=== PATIENT | female | born 1945 | race African-American/Black ===

== ENCOUNTER 2016-07-21 18:17 | Emergency (ER) | payer MEDICARE, OTHER ==
[~2016-07-21] VITALS: Ht 175.3 cm; Wt 100.0 kg
[~2016-07-21 18:17] MED LIST: CELE1CAP6 PO; CLON0.1T PO; CYCL1TAB29 PO; DICY10CA12 PO; FLUO20CA4 PO; GABA300C5 PO; GLIP10TA6 PO; HYDR-3133 PO; L-METAB10 PO; LIDO1PAD52 TOPICAL; MONT10TA2 PO; OMEP20TA PO; SITA1TAB2 PO; TRAM50TA PO; VALS320T4 PO; VERA120T3 PO
[2016-07-21 18:19] VITALS: BP 149/89; PULSE 91; RESP 16; TEMP 98.1; O2SAT 96
[2016-07-21] MEDS ORDERED: ROBA500T PO (19:50)
--- NOTE | 2016-07-21 19:56 | PD ---
HPI Chief Complaint: Back/ Neck Pain or Injury Time Seen by Provider: 19:50 Travel History International Travel<30 days: No Contact w/Intl Traveler<30days: No Traveled to known affect area: No History of Present Illness HPI 70-year-old black female presents emergency Department with complains of lower back cramping with radiation of pain into the right leg. The patient has a history of left sciatica which was operated on by Dr. Casey several years ago and had several pins in her back. She states that this seems somewhat similar but states that it appears to be more cramping this time. She denies any direct trauma. She does report a fall back in January but does not report having a back injury at that time. She is just recovering from right rotator cuff surgery from back in June. She denies any acute bowel or bladder changes. No numbness or tingling. She states the pain is worse when she stands, bends and moves. She also has more pain when she lays down. She finds sitting to be more comfortable. [facility] Past Medical History Narrative Medical Diabetes, heart disease, hypertension, degenerative disc disease with lumbar fusion, asthma, sarcoidosis Arthritis: Yes (BACK) Asthma: Yes Autoimmune Disease: Yes (SARCOIDOSIS) Blood Disorders: No Anxiety: Yes Depression: Yes Cancer: No Cardiovascular Problems: Yes (HTN) Diabetes: Yes Diminished Hearing: No Endocrine: Yes Genitourinary: No Headaches: Yes Hepatitis: No Hiatal Hernia: No Hypertension: Yes Immune Disorder: Yes (sarcodosis) Musculoskeletal: Yes (hx of sciatica, BILATERAL HIP PAIN, R SHOULDER PAIN) Neurologic: No Psychiatric: No Reproductive: No Respiratory: Yes (ASTHMA ) Immunizations Current: Yes Migraines: Yes Thyroid Disease: No Tetanus Vaccination: < 5 Years Menopausal: Yes Past Surgical History Abdominal Surgery: Yes (gastric by-pass) AICD: No Appendectomy: Yes Body Medical Devices: 3 SCREWS L HIP Cholecystectomy: Yes Gynecologic Surgery: Yes (hysterectomy) Hysterectomy: Yes Joint Replacement: Yes (loreto knees) Pacemaker: No Tympanostomy Tube: No Other Surgery: Yes (LEFT SHOULDER SUGERY -TORN ROTATOR CUFF) Social History Alcohol Use: No Tobacco Use: No Substance Use: No Allergies-Medications (Allergen,Severity, Reaction): Coded Allergies: Codeine (Verified Allergy, Severe, ITCHING, 07/21/16) Darvocet-N 100 (Verified Allergy, Severe, ITCHING, 07/21/16) Lortab (Verified Allergy, Severe, NAUSEA, ITCHING, 07/21/16) PT STATES SHE TAKES BENADRYL PRIOR TO TAKING LORTABS Morphine (Verified Allergy, Severe, ITCHING, 07/21/16) Percodan (Verified Allergy, Severe, GI UPSET, 07/21/16) Reported Meds & Prescriptions Reported Meds & Active Scripts Active Tramadol (Tramadol HCl) 50 Mg Tab 100 Mg PO Q6H PRN Reported Flexeril (Cyclobenzaprine HCl) 10 Mg Tab 20 Mg PO HS Lidocaine Patch 12 HR (Lidocaine) 5 % Patch 1 Patch TOPICAL BID Remove patch after 12 hours Januvia (Sitagliptin Phosphate) 100 Mg Tab 100 Mg PO HS Omeprazole 20 Mg Tab 20 Mg PO BID Foltanx (a-Mwmjywtohbfm-Irfkrrs B6-Cyanocobal) 3-35-2 Mg Tab 1 Tab PO DAILY Singulair (Montelukast Sodium) 10 Mg Tab 10 Mg PO HS Verapamil (Verapamil HCl) 120 Mg Tab 180 Mg PO HS Valsartan-Hydrochlorothiazide 320-12.5 Mg Tab 1 Tab PO DAILY Glipizide 10 Mg Tab 10 Mg PO DAILY Take 30 minutes before a meal Hydroxyzine HCl 25 Mg Tab 25 Mg PO HS PRN Gabapentin 300 Mg Cap 300 Mg PO HS Clonidine (Clonidine HCl) 0.1 Mg Tab 0.1 Mg PO BID PRN Fluoxetine (Fluoxetine HCl) 20 Mg Cap 20 Mg PO DAILY Celecoxib 100 Mg Cap 100 Mg PO BID Review of Systems Except as stated in HPI: all other systems reviewed are Neg Physical Exam Narrative GENERAL: Well-developed, obese, in no apparent distress. Nontoxic appearing. Moves slowly. HEAD: Normocephalic, atraumatic. EYES: Pupils equal round and reactive. Extraocular motions intact. No scleral icterus. No injection or drainage. ENT: Nose clear. Throat without erythema, tonsillar hypertrophy or exudate. Uvula midline. Airway patent. NECK: Trachea midline. Supple, nontender, moves head freely. No central bony tenderness or spasm. CARDIOVASCULAR: Regular rate and rhythm without murmurs, gallops, or rubs. RESPIRATORY: Clear to auscultation. Breath sounds equal bilaterally. No wheezes , rales, or rhonchi. GASTROINTESTINAL: Abdomen soft, non-tender, nondistended. No hepato-splenomegaly , or palpable masses. No guarding. EXTREMITIES: No clubbing, cyanosis, or edema. No joint tenderness. BACK: No central bony tenderness of palpation of dorsal lumbar spine. She complains of tenderness in the right SI region and right buttocks. No saddle anesthesia. Negative straight leg raise. No gross weakness. Without deformity. No flank tenderness. NEUROLOGICAL: Awake, alert and oriented x 3 .Cranial nerves grossly intact. Motor and sensory grossly within normal limits. Normal speech. Data Data Last Documented VS Vital Signs Date Time Temp Pulse Resp B/P Pulse Ox O2 Delivery O2 Flow Rate FiO2 07/21/16 18:19 98.1 91 16 149/89 96 Room Air MDM Medical Decision Making Medical Screen Exam Complete: Yes Emergency Medical Condition: Yes Medical Record Reviewed: Yes Differential Diagnosis MDM: High Differential diagnoses: AAA,Fracture, sprain, strain, HNP, nerve or vascular injury, epidural abscess, pilonidal cyst, pyelonephritis, UTI, nephrolithiasis, ureterolithiasis Narrative Course The patient sounds as if she is having exacerbation of sciatica which involving the right side of her back. She has allergies to opiates. She states that she cannot take narcotics. She typically takes Tylenol PM. I explained to her that we can add in a muscle relaxer and have her increase her Neurontin to 3 times a day. I've advised her to see her primary care doctor about getting a referral back to her neurosurgeon who performed her back surgery. She may need to have some additional imaging as well as injections if symptoms persist. I told her that I would not prescribe steroids at this time because of her diabetes. We will try the increase in Neurontin and Robaxin. She may consider also taking Ultram possibly. Diagnosis Primary Impression: lower back pain with right sciatica Patient Instructions: General Instructions Additional Instructions: Rest. Ice for the next 3 days followed by heat . Robaxin. Increase your gabapentin/Neurontin to 3 times a day.. Follow-up with a primary care doctor in one week. Consider follow-up with Dr. Casey your neurosurgeon. Return to the ER for emergencies. Med/Other Pt SpecificInfo: Prescription(s) given Scripts Methocarbamol (Robaxin)500 Mg [id number] Mg PO QID #40 TAB Prov:Shivam Muñoz MD 07/21/16 Disposition: 01 DISCHARGE HOME Condition: Stable Dom Reyes Jul 21, 2016 19:56
[2016-07-21] MEDS ORDERED: KETOROLAC TROMETHAMINE 60 MG/2 ML (IM) VIAL IM ONE (20:15)
[2016-07-21] MEDS ORDERED: ORPHENADRINE INJ 60 MG/2 ML AMP IM ONE (20:15)
== END 2016-07-21 20:30 | disposition home or self-care (01) ==
LOC: NEPB 18:17
DX: M54.31 Sciatica, right side (principal); M54.5 Low back pain; J45.909 Unspecified asthma, uncomplicated; I10 Essential (primary) hypertension; E11.9 Type 2 diabetes mellitus without complications; Z98.1 Arthrodesis status
CPT/HCPCS: 96372; 99283; J1885; J2360

== ENCOUNTER 2016-10-07 00:43 | Emergency (ER) | payer MEDICARE, OTHER ==
[~2016-10-07] VITALS: Ht 175.3 cm; Wt 100.0 kg
[~2016-10-07 00:43] MED LIST changes: -DICY10CA12 PO; +ROBA500T PO
[2016-10-07 00:46] VITALS: BP 174/78; PULSE 78; RESP 16; TEMP 98.1; O2SAT 99
[2016-10-07 00:58] VITALS: BP 155/72; PULSE 80; RESP 16; TEMP 98; O2SAT 99
== END 2016-10-07 01:16 | disposition left against medical advice (07) ==
LOC: NED 00:43
DX: R51 Headache (principal)
CPT/HCPCS: 99281

== ENCOUNTER 2017-01-01 09:46 | Emergency (ER) | payer MEDICARE, OTHER ==
[~2017-01-01] VITALS: Ht 170.2 cm; Wt 100.0 kg
[2017-01-01 09:49] VITALS: BP 134/66; PULSE 90; RESP 18; TEMP 99.5; O2SAT 97
[2017-01-01] MEDS ORDERED: SODIUM CHLOR 0.9% 1000 ML INJ 1,000 ML IV SCH (10:04)
--- NOTE | 2017-01-01 10:13 | PD ---
HPI Chief Complaint: GI Complaint Time Seen by Provider: 10:03 Travel History International Travel<30 days: No Contact w/Intl Traveler<30days: No Traveled to known affect area: No History of Present Illness HPI HAS HAD DUMPING SYNDROME SINCE 2005 OR SO, BUT IT HAS NEVER LASTED THIS LONG, NO NAUSEA/VOMITING, BUT MULTIPLE DIARRHEA BOUTS, YESTERDAY ABOUT 5-6 EPISODES ASSOC WITH EATING. NO ABD PAIN....NO FEVER/URI SX/CP/ PFSH Past Medical History Arthritis: Yes (BACK) Asthma: Yes Autoimmune Disease: Yes (SARCOIDOSIS) Blood Disorders: No Anxiety: Yes Depression: Yes Cancer: No Cardiovascular Problems: Yes (htn) Diabetes: Yes (metformin) Patient Takes Glucophage: No Diminished Hearing: No Endocrine: Yes Genitourinary: No Headaches: Yes Hepatitis: No Hiatal Hernia: No Hypertension: Yes Immune Disorder: Yes (sarcodosis) Musculoskeletal: Yes (hx of sciatica, BILATERAL HIP PAIN, R SHOULDER PAIN) Neurologic: No Psychiatric: No Reproductive: No Respiratory: Yes (asthma) Immunizations Current: Yes Migraines: Yes Thyroid Disease: No Menopausal: Yes Past Surgical History Abdominal Surgery: Yes (gastric by-pass) AICD: No Appendectomy: Yes Body Medical Devices: 3 SCREWS L HIP Cholecystectomy: Yes Gynecologic Surgery: Yes (hysterectomy) Hysterectomy: Yes Joint Replacement: Yes (loreto knees) Pacemaker: No Tympanostomy Tube: No Other Surgery: Yes (LEFT SHOULDER SUGERY -TORN ROTATOR CUFF) Social History Alcohol Use: No Tobacco Use: No Substance Use: No Allergies-Medications (Allergen,Severity, Reaction): Coded Allergies: Codeine (Verified Allergy, Severe, ITCHING, 07/21/16) Darvocet-N 100 (Verified Allergy, Severe, ITCHING, 07/21/16) Lortab (Verified Allergy, Severe, NAUSEA, ITCHING, 07/21/16) PT STATES SHE TAKES BENADRYL PRIOR TO TAKING LORTABS Morphine (Verified Allergy, Severe, ITCHING, 07/21/16) Percodan (Verified Allergy, Severe, GI UPSET, 07/21/16) Reported Meds & Prescriptions Reported Meds & Active Scripts Active Robaxin (Methocarbamol) 500 Mg Tab 500 Mg PO QID Tramadol (Tramadol HCl) 50 Mg Tab 100 Mg PO Q6H PRN Reported Lidocaine Patch 12 HR (Lidocaine) 5 % Patch 1 Patch TOPICAL BID Remove patch after 12 hours Januvia (Sitagliptin Phosphate) 100 Mg Tab 100 Mg PO HS Omeprazole 20 Mg Tab 20 Mg PO BID Foltanx (x-Ormrnocgdkjd-Yfmlecd B6-Cyanocobal) 3-35-2 Mg Tab 1 Tab PO DAILY Singulair (Montelukast Sodium) 10 Mg Tab 10 Mg PO HS Valsartan-Hydrochlorothiazide 320-12.5 Mg Tab 1 Tab PO DAILY Glipizide 10 Mg Tab 10 Mg PO DAILY Take 30 minutes before a meal Hydroxyzine HCl 25 Mg Tab 25 Mg PO HS PRN Gabapentin 300 Mg Cap 300 Mg PO HS Clonidine (Clonidine HCl) 0.1 Mg Tab 0.1 Mg PO BID PRN Celecoxib 100 Mg Cap 100 Mg PO BID Review of Systems Except as stated in HPI: all other systems reviewed are Neg Gastrointestinal: Positive: Diarrhea Physical Exam Narrative GENERAL: SKIN: Warm and dry. HEAD: Atraumatic. Normocephalic. EYES: Pupils equal and round. No scleral icterus. No injection or drainage. ENT: No nasal bleeding or discharge. Mucous membranes pink and moist. NECK: Trachea midline. No JVD. CARDIOVASCULAR: Regular rate and rhythm. RESPIRATORY: No accessory muscle use. Clear to auscultation. Breath sounds equal bilaterally. GASTROINTESTINAL: Abdomen soft, non-tender, nondistended. Hepatic and splenic margins not palpable. MUSCULOSKELETAL: Extremities without clubbing, cyanosis, or edema. No obvious deformities. NEUROLOGICAL: Awake and alert. No obvious cranial nerve deficits. Motor grossly within normal limits. Five out of 5 muscle strength in the arms and legs. Normal speech. PSYCHIATRIC: Appropriate mood and affect; insight and judgment normal. Data Data Last Documented VS Vital Signs Date Time Temp Pulse Resp B/P Pulse Ox O2 Delivery O2 Flow Rate FiO2 01/01/17 10:17 95 01/01/17 09:49 99.5 90 18 134/66 Orders Complete Blood Count With Diff (01/01/17 10:04) Comprehensive Metabolic Panel (01/01/17 10:04) Lipase (01/01/17 10:04) Prothrombin Time / Inr (Pt) (01/01/17 10:04) Act Partial Throm Time (Ptt) (01/01/17 10:04) Ct Abd/Pel W/O Iv Contrast (01/01/17 10:04) Iv Access Insert/Monitor (01/01/17 10:04) Ecg Monitoring (01/01/17 10:04) Oximetry (01/01/17 10:04) Sodium Chlor 0.9% 1000 Ml Inj (Ns 1000 M (01/01/17 10:04) Sodium Chloride 0.9% Flush (Ns Flush) (01/01/17 10:15) Labs Laboratory Tests Test 01/01/17 10:15 White Blood Count 7.9 TH/MM3 Red Blood Count 4.20 MIL/MM3 Hemoglobin 11.9 GM/DL Hematocrit 36.2 % Mean Corpuscular Volume 86.1 FL Mean Corpuscular Hemoglobin 28.4 PG Mean Corpuscular Hemoglobin 33.0 % Concent Red Cell Distribution Width 13.6 % Platelet Count 277 TH/MM3 Mean Platelet Volume 8.2 FL Neutrophils (%) (Auto) 56.1 % Lymphocytes (%) (Auto) 34.5 % Monocytes (%) (Auto) 6.9 % Eosinophils (%) (Auto) 1.3 % Basophils (%) (Auto) 1.2 % Neutrophils # (Auto) 4.4 TH/MM3 Lymphocytes # (Auto) 2.7 TH/MM3 Monocytes # (Auto) 0.5 TH/MM3 Eosinophils # (Auto) 0.1 TH/MM3 Basophils # (Auto) 0.1 TH/MM3 CBC Comment DIFF FINAL Differential Comment Prothrombin Time 10.7 SEC Prothromb Time International 1.0 RATIO Ratio Activated Partial 24.6 SEC Thromboplast Time Sodium Level 136 MEQ/L Potassium Level 3.8 MEQ/L Chloride Level 101 MEQ/L Carbon Dioxide Level 26.1 MEQ/L Anion Gap 9 MEQ/L Blood Urea Nitrogen 14 MG/DL Creatinine 1.08 MG/DL Estimat Glomerular Filtration 61 ML/MIN Rate Random Glucose 245 MG/DL Calcium Level 8.8 MG/DL Total Bilirubin 0.5 MG/DL Aspartate Amino Transf 20 U/L (AST/SGOT) Alanine Aminotransferase 16 U/L (ALT/SGPT) Alkaline Phosphatase 99 U/L Total Protein 7.5 GM/DL Albumin 3.2 GM/DL Lipase 136 U/L [facility] Medical Decision Making Medical Screen Exam Complete: Yes Emergency Medical Condition: Yes Medical Record Reviewed: Yes Differential Diagnosis VIRAL V BACTERIAL ENTERITIS V DUMPING SYNDROME Narrative Course ELECTROLYTES NL, CBC NO ANEMIA AND NO SHIFT, CT WAS ONLY POSITIVE FOR DIVERTICULOSIS, WILL D/C HOME WITH ANTI DIARRHEALS Diagnosis Primary Impression: DIARRHEA DUE TO DUMPING SYNDROME Additional Impression: DIVERTICULOSIS Patient Instructions: General Instructions Med/Other Pt SpecificInfo: Prescription(s) given Scripts Metronidazole (Flagyl)500 Mg [id number] Mg PO TID #21 TAB Ref 0 Prov:Gato Roberson MD 01/01/17 Diphenoxylate-Atropine (Lomotil)2.5-0.025 Mg Tab1 Tab PO Q6H PRN (DIARRHEA) #20 TAB Prov:Gato Roberson MD 01/01/17 Disposition: 01 DISCHARGE HOME Condition: Stable Gato Roberson MD Jan 01, 2017 10:13
[2017-01-01] MEDS ORDERED: SODIUM CHLORIDE 0.9% FLUSH 10 ML FLUSH IV FLUSH PRN (10:15)
[2017-01-01] MEDS ORDERED: FLUO20CA12 PO (10:16)
[2017-01-01 10:17] VITALS: O2SAT 95
[2017-01-01 10:28] LABS: AUTOMATED NEUTROPHIL # 4.4 TH/MM3 (1.8-7.7); BASOPHIL # 0.1 TH/MM3 (0-0.2); BASOPHIL % 1.2 % (0.0-2.0); EOSINOPHIL # 0.1 TH/MM3 (0-0.4); EOSINOPHIL % 1.3 % (0.0-4.0); HEMATOCRIT 36.2 % (35.0-46.0); HEMO FLAGS DIFF FINAL; LYMPH % 34.5 % (9.0-44.0); LYMPHOCYTE # 2.7 TH/MM3 (1.0-4.8); MEAN CELL VOLUME 86.1 FL (80.0-100.0); MEAN CORPUSCULAR HEMOGLOBIN 28.4 PG (27.0-34.0); MONO % 6.9 % (0.0-8.0); NEUT % 56.1 % (16.0-70.0); PLATELET COUNT 277 TH/MM3 (150-450); RED CELL DISTRIBUTION WIDTH 13.6 % (11.6-17.2); WHITE BLOOD COUNT 7.9 TH/MM3 (4.0-11.0)
[2017-01-01 10:33] LABS: APTT (PATIENT) 24.6 SEC (24.3-30.1); PROTHROMBIN TIME - PATIENT 10.7 SEC (9.8-11.6)
--- NOTE | 2017-01-01 10:38 | RADRPT ---
EXAM DATE/TIME: 01/01/2017 10:24 [facility] COMPARISON: CT ABDOMEN & PELVIS W CONTRAST, November 15, 2010, 18:20. INDICATIONS : Diarrhea. Possible renal calculi. ORAL CONTRAST: No oral contrast ingested. RADIATION DOSE: 16.61 CTDIvol (mGy) MEDICAL HISTORY : Cardiovascular disease. Hypertension. Sarcoidosis SURGICAL HISTORY : Gastric bypass. Cholecystectomy.Hysterectomy.Rectocele, Bladder repair ENCOUNTER: Initial ACUITY: 4 - 6 days PAIN SCALE: 6/10 LOCATION: medial abdomen TECHNIQUE: Volumetric scanning of the abdomen and pelvis was performed. Using automated exposure control and ad justment of the mA and/or kV according to patient size, radiation dose was kept as low as reasonably achievable to obtain optimal diagnostic quality images. FINDINGS: Lung bases are clear except for minimal scarring. No significant abnormalities in the liver, spleen, adrenals or pancreas. Linear scarring in both kidn eys. Postoperative gastric bypass surgery. No free fluid or free air. No bowel obstruction. Postoperative hysterectomy. Colonic diverticulosis without diverticulitis. Small fat-containing umbil ical hernia. Previous surgical fusion across the left sacroiliac joint. No acute bony abnormality. CONCLUSION: No acute findings with an abdomen and pelvic CT. Postoperative gastric bypass surgery, cholecystectom y, hysterectomy and fusion of left sacroiliac joint. Colonic diverticulosis without diverticulitis. No bowel obstruction, free air, free fluid or evidence for obstructive uropathy. Dom Mendez MD on January 01, 2017 at 10:32 Board Certified Radiologist. This report was verified electronically.
[2017-01-01 10:43] LABS: ANION GAP 9 MEQ/L (5-15); AST (GOT) 20 U/L (15-37); BICARBONATE 26.1 MEQ/L (21.0-32.0); BLOOD UREA NITROGEN 14 MG/DL (7-18); CHLORIDE 101 MEQ/L (98-107); GLOMERULAR FILTRATION RATE 61 ML/MIN (>89); POTASSIUM 3.8 MEQ/L (3.5-5.1); SODIUM (NA) 136 MEQ/L (136-145)
[2017-01-01 10:44] LABS: ALT (GPT) 16 U/L (10-53)
[2017-01-01 10:46] LABS: ALKALINE PHOSPHATASE 99 U/L (45-117); TOTAL BILIRUBIN ADULT 0.5 MG/DL (0.2-1.0)
[2017-01-01] MEDS ORDERED: LOMO2.5T PO (11:35)
[2017-01-01] MEDS ORDERED: METR-1 PO (11:35)
== END 2017-01-01 12:00 | disposition home or self-care (01) ==
LOC: NEPC 09:46
DX: K91.1 Postgastric surgery syndromes (principal); K57.90 Diverticulosis of intestine, part unspecified, without perforation or abscess without bleeding; D86.9 Sarcoidosis, unspecified; I10 Essential (primary) hypertension
CPT/HCPCS: 74176; 80053; 83690; 85025; 85610; 85730; 96360; 99285; J7030

== ENCOUNTER → 2017-01-20 | Day surgery (SDC) | payer MEDICARE, OTHER ==
[~2017-01-20] MED LIST changes: +BUPIVACAINE HCL PF 0.5% 30 ML VIAL ONE; -CYCL1TAB29 PO; +FLUO20CA12 PO; -FLUO20CA4 PO; +LOMO2.5T PO; +METR-1 PO; +PROPOFOL 200 MG/20 ML AMP IV ONE; +TRIAMCINOLONE ACETONIDE 40 MG/ML VIAL I-ARTICULR ONE; -VERA120T3 PO; +methylPREDNISolone ACETATE 40 MG/ML VIAL I-ARTICULR ONE
--- NOTE | 2017-01-21 10:24 | M6 ---
cc: MAYANK ARAUZ M.D. DATE: 01/20/2017 1945 PROCEDURE Fluoroscopically guided injection right sacroiliac joint. History and physical was completed and signed. Consent was signed. Procedure site was marked. Medications were listed and reconciled. Pain score was recorded. Allergies were noted. Time out was taken. Fluoroscopy time was recorded where applicable. Sedation was administered or directed by Dr. Arauz. The patient was given oxygen. The patient was monitored by a registered nurse. Total procedure time was greater than 15 minutes. IV was started, blood pressure cuff, pulse oximeter and EKG were applied. The patient was placed in the prone position on a Grupo table, sedated with small amounts of propofol titrated to effect. Vital signs were monitored and remained stable throughout the procedure. Fluoroscopy was used shooting from medial to lateral to clearly visualize the posterior joint line of the right sacroiliac joint. A 5-inch 22-gauge spinal needle was advanced into the joint under fluoroscopic guidance. There was negative aspiration for blood or any other type of fluid and the patient was given 2 mL of 0.5% Marcaine, 20 mg of Depo-Medrol, 20 mg of Kenalog. Following the procedure the patient was taken to the recovery room with stable vital signs, neurologically intact. She will be evaluated immediately and with followup to determine if she has a subjective decrease in her usual pain and a corresponding objective increase in her functional capabilities. W. MD DHRUV Cramer/MERRY /9:48 AM /10:23 AM
== END | disposition home or self-care (01) ==
LOC: PHSDC 08:30
PROVIDERS: ATTEND Pain Medicine Interventional Pain Medicine
DX: M53.3 Sacrococcygeal disorders, not elsewhere classified (principal); I10 Essential (primary) hypertension; E11.9 Type 2 diabetes mellitus without complications; J45.909 Unspecified asthma, uncomplicated
CPT/HCPCS: 99152; G0260; J1030; J3301; 27096

== ENCOUNTER → 2017-01-22 | Outpatient (CLI) | payer MEDICARE, OTHER ==
[~2017-01-22] MED LIST changes: -BUPIVACAINE HCL PF 0.5% 30 ML VIAL ONE; -METR-1 PO; -PROPOFOL 200 MG/20 ML AMP IV ONE; -TRIAMCINOLONE ACETONIDE 40 MG/ML VIAL I-ARTICULR ONE; -methylPREDNISolone ACETATE 40 MG/ML VIAL I-ARTICULR ONE
[2017-01-22 09:34] LABS: ANION GAP 8 MEQ/L (5-15); AST (GOT) 9 U/L (15-37); BICARBONATE 24.2 MEQ/L (21.0-32.0); BLOOD UREA NITROGEN 19 MG/DL (7-18); CHLORIDE 106 MEQ/L (98-107); GLOMERULAR FILTRATION RATE 75 ML/MIN (>89); GLUCOSE,FASTING 143 MG/DL (74-99); POTASSIUM 3.8 MEQ/L (3.5-5.1); SODIUM (NA) 138 MEQ/L (136-145)
[2017-01-22 09:36] LABS: ALT (GPT) 13 U/L (10-53)
[2017-01-22 09:37] LABS: ALKALINE PHOSPHATASE 84 U/L (45-117); HDL CHOLESTEROL 65.8 MG/DL (40.0-60.0); LDL CHOLESTEROL 114 MG/DL (0-99); TOTAL BILIRUBIN ADULT 0.3 MG/DL (0.2-1.0)
[2017-01-22 17:14] LABS: HEMOGLOBIN A1b 2.1 %; HEMOGLOBIN Ao 80.7 %; HEMOGLOBIN LA1C 2.3 %; HEMOGLOBIN P3 4.7 %
== END ==
LOC: CLAB 08:48
PROVIDERS: ATTEND Family Medicine
DX: E78.5 Hyperlipidemia, unspecified (principal); E78.00 Pure hypercholesterolemia, unspecified; D56.5 Hemoglobin E-beta thalassemia; E11.9 Type 2 diabetes mellitus without complications; Z01.01 Encounter for examination of eyes and vision with abnormal findings; Z79.891 Long term (current) use of opiate analgesic
CPT/HCPCS: 36415; 80053; 80061; 83036

== ENCOUNTER → 2017-02-03 | Day surgery (SDC) | payer MEDICARE, OTHER ==
[~2017-02-03] MED LIST changes: +IOHEXOL 180 MG/ML 20 ML VIAL (for RAD DIAG) NERV BLOCK ONE; +LIDOCAINE HCL 1% 30 ML VIAL NERV BLOCK ONE; +PROPOFOL 200 MG/20 ML AMP IV ONE; +TRIAMCINOLONE ACETONIDE 40 MG/ML VIAL NERV BLOCK ONE
--- NOTE | 2017-02-06 22:15 | M6 ---
cc: Sam ARAUZ DATE 02/03/17 1945 PROCEDURE Fluoroscopically guided right L4-5 and right L5-S1 transforaminal epidural steroid injection. PREPROCEDURE NOTE On 01/20/2017, we performed fluoroscopically guided injection of Ms. Leong's right sacroiliac joint. She is already status post left sacroiliac joint fusion. The next day following the sacroiliac joint injection, we talked with the patient and she states that her right-sided hip and buttocks pain reduced from an 8/10 down to a 1/10, so she had near-complete relief of her pain and that lasted for approximately three days. Now her pain is back to baseline. She is having some right buttocks pain with some extension into the right leg and we are performing a right L4-5 and right L5-S1 selective nerve root injection of local anesthetic and steroid and comparing the relief she has with the previous sacroiliac joint injection. History and physical was completed and signed. Consent was signed. Procedure site was marked. Medications were listed and reconciled. Pain score was recorded. Allergies were noted. Time out was taken. Fluoroscopy time was recorded where applicable. Sedation was administered or directed by Dr. Arauz. The patient was given oxygen. The patient was monitored by a registered nurse. Total procedure time was greater than 15 minutes. PROCEDURE NOTE: An IV was started, blood pressure cuff, pulse oximeter and EKG were applied. The patient was placed in the prone position on a Grupo table, sedated with small amounts of Versed and propofol titrated to effect. Vital signs were monitored and remained stable throughout the procedure. The patient remained responsive throughout the procedure. The lumbar area was scrubbed with antimicrobial solution, prepped with 10% Betadine solution, and draped with sterile drapes. Fluoroscopy was used in both the AP and lateral projections to clearly visualize the right L4-5 and right L5-S1 neural foramen. Then separate sterile 22 gauge, 3 1/2-inch Chiba needles were advanced under fluoroscopic guidance into the dorsal-most aspect of each foramen. There was negative aspiration for blood or CSF. There were no reported paresthesias by the patient. There was no washout of 2 mL of Omnipaque. Then after waiting approximately 60 seconds, the patient was slowly given 3 mL of 1% Xylocaine 3 mL of Omnipaque and 40 mg of Kenalog at each location. W. MD DHRUV Cramer/ /9:55 AM /10:04 PM
== END | disposition home or self-care (01) ==
LOC: PHSDC 07:22
PROVIDERS: ATTEND Pain Medicine Interventional Pain Medicine
DX: M54.5 Low back pain (principal); Z98.1 Arthrodesis status
CPT/HCPCS: 64483; 64484; 99152; J3301; Q9965

== ENCOUNTER → 2017-03-03 | Outpatient (CLI) | payer MEDICARE, OTHER ==
[~2017-03-03] MED LIST changes: +ACET25TA2 PO; +AMIO200T PO; +AMLO5 PO; +ATOR40TA16 PO; -CELE1CAP6 PO; -CLON0.1T PO; +COMMODE 3-IN-11 MIS; +DOCU1CAP39 PO; +GLIP5 PO; -IOHEXOL 180 MG/ML 20 ML VIAL (for RAD DIAG) NERV BLOCK ONE; -L-METAB10 PO; -LIDOCAINE HCL 1% 30 ML VIAL NERV BLOCK ONE; +METO25TA3 PO; +MONT10TA4 PO; +NEUR300C PO; +NOVOLOGP2 SQ; +PANT40TA3 PO; +PLAV75TA29 PO; +POLY17S PO; -PROPOFOL 200 MG/20 ML AMP IV ONE; +PROT40TA PO; +THERM PO; -TRIAMCINOLONE ACETONIDE 40 MG/ML VIAL NERV BLOCK ONE; +ULTR50TA5 PO; +VENTAER INH; +WHEEMIS3; +[UNRECOGNIZED DRUG - SUPPLY]
[2017-03-03 09:50] LABS: ANION GAP 8 MEQ/L (5-15); BICARBONATE 25.6 MEQ/L (21.0-32.0); BLOOD UREA NITROGEN 18 MG/DL (7-18); CHLORIDE 106 MEQ/L (98-107); GLUCOSE,FASTING 132 MG/DL (74-99); SODIUM (NA) 140 MEQ/L (136-145)
[2017-03-03 09:51] LABS: AST (GOT) 10 U/L (15-37); GLOMERULAR FILTRATION RATE 78 ML/MIN (>89)
[2017-03-03 09:55] LABS: ALKALINE PHOSPHATASE 90 U/L (45-117); ALT (GPT) 15 U/L (10-53); HDL CHOLESTEROL 83.1 MG/DL (40.0-60.0); LDL CHOLESTEROL 121 MG/DL (0-99); TOTAL BILIRUBIN ADULT 0.4 MG/DL (0.2-1.0)
[2017-03-03 17:48] LABS: HEMOGLOBIN A1b 2.3 %; HEMOGLOBIN Ao 80.6 %; HEMOGLOBIN LA1C 2.1 %; HEMOGLOBIN P3 4.2 %
== END ==
LOC: CLAB 08:30
PROVIDERS: ATTEND Family Medicine
DX: E78.00 Pure hypercholesterolemia, unspecified (principal); E78.3 Hyperchylomicronemia; D56.5 Hemoglobin E-beta thalassemia; E11.9 Type 2 diabetes mellitus without complications; Z79.891 Long term (current) use of opiate analgesic
CPT/HCPCS: 36415; 80053; 80061; 83036

== ENCOUNTER → 2017-03-19 | Day surgery (SDC) | payer MEDICARE, OTHER ==
[~2017-03-19] MED LIST changes: +IOHEXOL 180 MG/ML 20 ML VIAL (for RAD DIAG) EPIDURAL ONE; +LIDOCAINE HCL 1% 30 ML VIAL NERV BLOCK ONE; +PROPOFOL 200 MG/20 ML AMP IV ONE; +TRIAMCINOLONE ACETONIDE 40 MG/ML VIAL NERV BLOCK ONE
--- NOTE | 2017-03-19 21:33 | M6 ---
cc: Sam ARAUZ DATE 03/19/2017. 1945 PROCEDURE Fluoroscopically guided right L4-5 and right L5-S1 transforaminal epidural steroid injection. History and physical was completed and signed. Consent was signed. Procedure site was marked. Medications were listed and reconciled. Pain score was recorded. Allergies were noted. Time out was taken. Fluoroscopy time was recorded where applicable. Sedation was administered or directed by Dr. Arauz. The patient was given oxygen. The patient was monitored by a registered nurse. Total procedure time was greater than 15 minutes. PROCEDURE NOTE: An IV was started, blood pressure cuff, pulse oximeter and EKG were applied. The patient was placed in the prone position on a Grupo table, sedated with small amounts of Versed and propofol titrated to effect. Vital signs were monitored and remained stable throughout the procedure. The patient remained responsive throughout the procedure. The lumbar area was scrubbed with antimicrobial solution, prepped with 10% Betadine solution, and draped with sterile drapes. Fluoroscopy was used in both the AP and lateral projections to clearly visualize the right L4-5 and right L5-S1 neural foramen. Then separate sterile 22 gauge, 3 1/2-inch Chiba needles were advanced under fluoroscopic guidance into the dorsal-most aspect of each foramen. There was negative aspiration for blood or CSF. There were no reported paresthesias by the patient. There was no washout of 2 mL of Omnipaque. Then after waiting approximately 60 seconds, the patient was slowly given 3 mL of 1% Xylocaine 3 mL of Omnipaque and 40 mg of Kenalog at each location. Following this, the patient was taken to the recovery room with stable vital signs, neurologically intact. MD DHRUV Magana/ /10:49 AM /9:21 PM
== END | disposition home or self-care (01) ==
LOC: PHSDC 08:59
PROVIDERS: ATTEND Pain Medicine Interventional Pain Medicine
DX: M54.5 Low back pain (principal)
CPT/HCPCS: 64483; 64484; 99152; J3301; Q9965

== ENCOUNTER 2017-04-15 05:41 | Inpatient (IN) | payer MEDICARE, OTHER ==
[~2017-04-15] VITALS: Ht 177.8 cm; Wt 109.5 kg
[2017-04-15] VITALS (17 sets, daily range): BP systolic 139–220; BP diastolic 44–115; PULSE 54–92; RESP 14–22; TEMP 97.6–99.2; O2SAT 94–98
[~2017-04-15 05:41] MED LIST changes: -AMIO200T PO; -AMLO5 PO; -ATOR40TA16 PO; -COMMODE 3-IN-11 MIS; -DOCU1CAP39 PO; -GLIP5 PO; -IOHEXOL 180 MG/ML 20 ML VIAL (for RAD DIAG) EPIDURAL ONE; -LIDOCAINE HCL 1% 30 ML VIAL NERV BLOCK ONE; -METO25TA3 PO; -MONT10TA4 PO; -NEUR300C PO; -NOVOLOGP2 SQ; -PANT40TA3 PO; -PLAV75TA29 PO; -POLY17S PO; -PROPOFOL 200 MG/20 ML AMP IV ONE; -PROT40TA PO; -THERM PO; -TRIAMCINOLONE ACETONIDE 40 MG/ML VIAL NERV BLOCK ONE; -ULTR50TA5 PO; -VENTAER INH; -WHEEMIS3; -[UNRECOGNIZED DRUG - SUPPLY]
[2017-04-15] MEDS: METOPROLOL TARTRATE 5 MG/5 ML VIAL IVS SCH ×3 (05:59→06:10)
[2017-04-15] MEDS ORDERED: MORPHINE SULFATE 4 MG/ML INJ IV PUSH ONE (06:00)
[2017-04-15] MEDS ORDERED: diphenhydrAMINE HCL 50 MG/ML VIAL IV PUSH ONE (06:00)
[2017-04-15] MEDS ORDERED: LORazepam 2 MG/ML VIAL IV PUSH ONE (06:00)
[2017-04-15] MEDS ORDERED: NITROGLYCERIN 2% OINT 1 GM PACKET TOP ONE (06:00)
--- NOTE | 2017-04-15 06:05 | PD ---
HPI . Chest pain Chief Complaint: Chest Pain Time Seen by Provider: 05:51 Travel History International Travel<30 days: No Contact w/Intl Traveler<30days: No Traveled to known affect area: No History of Present Illness HPI Patient presents with a chief complaint of chest pain. Onset was about 9 PM. She states that she thought that it was heartburn and treated herself with a whole bottle of Pepto-Bismol over the course of the night as well as 3 Prilosec. She states that the Pepto-Bismol helped temporarily initially but that it is no longer helping. Her pain is getting progressively worse. It is associated with some shortness of breath. No nausea, no dizziness, no diaphoresis. No previous similar history. She states that her pain was initially exacerbated by laying flat but that now it no longer seems to matter. The pain is now constant, consistent and severe. There is no radiation of pain. PFSH Past Medical History Arthritis: Yes (BACK) Asthma: Yes Autoimmune Disease: Yes (SARCOIDOSIS) Blood Disorders: No Anxiety: Yes Depression: Yes Cancer: No Cardiovascular Problems: Yes (htn) Diabetes: Yes (metformin) Patient Takes Glucophage: Yes Diminished Hearing: No Endocrine: Yes Genitourinary: No Headaches: Yes Hepatitis: No Hiatal Hernia: No Hypertension: Yes Immune Disorder: Yes (sarcodosis) Medical other: No Musculoskeletal: Yes (hx of sciatica, BILATERAL HIP PAIN, R SHOULDER PAIN) Neurologic: No Psychiatric: No Reproductive: No Respiratory: Yes (asthma) Immunizations Current: Yes Migraines: Yes Thyroid Disease: No Menopausal: Yes Past Surgical History Abdominal Surgery: Yes (gastric by-pass) AICD: No Appendectomy: Yes Body Medical Devices: 3 SCREWS L HIP Cholecystectomy: Yes Gynecologic Surgery: Yes (hysterectomy) Hysterectomy: Yes Joint Replacement: Yes (loreto knees) Pacemaker: No Tympanostomy Tube: No Other Surgery: Yes (LEFT SHOULDER SUGERY -TORN ROTATOR CUFF) Social History Alcohol Use: No Tobacco Use: No Substance Use: No Allergies-Medications (Allergen,Severity, Reaction): Coded Allergies: acetaminophen (Unverified Allergy, Severe, ITCHING, 04/15/17) aspirin (Unverified Allergy, Severe, GI UPSET, 04/15/17) codeine (Unverified Allergy, Severe, ITCHING, 04/15/17) hydrocodone (Unverified Allergy, Severe, NAUSEA, ITCHING, 04/15/17) PT STATES SHE TAKES BENADRYL PRIOR TO TAKING LORTABS morphine (Unverified Allergy, Severe, ITCHING, 04/15/17) oxycodone (Unverified Allergy, Severe, GI UPSET, 04/15/17) propoxyphene (Unverified Allergy, Severe, ITCHING, 04/15/17) Reported Meds & Prescriptions Reported Meds & Active Scripts Active Robaxin (Methocarbamol) 500 Mg Tab 500 Mg PO QID Tramadol (Tramadol HCl) 50 Mg Tab 100 Mg PO Q6H PRN Reported Acetaminophen Pm Caplet (Acetaminophen/Diphenhydramine) 500 Mg-25 Mg Tablet 1 Tab PO HS Fluoxetine (Fluoxetine HCl) 20 Mg Capsule 20 Mg PO DAILY Lidocaine Patch 12 HR (Lidocaine) 5 % Patch 1 Patch TOPICAL BID Remove patch after 12 hours Januvia (Sitagliptin Phosphate) 100 Mg Tab 100 Mg PO HS Omeprazole 20 Mg Tab 20 Mg PO BID Singulair (Montelukast Sodium) 10 Mg Tab 10 Mg PO HS Valsartan-Hydrochlorothiazide 320-12.5 Mg Tab 1 Tab PO DAILY Glipizide 10 Mg Tab 10 Mg PO DAILY Take 30 minutes before a meal Hydroxyzine HCl 25 Mg Tab 25 Mg PO HS PRN Gabapentin 300 Mg Cap 900 Mg PO HS Review of Systems Except as stated in HPI: all other systems reviewed are Neg General / Constitutional: No: Fever, Chills Cardiovascular: Positive: Chest Pain or Discomfort Respiratory: Positive: Shortness of Breath Gastrointestinal: No: Nausea, Vomiting, Diarrhea Physical Exam Narrative GENERAL: Extremely anxious. SKIN: warm/dry. HEAD: Normocephalic. Atraumatic. EYES: Pupils equal and round. No scleral icterus. No injection or drainage. ENT: No nasal bleeding or discharge. Mucous membranes pink and moist. NECK: Trachea midline. Full range of motion without pain.. CARDIOVASCULAR: Regular rate and rhythm. Heart sounds are normal. RESPIRATORY: No accessory muscle use. Clear to auscultation. Breath sounds equal bilaterally. GASTROINTESTINAL: Abdomen soft. Nontender. Bowel sounds present. Nondistended. MUSCULOSKELETAL: No obvious deformities. No edema. NEUROLOGICAL: Awake and alert. No obvious cranial nerve deficits. Motor grossly within normal limits. Normal speech. PSYCHIATRIC: Anxious affect; insight and judgment normal. Data Data Last Documented VS Vital Signs Date Time Temp Pulse Resp B/P (MAP) Pulse Ox O2 Delivery O2 Flow Rate FiO2 04/15/17 06:19 67 16 172/84 (113) 96 Room Air Orders Orders Basic Metabolic Panel (Bmp) (04/15/17 05:51) Ckmb (Isoenzyme) Profile (04/15/17 05:51) Complete Blood Count With Diff (04/15/17 05:51) Magnesium (Mg) (04/15/17 05:51) Prothrombin Time / Inr (Pt) (04/15/17 05:51) Act Partial Throm Time (Ptt) (04/15/17 05:51) Troponin I (04/15/17 05:51) Chest, Single Ap (04/15/17 05:51) Ecg Monitoring (04/15/17 05:51) Iv Access Insert/Monitor (04/15/17 05:51) Oximetry (04/15/17 05:51) Morphine Inj (Morphine Inj) (04/15/17 06:00) Nitroglycerin 2% Oint (Nitroglycerin 2% (04/15/17 06:00) Metoprolol Tartrate Inj (Lopressor Inj) (04/15/17 06:00) Diphenhydramine Inj (Benadryl Inj) (04/15/17 06:00) Lorazepam Inj (Ativan Inj) (04/15/17 06:00) Consult Cardiology (04/15/17 ) Troponin I (04/15/17 09:00) Troponin I (04/15/17 12:00) Troponin I (04/15/17 15:00) Troponin I (04/15/17 18:00) Troponin I (04/15/17 21:00) Electrocardiogram (04/15/17 09:00) Electrocardiogram (04/15/17 12:00) Electrocardiogram (04/15/17 15:00) Electrocardiogram (04/15/17 18:00) Electrocardiogram (04/15/17 21:00) Heparin Infusion BECK.Q1H (04/15/17 06:50) Heparin Inj (Heparin Inj) (04/15/17 07:00) Heparin Inj (Heparin Inj) (04/15/17 13:00) Heparin Inj (Heparin Inj) (04/15/17 13:00) Heparin-D5w 25,000 U/250 Ml (Heparin-D5w (04/15/17 07:00) Act Partial Throm Time (Ptt) (04/15/17 06:50) Cbc No Diff, Includes Plts (04/15/17 06:50) Cbc No Diff, Includes Plts (04/18/17 06:00) Act Partial Throm Time (Ptt) (04/15/17 13:50) Occult Blood (Hemoccult) Stool (04/15/17 06:50) Labs Laboratory Tests Test 04/15/17 05:30 White Blood Count 10.4 TH/MM3 Red Blood Count 4.14 MIL/MM3 Hemoglobin 12.3 GM/DL Hematocrit 36.6 % Mean Corpuscular Volume 88.4 FL Mean Corpuscular Hemoglobin 29.7 PG Mean Corpuscular Hemoglobin Concent 33.6 % Red Cell Distribution Width 14.4 % Platelet Count 265 TH/MM3 Mean Platelet Volume 7.3 FL Neutrophils (%) (Auto) 47.8 % Lymphocytes (%) (Auto) 43.9 % Monocytes (%) (Auto) 6.8 % Eosinophils (%) (Auto) 0.6 % Basophils (%) (Auto) 0.9 % Neutrophils # (Auto) 5.0 TH/MM3 Lymphocytes # (Auto) 4.6 TH/MM3 Monocytes # (Auto) 0.7 TH/MM3 Eosinophils # (Auto) 0.1 TH/MM3 Basophils # (Auto) 0.1 TH/MM3 CBC Comment DIFF FINAL Differential Comment Prothrombin Time 9.9 SEC Prothromb Time International Ratio 0.9 RATIO Activated Partial Thromboplast Time 23.7 SEC Blood Urea Nitrogen 13 MG/DL Creatinine 0.97 MG/DL Random Glucose 170 MG/DL Calcium Level 8.6 MG/DL Magnesium Level 2.0 MG/DL Sodium Level 138 MEQ/L Potassium Level 4.1 MEQ/L Chloride Level 103 MEQ/L Carbon Dioxide Level 28.7 MEQ/L Anion Gap 6 MEQ/L Estimat Glomerular Filtration Rate 69 ML/MIN Total Creatine Kinase 89 U/L Troponin I 0.09 NG/ML Exceptions Acute Myocardial Infarction ASA Not Given on Arrival: Hx. Allergy/Adv. Reaction MDM Medical Decision Making Medical Screen Exam Complete: Yes Emergency Medical Condition: Yes Medical Record Reviewed: Yes (medical history of hypertension, diabetes, sarcoidosis anxiety/depression.) Interpretation(s) The first 2 EKGs that we obtained have an lot of artifact making it difficult to interpret. However, I do not see any obvious ST segment elevation or depression. She is in a normal rhythm. Differential Diagnosis Differential diagnosis of chest pain includes but is not limited to musculoskeletal pain, pulmonary embolism, acute coronary syndrome, pneumonia, pleurisy Narrative Course This patient presents with about a 9 hour history of chest pain which is getting progressively worse. She reports an allergy to morphine and that it makes her itch. She believes that she probably can take morphine if she is pretreated with Benadryl. Patient also reports allergy to aspirin. I have ordered Benadryl, Ativan and morphine for her pain and anxiety. I have ordered Nitropaste and metoprolol for her heart and blood pressure. Cardiac evaluation is in progress. CBC & BMP Diagram 04/15/17 05:30 Calcium Level 8.6, Magnesium Level 2.0 trop 0.09. CK 89. Chest x-ray is negative. The patient is better but her symptoms have not yet completely resolved. I am consulting both her primary care provider and cardiology. Critical Care Narrative Aggregate critical care time was 45 minutes. Time to perform other separately billable procedures was not included in the critical care time. My time did not include minutes spent treating any other patients simultaneously or on activities that did not directly contribute to the patient's treatment. The services I provided to this patient were to treat and/or prevent clinically significant deterioration due to chest pain, rule out ACS I provided critical care services requiring my management, as noted below: Chart data review, documentation time, medication orders and management, vital sign assessments/reviewing monitor data, ordering and reviewing lab tests, ordering and interpreting/reviewing x-rays and diagnostic studies, care of the patient and discussion of the patient with the admitting physicians Physician Communication Physician Communication Dr. Villasenor. They will see in consultation. Dr. Bustos who will admit. Diagnosis Primary Impression: Chest pain Qualified Codes: R07.9 - Chest pain, unspecified Admitting Information Admitting Physician Requests: Admit Condition: Stable Inge Layton MD Apr 15, 2017 06:05
[2017-04-15 06:16] LABS: BASOPHIL # 0.1 TH/MM3 (0-0.2); BASOPHIL % 0.9 % (0.0-2.0); EOSINOPHIL # 0.1 TH/MM3 (0-0.4); EOSINOPHIL % 0.6 % (0.0-4.0); HEMATOCRIT 36.6 % (35.0-46.0); HEMO FLAGS DIFF FINAL; LYMPH % 43.9 % (9.0-44.0); LYMPHOCYTE # 4.6 TH/MM3 (1.0-4.8); MEAN CELL VOLUME 88.4 FL (80.0-100.0); MEAN CORPUSCULAR HEMOGLOBIN 29.7 PG (27.0-34.0); MEAN CORPUSCULAR HGB CONC 33.6 % (32.0-36.0); MONO % 6.8 % (0.0-8.0); NEUT % 47.8 % (16.0-70.0); PLATELET COUNT 265 TH/MM3 (150-450); RED BLOOD COUNT 4.14 MIL/MM3 (4.00-5.30); RED CELL DISTRIBUTION WIDTH 14.4 % (11.6-17.2); WHITE BLOOD COUNT 10.4 TH/MM3 (4.0-11.0)
[2017-04-15 06:21] LABS: APTT (PATIENT) 23.7 SEC (24.3-30.1); INTERNATIONAL NORMALIZED RATIO 0.9 RATIO; PROTHROMBIN TIME - PATIENT 9.9 SEC (9.8-11.6)
--- NOTE | 2017-04-15 06:28 | RADRPT ---
EXAM DATE/TIME: 04/15/2017 05:54 [facility] COMPARISON: No previous studies available for comparison. INDICATIONS : Chest pain. MEDICAL HISTORY : Hypertension. SURGICAL HISTORY : None. ENCOUNTER: Initial ACUITY: 1 day PAIN SCORE: 4/10 LOCATION: Bilateral chest FINDINGS: A single view of the chest demonstrates the lungs to be symmetrically aerated without evidence of mas s, infiltrate or effusion. The cardiomediastinal contours are unremarkable. Osseous structures are intact. CONCLUSION: No evidence of acute cardiopulmonary disease. Mason Slater MD on April 15, 2017 at 6:27 Board Certified Radiologist. This report was verified electronically.
[2017-04-15 06:29] LABS: BICARBONATE 28.7 MEQ/L (21.0-32.0); POTASSIUM 4.1 MEQ/L (3.5-5.1)
[2017-04-15] MEDS ORDERED: HEPARIN-D5W 25,000 U/250 ML 250 ML IV PRN (07:00)
[2017-04-15] MEDS ORDERED: HEPARIN SODIUM - IV 10,000 UNITS/10 ML VIAL IV PUSH ONE (07:00)
[2017-04-15] MEDS ORDERED: IOHEXOL 350 MG/ML 50 ML BTL (for Cath Lab) OTHER ONE (07:02)
[2017-04-15] MEDS ORDERED: SODIUM CHLORIDE 0.9% FLUSH 10 ML FLUSH IV FLUSH PRN ×3 (07:15→14:00)
[2017-04-15] MEDS ORDERED: ACETAMINOPHEN 325 MG TAB PO PRN (07:15)
[2017-04-15] MEDS ORDERED: LACTULOSE SYRUP 20 GM/30 ML CUP PO PRN (07:15)
[2017-04-15] MEDS ORDERED: MAGNESIUM HYDROXIDE SUSP 30 ML CUP PO PRN (07:15)
[2017-04-15] MEDS ORDERED: SENNOSIDES 8.6 MG TAB PO PRN (07:15)
[2017-04-15] MEDS ORDERED: BISACODYL 10 MG SUPP RECTAL PRN (07:15)
[2017-04-15] MEDS ORDERED: DEXTROSE 50% IN WATER 50 ML VIAL(D50) IV PUSH PRN (07:15)
[2017-04-15] MEDS ORDERED: GLUCAGON 1 MG/ML VIAL OTHER PRN ×2 (07:15)
[2017-04-15] MEDS ORDERED: ZOLPIDEM TARTRATE 5 MG TAB PO PRN (07:15)
[2017-04-15] MEDS ORDERED: ONDANSETRON HCL 4 MG/2 ML VIAL IVP PRN (07:15)
[2017-04-15] MEDS ORDERED: NALOXONE HCL 0.4 MG/ML AMP IV PUSH PRN (07:15)
[2017-04-15] MEDS ORDERED: hydrALAZINE HCL 20 MG/ML VIAL IV PUSH PRN (07:30)
[2017-04-15] MEDS ORDERED: cloNIDine HCL 0.1 MG TAB PO PRN (07:30)
[2017-04-15] MEDS ORDERED: hydrOXYzine HCL 25 MG TAB PO PRN (07:30)
[2017-04-15] MEDS ORDERED: LORazepam 0.5 MG TAB PO PRN (07:30)
[2017-04-15] MEDS: PANTOPRAZOLE SODIUM 40 MG VIAL IV PUSH SCH (08:00)
[2017-04-15] MEDS ORDERED: RESP: ALBUTEROL 2.5 MG/IPRATROPIUM 0.5 MG NEB (SCH) NEB (08:00)
[2017-04-15] MEDS ORDERED: DEXT 5%-NACL 0.9% 1000 ML INJ 1,000 ML IV SCH (08:00)
[2017-04-15] MEDS: INSULIN ASPART SUPPLEMENTAL SCALE SQ SCH ×4 (08:00→21:00)
[2017-04-15] MEDS ORDERED: SODIUM CHLOR 0.9% 1000 ML INJ 1,000 ML IV SCH ×2 (08:41→10:26)
[2017-04-15] MEDS ORDERED: ASPIRIN 325 MG TAB ONE (08:44)
[2017-04-15] MEDS ORDERED: ASPIRIN 325 MG TAB PO SCH (08:45)
[2017-04-15] MEDS ORDERED: ASPIRIN 81 MG CHEW TAB ONE (08:48)
[2017-04-15] MEDS ORDERED: VALSARTAN 160 MG TAB PO SCH (09:00)
[2017-04-15] MEDS: FLUoxetine HCL 20 MG CAP PO SCH (09:00)
[2017-04-15] MEDS: DOCUSATE SODIUM 50 MG/SENNA 8.6 MG TAB PO SCH ×2 (09:00→21:16)
[2017-04-15] MEDS ORDERED: SODIUM CHLORIDE 0.9% FLUSH 10 ML FLUSH IV FLUSH SCH ×2 (09:00→21:00)
[2017-04-15] MEDS ORDERED: HYDROCHLOROTHIAZIDE 25 MG TAB PO SCH (09:00)
[2017-04-15] MEDS: METOPROLOL SUCCINATE 25 MG EXTENDED RELEASE TAB PO SCH (09:00)
[2017-04-15 09:30] LABS: HEMATOCRIT 37.9 % (35.0-46.0); MEAN CELL VOLUME 88.7 FL (80.0-100.0); MEAN CORPUSCULAR HEMOGLOBIN 28.9 PG (27.0-34.0); MEAN CORPUSCULAR HGB CONC 32.5 % (32.0-36.0); PLATELET COUNT 232 TH/MM3 (150-450); RED BLOOD COUNT 4.27 MIL/MM3 (4.00-5.30); RED CELL DISTRIBUTION WIDTH 14.4 % (11.6-17.2); REVIEW FLAG FINAL; WHITE BLOOD COUNT 7.7 TH/MM3 (4.0-11.0)
[2017-04-15] MEDS ORDERED: HEPARIN-NS/PF INJ 1,000 ML ONE (09:34)
[2017-04-15] MEDS ORDERED: MIDAZOLAM HCL 2 MG/2 ML VIAL ONE (09:35)
--- NOTE | 2017-04-15 09:44 | MB ---
cc: SILVERIO SERRATO M.D. DATE OF CONSULTATION: 04/15/2017 REASON FOR CONSULTATION Evaluation of chest pain. HISTORY OF PRESENT ILLNESS Nadira Leong is a 71-year-old woman with multiple risk factors for coronary artery disease. She has a family history of cardiac disease. She has hypertension and diabetes. She has a history of previous sarcoidosis involving the eyes, lungs and skin nodules. She has a history of obesity. She has never had chest pain until last night onset at about 8:00 to 9:00 p.m. She describes a feeling like an elephant on her chest, like a squeezing feeling, started in the epigastric area, went into the chest and down both arms. The pain has been persistent despite treatment with nitroglycerin in the ER. She is still having ongoing pain but it was not as severe as it was last night. Her troponin has come back elevated at 0.09 and I was consulted. PAST MEDICAL HISTORY 1. Diabetes. 2. Hypertension. 3. Sarcoidosis, previously involving the eyes, lungs and skin nodules. 4. Morbid obesity with previous stapling operation with reversal and now with dumping syndrome. 5. Degenerate arthritis with multiple orthopedic issues. PAST SURGICAL HISTORY 1. Appendectomy. 2. Hysterectomy. 3. Stomach stapling with reversal. 4. Partial hysterectomy. 5. Right shoulder surgery June 2016. 6. Right thumb surgery. 7. Vaginal repair for rectocele and cystocele. 8. Left sacroiliac fusion. 9. Bilateral knee surgery. FAMILY HISTORY Father had an enlarged heart. Mother of a heart attack. She has a daughter with CHF and a defibrillator. She has a sister that had two strokes. REVIEW OF SYSTEMS Notable for frequent diarrhea and unable to see well. The remaining review of systems is negative. PHYSICAL EXAMINATION GENERAL: An obese, pleasant -[place] female. She is in mild distress. VITAL SIGNS: Vital signs are charted. HEENT: Exam unremarkable. NECK: No JVD. No bruits. CHEST: Clear to auscultation. CARDIAC: S1, S2, regular rate and rhythm, 1/6 systolic murmur. ABDOMEN: Soft, nontender. EXTREMITIES: No clubbing, cyanosis or edema. Pulses are intact. EKG EKG shows sinus rhythm with minor nonspecific ST-T wave changes. ECHO DOPPLER A stat. echo Doppler shows left ventricular hypertrophy with preserved LV function, mild mitral regurgitation. LABORATORY Laboratories are charted. Creatinine is normal. Hematocrit is normal. Troponins is 0.09. IMPRESSION A 71-year-old female with ongoing chest pain, multiple cardiac risk factors and elevated troponin. Cannot exclude possible [id number]-[id number] elevation MN. Ongoing angina is of concern. RECOMMENDATIONS I recommend we go to cardiac catheterization to define her anatomy with possible revascularization if indicated. I obtained informed consent from the patient specifically going over the risks of stroke, heart attack, , etc., and she is agreeable to proceed. Cath will be done this morning once one of the cath rooms is ready. MD MICA Watts/DEBBY /8:44 AM /9:15 AM
[2017-04-15 09:45] LABS: APTT (PATIENT) 20.8 SEC (24.3-30.1)
--- NOTE | 2017-04-15 09:54 | EKG ---
Date Performed: 04/15/2017 Time Performed: 05:50:33 PTAGE: 71 years EKG: Sinus rhythm NONSPECIFIC T-WAVE ABNORMALITY BORDERLINE ECG NO PREVIOUS TRACING DOCTOR: Rommel Heath Interpretating Date/Time 04/15/2017 09:53:32
--- NOTE | 2017-04-15 09:59 | MH ---
cc: BRENDA ALEXANDER MD DATE OF ADMISSION 04/15/2017 CHIEF COMPLAINT Chest pain. HISTORY OF PRESENT ILLNESS Prashanth Leong is a 71-year-old -[place]iss female who has had a one-day onset of chest pain. She has been doing quite well as an outpatient and monitoring her diet closely and has had some issues with recurrent indigestion. She had an increase in chest pain and took Pepto-Bismol and acid reducers and became afraid and subsequently presented to the emergency room. EKG showed a normal sinus rhythm and she was found to have a troponin is 0.09. The patient was given nitroglycerin and morphine which caused some slight itching. She was started on heparin. I was thus called for hospital admission. I spoke with the emergency room doctor, Dr. Layton, and she reports she spoke with the silo man, Dr. Villasenor. The patient is now being set up for transport to the catheterization lab. She states her chest pain is resolved and she is describing an upper area of chest pain with radiation around her chest. She is very nervous. PAST MEDICAL HISTORY 1. Sarcoidosis 2. Asthma 3. Anxiety 4. Depression 5. Hypertension 6. Diabetes 7. Headaches 8. Sciatica PAST SURGICAL HISTORY 1. Gastric bypass 2. Left hip repair 3. Appendectomy 4. Hysterectomy 5. Cholecystectomy 6. Bilateral total knee arthroplasties 7. Left rotator cuff tear repair SOCIAL HISTORY No alcohol, tobacco or illicit drug usage. She is retired and lives at home with her , has a lot of support from her daughter. ALLERGIES TYLENOL, ASPIRIN, CODEINE, HYDROCODONE, MORPHINE, OXYCODONE AND PROPOXYPHENE. MEDICATIONS Home medications are: 1. Robaxin 2. Tramadol 3. Tylenol with Benadryl 4. Fluoxetine 5. Lidocaine patch 6. Januvia 7. Omeprazole 8. Singulair 9. Valsartan/HCTZ 320/12.5 10. Glipizide 11. Hydroxyzine 12. Gabapentin 10 REVIEW OF SYSTEMS Negative 14-point review of systems except as above. LABORATORY DATA CBC normal. Chemistry, glucose 170, troponin 0.09 otherwise normal BMP, INR 0.9. IMAGING STUDIES Chest x-ray shows no disease. PHYSICAL EXAM GENERAL: She is an alert -[place]iss female. She is laying flat. She is very nervous. HEENT: Oropharynx is clear. NECK: Carotids are clear. No JVD. CHEST: Clear. No wheezes, rales, crackles or coughing. CARDIOVASCULAR: Regular rate and rhythm. No murmurs, rubs, clicks or gallops. ABDOMEN: Soft, nontender. EXTREMITIES: No edema. SKIN: Clear. NEUROLOGIC: A and O x3. Strength is 5/5 in upper and lower extremities. EKG shows normal sinus rhythm, some artifact. She has had two EKG's. ASSESSMENT Non-ST elevation NC Chest pain Diabetes Urgent hypertension Headache Sarcoidosis Asthma PLAN The patient is going to cardiac catheterization now. Cardiology consult. N.p.o. D5 normal IV fluids Serial troponin levels A.m. CBC and BMP. Heparin drip Aspirin 325 x1 Clonidine p.r.n. Prozac 20 mg daily Neurontin 900 at bedtime Hydrochlorothiazide 12.5 daily Hydroxyzine p.r.n. for pruritus Ativan as needed Sliding scale insulin Toprol XL 25 mg daily Zofran p.r.n. Protonix 40 IV daily Diovan 320 daily Ambien p.r.n. Hemoccult stools Telemetry SCD's JOLANTA's Observation admission Brenda Alexander MD RP/LYDIA /9:11 AM /9:39 AM
[2017-04-15] MEDS ORDERED: METOPROLOL TARTRATE 5 MG/5 ML VIAL ONE (10:08)
[2017-04-15] MEDS ORDERED: NITROGLYCERIN-D5W 50 MG/250 ML 250 ML ONE (10:24)
[2017-04-15] MEDS ORDERED: BACITRACIN OINT 0.9 GM PKT TOP ONE (10:30)
[2017-04-15] MEDS ORDERED: ONDANSETRON HCL 4 MG/2 ML VIAL IV PUSH PRN (10:30)
--- NOTE | 2017-04-15 10:31 | CATHPROC ---
DIY HIS Report Study Information Study Number Admission Scheduled Start Study Start [id number] Apr 15 2017 7:01AM 04/15/2017 Apr 15 2017 8:53AM [facility] Service Cardiac Catheterization Admit Source Facility Department Emergency department [facility] - Flu[facility]er Physician and Clinical Staff Initial [employer] Surtass Analyst Maribel Yuan,ASHLEY Recorder Payal Jaimes RCIS Scrub Tu Ruelas,RT(R) Procedures Performed Procedure Location (Site) Vessel Name Coronary Angiograms LCA Left Coronary Coronary Angiograms RCA Right Coronary L Heart Cath LV Gram-hand inj. LV LV Ventricle Equipment Time Gang Drill Press Operator Description Size Mfg Part Number Used/Scraped TRANSDUCER, TRUWAVE [id number] 08:55 WILKERSON BRAN * Used W/STOCKCOCK *[id number] *[id number] *[id number] PIGTAIL ANG. 145 INFINITI [id number] CATHETER *[id number] 10:15 DAIG/[employer]. LIN[employer]ICAL ANGIOSEAL, FR6 VIP FR 6 Used *[id number] 08:55 [employer] PACK, CCL CUSTOM * Used *[id number] 08:55 Qiandao PACER PEN, SKIN DUAL W/ RULER * Used *[id number] 08:55 [employer] SHEATH, FR6.5 PRELUDE 11CM FR 6.5 038ACT Used *[id number] 08:55 [employer] WIRE, 3MMJ .035 180CM 180CM Used *[id number] 08:55 NAMIC MANIFOLD, 4 PORT * Used *[id number] 08:55 [employer] OMNIPAQUE, 350 MG, 100ML 100ML [id number] Used [id number] 08:55 [employer] BLANKET,WARM AIR CCL * Used *[id number] History: Allergies Allergy Reaction Morphine Tylenol Oxycodone History: Risk Factors Family History of Hypertension Dyslipidemia Previous NM Previous Heart Failure Premature CAD Yes No No No No Prior Valve Prior PCI Surgery No No Cerebrovascular Peripheral Artery Chronic Lung On Dialysis Disease Disease Disease No No No Yes History: Symptoms/Diagnosis Selection Items Chest pain History: Stress Tests Stress or Imaging Studies Performed No Labs Hgb (g/dl) Hct (%) Platelets (thousands) 11.60-17.00 35.00-51.00 150.00-450.00 12.3 36.6 265 BUN (mg/dl) Creatinine (mg/dl) BUN:Creatinine (1:x) 7.00-18.00 0.50-1.30 10.00-20.00 13 0.9 14.4 PT (sec) PTT (sec) INR (PTT:PT) 9.80-11.60 24.30-30.10 0.90-1.10 9.9 23.7 0.9 Medication Medication Total Dose (Bolus/Oral) Medication Total Dosage/Unit 1% XYLOCAINE 20 mL LOPRESSOR 5 mg VERSED 3 mg Medications (Bolus/Oral) Medication Time Given Dosage/Unit Administered By Reason VERSED 04/15/2017 9:49:21 AM 2 mg Mrache, Maribel 2 mg VERSED given in lab by Maribel Yuan RN in Left Hand via Peripheral IV. VERSED 04/15/2017 9:52:01 AM 1 mg Mrache, Maribel 1 mg VERSED given in lab by Maribel Yuan, ASHLEY in Left Hand via Peripheral IV. 1% XYLOCAINE 04/15/2017 9:55:46 AM 20 mL Isaac Willson Patient arrived on 20 mL 1% XYLOCAINE given by Isaac Willson in Right Groin via Subcutaneous. Ordered by Isaac Willson. LOPRESSOR 04/15/2017 10:09:21 AM 5 mg Isaac Willson 5 mg LOPRESSOR given in lab by Isaac Willson in Left Hand via Peripheral IV. Ordered by Isaac Willson . Medication (Drip) Medication Time Given Dosage/Unit Concentration/Unit Diluent (ml) Solution HEPARIN DRIP 04/15/2017 10:17:18 AM 1000 units/hr 56610 units 250 D5W 1000 units/hr HEPARIN DRIP given in lab by Isaac Willson in Left Hand via Peripheral IV. Pump/Drip Fl ow = 10 ml/hr [place] D5[place] [address] units in 250 ml. Ordered by Isaca Willson. IV Solutions 04/15/2017 9:55:18 AM 0 mL (IV) NaCl .9 Patient arrived on IV Solutions in Left Hand via Peripheral IV. Pump/Drip Flow = 20 ml/hr using NaCl .9. NITROGLYCERIN DRIP 04/15/2017 10:29:59 AM 10 mcg/min 50 mg 250 D5W 10 mcg/min NITROGLYCERIN DRIP given in lab by Isaac Willson via Peripheral IV. Pump/Drip Flow = 3 ml/ hr using D5W with a concentration of 50 mg in 250 ml. Ordered by Isaac Willson. Initial Case Assessment Cardiovascular HR Rhythm NIBP Chest Pain 64 r 172/86 8 Edema Present Skin color Skin None Normal Warm Circulatory - Right Pulses Dorsalis Pedis Femoral 2 2 Scale (0,1,2,3,4,d) Circulatory - Left Pulses Dorsalis Pedis Femoral 2 2 Scale (0,1,2,3,4,d) Respiration - General Respiration Rate SpO2 (%) O2 (lpm) (B/min) 18 100 2 Final Case Assessment Cardiovascular HR Rhythm NIBP Chest Pain 61 sr 170/84 0 Edema Present Skin color Skin None Normal Warm Circulatory - Right Pulses Dorsalis Pedis Femoral 2 2 Scale (0,1,2,3,4,d) Circulatory - Left Pulses Dorsalis Pedis Femoral 2 2 Scale (0,1,2,3,4,d) Neurological State Oriented to time-place- Alert Moves all extremities person Respiration - General Respiration Rate SpO2 (%) O2 (lpm) (B/min) 18 100 2 Chronological Log Time Study Chronological Log Vitals capture started with the following parameters, Patient=Adult, Interval=15 min, Initial Pr ukgyzj=663 mmHg, 9:34:46 Deflation Rate=5 mmHg 9:34:51 Reference ECG taken 9:34:59 Patient arrived via Bed. 9:35:13 Patient Name, D.O.B, / Armband Verified By R.N. 9:35:15 Consent signed by the physician and the patient and verified by the [facility] staff. 9:35:18 Pre-op and post- op instructions given; patient acknowledges understanding of instructions. 9:35:35 Presedation assessment performed by Fluorescent Solution Mixer RN. 9:35:39 Patient has been NPO for More than 6Hrs. 9:35:42 Skin Breakdown-none 9:36:12 HR=63 bpm, MDGN=959/77 mmhg, MuV6=251.0 %, Raymond=10 9:37:28 HR=63 bpm, HPDD=574/86 mmhg, FrI3=573.0 %, Raymond=10 9:39:27 HR=66 bpm, CDHY=947/86 mmhg, AnL4=766.0 %, Raymond=10 Assessment: Initial Case, HR=64 BPM, Rhythm=r, FQXS=697/86 mmhg, Chest Pain=8, Edema=None, Color =Normal, Skin = Warm 9:40:18 Right Pulses: Celso Ped=2, Femoral=2 Left Pulses: Celso Ped=2, Femoral=2 Respiration: Resp=18 B/min, LvK2=921 %, O2=2 lpm 9:41:30 CX=118 bpm, JFPI=720/84 mmhg, HkN9=835.0 %, Raymond=10 9:43:26 HR=65 bpm, HMTP=635/90 mmhg, YfF2=552.0 %, Raymond=10 9:45:31 HR=65 bpm, LPOR=641/80 mmhg, BqS5=452.0 %, Raymond=10 9:47:28 HR=63 bpm, ZTZR=231/86 mmhg, ArY2=645.0 %, Raymond=10 9:49:21 2 mg VERSED given in lab by Maribel Yuan RN in Left Hand via Peripheral IV. 9:49:29 HR=62 bpm, FZFU=552/89 mmhg, CbW3=482.0 %, Raymond=10 9:51:30 HR=64 bpm, ELBQ=210/81 mmhg, PpR1=628.0 %, Raymond=10 9:52:01 1 mg VERSED given in lab by Maribel Yuan RN in Left Hand via Peripheral IV. 9:52:51 Pressure channel 1 zeroed. 9:53:28 HR=63 bpm, HWXI=450/81 mmhg, BdY6=114.0 %, Raymond=10 9:53:42 Right groin prepped with 2% chlorhexidine, and draped after a 3 min. waiting time. Time Out. Correct patient, correct procedure, correct physician, power injector loaded, or not l oaded with contrast with 9:53:52 surgical team present. Time Out Concurred by MD and individual staff in procedure. 9:53:59 Case Start 9:55:18 Patient arrived on IV Solutions in Left Hand via Peripheral IV. Pump/Drip Flow = 20 ml/hr us ing NaCl .9. Patient arrived on 20 mL 1% XYLOCAINE given by Isaac Willson in Right Groin via Subcutaneous. Or dered by Demetris, 9:55:46 Isaac. 9:56:00 HR=64 bpm, CURV=839/82 mmhg, TdG8=223.0 %, Raymond=10 9:56:04 Access site was Right Femoral Artery. 9:56:15 A SHEATH, FR6.5 PRELUDE 11CM FR 6.5 was advanced into the Fem Art (right) using the Percutan eous technique. 9:57:28 HR=65 bpm, TSRU=984/86 mmhg, HdU5=237.0 %, Raymond=10 A JL 4.0 INFINITI CATHETER FR 6 was advanced over a wire. OMNIPAQUE, 350 MG, 100ML 100ML was use d for 9:57:45 injections. Recorded Pressure: Ao, HR=63, Condition=Condition 1 9:58:31 (Aorta) Ao 170/72/110 9:59:18 The LCA was injected and visualized at various angles. OMNIPAQUE, 350 MG, 100ML 100ML used. 9:59:29 HR=63 bpm, NTXE=804/80 mmhg, RhU5=293.0 %, Raymond=10 10:01:15 Catheter was removed A 3DRC INFINITI CATHETER FR 6 was advanced over a wire. OMNIPAQUE, 350 MG, 100ML 100ML was used for 10:01:17 injections. 10:01:28 HR=67 bpm, ZELP=665/82 mmhg, DpF8=305.0 %, Raymond=10 10:03:29 HR=67 bpm, WYMH=677/85 mmhg, CtW7=668.0 % 10:03:29 The RCA was injected and visualized at various angles. OMNIPAQUE, 350 MG, 100ML 100ML used . 10:06:02 HR=66 bpm, EBKA=640/83 mmhg, ThB2=230.0 %, Raymond=10 10:07:30 HR=67 bpm, UTWU=064/83 mmhg, OeQ4=311.0 %, Raymond=10 Recorded Pressure: LV, HR=67, Condition=Condition 1 10:07:38 (Left Ventricle) LV 168/6/14 Recorded Pressure: LV, HR=68, Condition=Condition 1 10:07:57 (Left Ventricle) LV 184/10/17 Recorded Pressure: LV, Ao, HR=68, Condition=Condition 1 10:08:58 (Left Ventricle) LV 184/3/12, (Aorta) Ao 181/76/120 10:09:10 The LV was manually injected with 8 cc's and visualized. OMNIPAQUE, 350 MG, 100ML 100ML use d. 10:09:21 5 mg LOPRESSOR given in lab by Isaac Willson in Left Hand via Peripheral IV. Ordered by Isaac Garrison. 10:09:33 HR=67 bpm, GCYS=926/69 mmhg, CpG3=061.0 %, Raymond=10 10:10:22 Catheter was removed 10:11:30 HR=64 bpm, RQQQ=520/84 mmhg, HpA4=216.0 %, Raymond=10 10:11:46 An injection in the Fem Art (right) was made through the SHEATH, FR6.5 PRELUDE 11CM FR 6.5. 10:12:06 NIBP STAT measurement started. 10:12:48 HR=65 bpm, MYGH=483/85 mmhg, QmI1=303.0 %, Raymond=10 10:13:57 ANGIOSEAL, FR6 VIP FR 6 placement in the Fem Art (right) 10:14:47 HR=67 bpm, SGZK=798/79 mmhg, XwN1=086.0 %, Raymond=10 10:14:53 Case End 10:14:55 Sterile dressing applied to site 10:14:58 No case complications noted. 10:15:06 Bedside Report will be given. 10:15:15 A Left Heart Cath was performed. 10:16:27 HX=755 bpm, CHMG=052/80 mmhg, SjG7=332.0 %, Raymond=10 1000 units/hr HEPARIN DRIP given in lab by Isaac Willson in Left Hand via Peripheral IV. Pump/D rip Flow = 10 ml/hr 10:17:18 [place] [address] units in 250 ml. Ordered by Isaac Willson. 10:18:22 HR=61 bpm, HODI=529/86 mmhg, EtL5=330.0 %, Raymond=10 10:19:35 HR=73 bpm, OPZN=177/86 mmhg, IjU1=850.0 %, Raymond=10 10:21:40 HR=58 bpm, KAMX=270/71 mmhg, UkZ7=244.0 %, Raymond=10 10:23:33 HR=60 bpm, HXYO=722/90 mmhg, PiN2=231.0 %, Raymond=10 10:25:36 HR=59 bpm, HZRT=807/86 mmhg, LvL6=446.0 %, Raymond=10 10:27:37 HR=60 bpm, FQDG=332/85 mmhg, ZhP9=272.0 %, Raymond=10 10:29:37 HR=61 bpm, LPIV=037/84 mmhg, UkK5=101.0 %, Raymond=10 10 mcg/min NITROGLYCERIN DRIP given in lab by Isaac Willson via Peripheral IV. Pump/Drip Flow = 3 ml/hr using 10:29:59 D5W with a concentration of 50 mg in 250 ml. Ordered by Isaac Willson. Assessment: Final Case, HR=61 BPM, Rhythm=sr, HSZS=400/84 mmhg, Chest Pain=0, Edema=None, [place] r=Normal, Skin = Warm Right Pulses: Celso Ped=2, Femoral=2 10:30:33 Left Pulses: Celso Ped=2, Femoral=2 Neurological: State=Alert, Ox3, HURD Respiration: Resp=18 B/min, DiR2=963 %, O2=2 lpm End Study - Contrast Media Used In Study Contrast Total Opened (mL) Total Used (mL) Total Wasted (mL) Omnipaque 50 50 0 End Study - Maximum Contrast Load Max Contrast Load (mL) 583.3 End Study - Radiation Exposure Fluoro Time (minutes) 3.6 End Study - Sheaths Sheaths Pulled By Sheath Hold Time (min) Isaac Willson End Study - Patient Disposition Complications Transferred To Telemetry Bed
--- NOTE | 2017-04-15 10:40 | MA ---
cc: SILVERIO SERRATO M.D. DATE 04/15/2017 PROCEDURE PERFORMED Left heart catheterization, left ventriculography, coronary angiography, right femoral angiograph with Angio-Seal placement. DESCRIPTION OF PROCEDURE The patient was brought to the wharf labourer under urgent conditions. The right groin was prepped and draped in a sterile fashion. Using 1% lidocaine for local anesthesia, a 6-1/2 Lebanese sheath was inserted in the right femoral artery. Left coronary angiography was completed using a left four Eric catheter. Right coronary angiography was performed using a 6-Lebanese 3DRC catheter and there is marked pressure damping due to ostial disease of the right coronary artery. A left ventricular pressure was then recorded using a pigtail catheter followed by left ventriculography and then a pullback. Angiography was then obtained of the right femoral artery via the sheath followed by an uncomplicated Angio-Seal placement. She received 5 mg of IV Lopressor and was started on a nitroglycerin drip and cardiac surgery is going to be consulted. FINDINGS HEMODYNAMICS Left ventricle pressure was 184/3 with an end-diastolic pressure 12. Aortic pressure is 181/76 with a mean of 120. There is no gradient during pullback from left ventricle to the aorta. LEFT VENTRICULOGRAPHY Left ventriculography shows a symmetrically poncho left ventricle with an estimated ejection fraction of 65%. CORONARY ANGIOGRAPHY Left main coronary artery is long and irregular. The circumflex artery is a diminutive sized vessel. The left main then shortly after the circumflex vessel bifurcates to a large ramus intermediate branch and the LAD. The LAD has a long zone of disease starting at the ostium extending to the mid vessel with 80% severity and possibly ulceration. The ramus intermediate branch has 75% ostial disease. It bifurcates into two large branches. The more medial branch has 20% irregularities. The right coronary artery is dominant and has a calcified ostial 60% stenosis with pressure damping. CONCLUSIONS 1. Systolic hypertension. 2. Normal left ventricular systolic function. 3. Three-vessel coronary artery disease. RECOMMENDATIONS Coronary artery bypass grafting to the right coronary artery, LAD and ramus intermediate branch. MD MICA Watts/LYDIA 10:22 AM /10:28 AM
[2017-04-15] MEDS: amLODIPine BESYLATE 5 MG TAB PO SCH (10:45)
[2017-04-15] MEDS: NITROGLYCERIN-D5W 50 MG/250 ML 250 ML IV PRN (11:00)
[2017-04-15] MEDS: NITROGLYCERIN 2% OINT 1 GM PACKET TOPICAL SCH ×2 (12:00→18:26)
[2017-04-15] MEDS ORDERED: PILL SPLITTER OTHER PRN (12:15)
[2017-04-15] MEDS: HYDROmorphone HCL PF 1 MG/ML VIAL IV PUSH PRN (12:40)
[2017-04-15] MEDS: HEPARIN-D5W 25,000 U/250 ML 250 ML IV PRN (12:42)
[2017-04-15] MEDS ORDERED: HEPARIN SODIUM - IV 10,000 UNITS/10 ML VIAL IV PUSH PRN ×2 (13:00)
--- NOTE | 2017-04-15 13:51 | PD.CAR.PN ---
CVT Progress Note Subjective/Hospital Course: sts data discussed with pt RISK SCORES About the STS Risk Calculator Procedure: CAB Only Risk of Mortality: 2.165% Morbidity or Mortality: 20.678% Long Length of Stay: 11.345% Short Length of Stay: 20.894% Permanent Stroke: 1.547% Prolonged Ventilation: 14.468% DSW Infection: 1.327% Renal Failure: 5.569% Reoperation: 6.149% Objective: Vital Signs Date Time Temp Pulse Resp B/P (MAP) Pulse Ox O2 Delivery O2 Flow Rate FiO2 04/15/17 12:15 63 04/15/17 11:00 97.6 84 16 166/44 (84) 97 04/15/17 11:00 87 04/15/17 08:34 62 18 150/59 (89) 96 Room Air 04/15/17 08:33 96 Room Air 04/15/17 06:19 67 16 172/84 (113) 96 Room Air 04/15/17 05:44 86 22 220/115 (150) 98 Labs: Laboratory Tests Test 04/15/17 05:30 04/15/17 09:00 White Blood Count 10.4 TH/MM3 (4.0-11.0) 7.7 TH/MM3 (4.0-11.0) Red Blood Count 4.14 MIL/MM3 (4.00-5.30) 4.27 MIL/MM3 (4.00-5.30) Hemoglobin 12.3 GM/DL (11.6-15.3) 12.3 GM/DL (11.6-15.3) Hematocrit 36.6 % (35.0-46.0) 37.9 % (35.0-46.0) Mean Corpuscular Volume 88.4 FL (80.0-100.0) 88.7 FL (80.0-100.0) Mean Corpuscular Hemoglobin 29.7 PG (27.0-34.0) 28.9 PG (27.0-34.0) Mean Corpuscular Hemoglobin Concent 33.6 % (32.0-36.0) 32.5 % (32.0-36.0) Red Cell Distribution Width 14.4 % (11.6-17.2) 14.4 % (11.6-17.2) Platelet Count 265 TH/MM3 (150-450) 232 TH/MM3 (150-450) Mean Platelet Volume 7.3 FL (7.0-11.0) 7.3 FL (7.0-11.0) Neutrophils (%) (Auto) 47.8 % (16.0-70.0) Lymphocytes (%) (Auto) 43.9 % (9.0-44.0) Monocytes (%) (Auto) 6.8 % (0.0-8.0) Eosinophils (%) (Auto) 0.6 % (0.0-4.0) Basophils (%) (Auto) 0.9 % (0.0-2.0) Neutrophils # (Auto) 5.0 TH/MM3 (1.8-7.7) Lymphocytes # (Auto) 4.6 TH/MM3 (1.0-4.8) Monocytes # (Auto) 0.7 TH/MM3 (0-0.9) Eosinophils # (Auto) 0.1 TH/MM3 (0-0.4) Basophils # (Auto) 0.1 TH/MM3 (0-0.2) CBC Comment DIFF FINAL Differential Comment Prothrombin Time 9.9 SEC (9.8-11.6) Prothromb Time International Ratio 0.9 RATIO Activated Partial Thromboplast Time 23.7 SEC (24.3-30.1) 20.8 SEC (24.3-30.1) Blood Urea Nitrogen 13 MG/DL (7-18) Creatinine 0.97 MG/DL (0.50-1.00) Random Glucose 170 MG/DL (74-106) Calcium Level 8.6 MG/DL (8.5-10.1) Magnesium Level 2.0 MG/DL (1.5-2.5) Sodium Level 138 MEQ/L (136-145) Potassium Level 4.1 MEQ/L (3.5-5.1) Chloride Level 103 MEQ/L (98-107) Carbon Dioxide Level 28.7 MEQ/L (21.0-32.0) Anion Gap 6 MEQ/L (5-15) Estimat Glomerular Filtration Rate 69 ML/MIN (>89) Total Creatine Kinase 89 U/L (26-192) Troponin I 0.09 NG/ML (0.02-0.05) 0.22 NG/ML (0.02-0.05) Result Diagram: 04/15/17 0900 04/15/17 0530 Isi Oliveira Apr 15, 2017 13:51
[2017-04-15] MEDS ORDERED: METOPROLOL TARTRATE 25 MG TAB PO SCH (14:00)
[2017-04-15] MEDS ORDERED: ceFAZolin 2 GM PREMIX 50 ML IV SCH (14:00)
[2017-04-15] MEDS ORDERED: CHLORHEXIDINE GLUCONATE 4% SOLN 120 ML BTL TOPICAL SCH (14:00)
[2017-04-15] MEDS ORDERED: PAPAVERINE INJ 60 MG, NITROGLYCERIN INJ 100 MCG, DILTIAZEM INJ 100 MG in SODIUM CHLORID... IRRIGATION SCH (14:00)
[2017-04-15] MEDS ORDERED: INSULIN REGULAR (IV INFUSION) 100 UNITS in SODIUM CHLORIDE 0.9% INJ 99 ML IV PRN (14:00)
[2017-04-15 14:23] LABS: APTT (PATIENT) 30.2 SEC (24.3-30.1)
[2017-04-15] MEDS ORDERED: CEFAZOLIN INJ 500 MG in SODIUM CHLORIDE 0.9% IRR BTL 500 ML IRRIGATION SCH (15:00)
--- NOTE | 2017-04-15 15:48 | MB ---
cc: SILVERIO WILLSON,BRENDA SHELL MD DATE OF : 1945 DATE OF CONSULTATION: 04/15/2017 HISTORY OF PRESENT ILLNESS: The patient is a 48 year-old female, patient of Dr. Brenda Bustos, Dr. Silverio Willson, with history of chest pain that brought her into the emergency room. She was admitted approximately 7 o'clock this morning to the emergency department. The pain started last evening about 8 to 9 o'clock, described it as an elephant sitting on her chest, felt squeezing on both of her arms. The pain was persistent despite treatment with nitro in the emergency department. She had a troponin bump from 0.9 to 0.22. She underwent cardiac catheterization and was found to have a non STEMI by Dr. Silverio Willson, which showed ejection fraction of 55%. The LAD had a long zone of disease starting at the ostium extending to the mid vessel with 80% stenosis. The ramus intermedius had a 75% ostial disease. The RCA had 60% ostial stenosis with pressure dampening. We were consulted to evaluate for coronary artery bypass grafting. The cardiac films have been evaluated by Dr. David Paulino. PAST MEDICAL HISTORY: Significant for: 1. Diabetes mellitus type 2 on oral medications. 2. Hypertension. 3. History of sarcoidosis that she was diagnosed in the 70s, was on steroids in the past, and was also diagnosed by lung biopsy by bronchoscopy. The sarcoid involved the eyes, the lungs and the skin nodules. 4. Morbid obesity. 5. Previous stomach stapling with reversal and dumping syndrome. 6. Degenerative arthritis. PAST SURGICAL HISTORY: 1. Appendectomy. 2. Hysterectomy. 3. Gastric bypass. 4. Stomach stapling with reversal. 5. Right shoulder surgery. 6. Right gum surgery. 7. Vaginal repair with rectocele, cystocele. 8. Lap sacroiliac fusion. 9. Bilateral knee surgery. 10. Brachial cleft cyst surgery. ALLERGIES: ACETAMINOPHEN ASPIRIN CODEINE HYDROCODONE MORPHINE OXYCODONE DARVOCET HOME MEDICATIONS: 1. Robaxin. 2. Diovan 320/12.5. 3. Tramadol 4. She has an allergy to acetaminophen, however, she is taking acetaminophen with Benadryl at night. 5. Gabapentin 900 p.o. q hs. 6. Paxil 20 p.o. daily. 7. Hydroxyzine 20 p.r.n. for itching. 8. Singular 10 p.o. daily. 9. Omeprazole 20 b.i.d. 10. Januvia 100 p.o. q hs. 11. Glipizide 10 daily. 12. Lidocaine patch 13. Lomotil p.r.n. FAMILY HISTORY: Father had an enlarged heart. Mother from myocardial infarction. She has a daughter with CHF and defibrillator, and a sister who has had two strokes. SOCIAL HISTORY: The patient is , lives with her , sister and daughter. She is subject to second hand smoke from her . She, herself, has never smoked. She has nine children, three biological and six adopted. REVIEW OF SYSTEMS: GENERAL: No night sweats, fever, heat and cold intolerance. SKIN: No psoriasis, itching or hives. HEENT: No blurred vision, hearing loss. RESPIRATORY: No cough, occasional shortness of breath. CARDIOVASCULAR: As above in the HPI. GASTROINTESTINAL: History of dumping syndrome. GENITOURINARY: No burning, frequency, urgency. ALGORITHM DEVELOPER: No history of TIA, CVA, seizure disorder. ENDOCRINE: Positive for diabetes mellitus. PHYSICAL EXAMINATION: VITAL SIGNS: Blood pressure 160/60, heart rate of 84, afebrile. O2 sat 97 on room air. GENERAL: Patient is awake, alert in no acute distress. HEAD: Normocephalic, atraumatic. Pupils equal and reactive. Oral mucosa pink, moist. NECK: Supple. No JVD. HEART: Heart sounds S1-S2 Regular rate and rhythm. No audible rubs, murmurs, gallops. LUNGS: Diminished in the bases, otherwise clear to auscultation. No rales, rhonchi or wheezing. ABDOMEN: Obese, soft. Positive bowel sounds. EXTREMITIES: Reveal no clubbing, cyanosis or edema. She has bilateral knee scars. SKIN: She has a well-healed scar to her neck area. She has a large Y-shaped healed scar to her abdomen. LABORATORY DATA: Hemoglobin 12.3, hematocrit 37, white cell count 7.7, platelet count 232, sodium 138, potassium 4.1, BUN 13, creatinine 0.97, glucose 170, troponin 0.09 and 0.22. IMAGING STUDIES: Chest x-ray: Unremarkable. EKG. Sinus rhythm with nonspecific T-wave changes. IMPRESSION This is very pleasant 71 year-old female with history of sarcoidosis. She has been off steroids for many years, also history of morbid obesity with stomach stapling and dumping syndrome with acute non STEMI, elevated troponin. Catheterization showed multivessel disease. The cardiac films again have been reviewed by Dr. David Paulino. Planning will be for coronary artery bypass grafting to the LAD, ramus and RCA on April 17. She has further workup to include lower extremity ultrasounds, carotid ultrasound, pulmonary function testing. Will also check a chest CT in regards to history of lung involved sarcoidosis. Further planning per Dr. David Paulino. Her STS score is 2.165 and the STS status has been discussed with the patient and placed in the electronic record. Dictated by: YOLIS Schulz David GE/ADÁN /2:08 PM /8:01 AM
--- NOTE | 2017-04-15 16:09 | ECHRPT ---
Indication: Chest Pain CONCLUSIONS The left ventricular systolic function is normal with an estimated ejection fraction in the range of 55-60%. Normal left ventricular size. Mild concentric left ventricular hypertrophy. No regional wall motion abnormalities are present. Zmwt-vc-[id number] mitral valve regurgitation. Trace aortic valve regurgitation. There is mild tricuspid valve regurgitation. The estimated pulmonary arterial pressure is 36 mmHg. Mild to moderate pulmonary valve regurgitation. BP: 172 / 84 HR: 67 Rhythm: Sinus MEASUREMENTS (Male / Female) Normal Values Technical Quality:Good 2D ECHO LV Diastolic Diameter PLAX 3.8 cm 4.2 - 5.9 / 3.9 - 5.3 cm LV Systolic Diameter PLAX 2.7 cm IVS Diastolic Thickness 1.5 cm 0.6 - 1.0 / 0.6 - 0.9 cm LVPW Diastolic Thickness 1.5 cm 0.6 - 1.0 / 0.6 - 0.9 cm LV Relative Wall Thickness 0.8 RV Internal Dim ED PLAX 2.6 cm LVOT Diameter 1.9 cm LA Systolic Diameter LX 3.9 cm 3.0 - 4.0 / 2.7 - 3.8 cm LV Ejection Fraction MOD 4C 54.8 % LV Cardiac Index MOD 4C 1335.0 cm/minm LV Ejection Fraction 4C AL 56.4 % LV Cardiac Index 4C AL 1431.3 cm/minm M-MODE Aortic Root Diameter MM 3.2 cm LA Systolic Diameter MM 3.8 cm LA Ao Ratio MM 1.2 AV Cusp Separation MM 1.9 cm DOPPLER AV Peak Velocity 99.5 cm/s AV Peak Gradient 4.0 mmHg AI Peak Velocity 279.0 cm/s AI Peak Gradient 31.1 mmHg AI Pressure Half Time 755.0 ms LVOT Peak Velocity 77.5 cm/s LVOT Peak Gradient 2.4 mmHg AV Area Cont Eq pk 2.2 cm MV Area PHT 2.5 cm Mitral E Point Velocity 54.8 cm/s Mitral A Point Velocity 88.8 cm/s Mitral E to A Ratio 0.6 LV E' Lateral Velocity 4.6 cm/s Mitral E to LV E' Lateral Ratio 12.0 LV E' Septal Velocity 4.6 cm/s Mitral E to LV E' Septal Ratio 12.0 TR Peak Velocity 255.0 cm/s TR Peak Gradient 26.0 mmHg Right Atrial Pressure 10.0 mmHg Pulmonary Artery Systolic Pressu 36.0 mmHg Right Ventricular Systolic Press 36.0 mmHg PV Peak Velocity 80.1 cm/s PV Peak Gradient 2.6 mmHg FINDINGS LEFT VENTRICLE The left ventricular systolic function is normal with an estimated ejection fraction in the range of 55-60%. Normal left ventricular size. Mild concentric left ventricular hypertrophy. No regional wall motion abnormalities are present. RIGHT VENTRICLE Normal right ventricular size and systolic function. LEFT ATRIUM The left atrial size is normal. RIGHT ATRIUM The right atrial size is normal. ATRIAL SEPTUM Normal atrial septal thickness without atrial level shunting by limited color doppler interrogation. AORTA The aortic root and proximal ascending aorta are normal in size on limited imaging. MITRAL VALVE Strq-av-pcuwoidm mitral valve regurgitation. AORTIC VALVE Trace aortic valve regurgitation. TRICUSPID VALVE There is mild tricuspid valve regurgitation. The estimated pulmonary arterial pressure is 36 mmHg. PULMONARY VALVE Mild to moderate pulmonary valve regurgitation. VESSELS The inferior vena cava is normal in size. PERICARDIUM No pericardial effusion. Dave Ayala MD, FACC (Electronically Signed) Final Date:15 April 2017 16:07
[2017-04-15] MEDS: diphenhydrAMINE HCL 50 MG/ML VIAL IV PUSH PRN ×2 (16:18→22:30)
--- NOTE | 2017-04-15 16:22 | RADRPT ---
EXAM DATE/TIME: 04/15/2017 14:35 [facility] COMPARISON: No previous studies available for comparison. INDICATIONS : Pre-Op cardiac surgery. MEDICAL HISTORY : Hypertension. Migraine. Diabetes. Sarcodosis. SURGICAL HISTORY : Appendectomy. Cholecystectomy. Tonsillectomy. Cataract removal. Gastric bypass with reversal. Hystere ctomy. Bladder surgery. Bunion removal. Hip surgery. Bilateral knee replacement. ENCOUNTER: Initial ACUITY: 1 day PAIN SCORE: 0/10 LOCATION: Bilateral neck PEAK SYSTOLIC VELOCITIES (cm/sec): ICA/CCA RATIO: Right: 1.5 Left: 1.2 ICA: Right: 95.1 Left: 91.9 CCA: Right: 92.4 Left: 72.1 ECA: Right: 74.6 Left: 101.6 VERTEBRAL: Right: 54.3 antegrade Left: 59.2 antegrade Elevated flow velocities and ICA/CCA ratios have been found to correlate with increased degrees of vessel stenosis, calculated as percentage of diameter relative to a normal segment of distal ICA/CCA FINDINGS: RIGHT CAROTID: Mild calcified plaque extending from the carotid bulb to the origin of the internal carotid artery. N o significant stenosis is visualized. The waveforms are within normal limits. LEFT CAROTID: Mild calcified plaque extending from the carotid bulb to the origin of the internal carotid artery. N o significant stenosis is visualized. The waveforms are within normal limits. VERTEBRAL ARTERIES: Antegrade flow is seen in both vertebral arteries. MISCELLANEOUS: None. CONCLUSION: 1. Mild calcified carotid plaque without significant flow-limiting stenosis. 2. Antegrade vertebral artery flow bilaterally. Daniel Alatorre MD on April 15, 2017 at 16:19 Board Certified Radiologist. This report was verified electronically.
--- NOTE | 2017-04-15 16:22 | RADRPT ---
EXAM DATE/TIME: 04/15/2017 15:06 [facility] COMPARISON: No previous studies available for comparison. INDICATIONS : Pre-Op cardiac surgery. MEDICAL HISTORY : Hypertension. Migraine. Diabetes. Sarcodosis. SURGICAL HISTORY : Cholecystectomy.Appendectomy. Tonsillectomy.Cataract removal. Gastric bypass with reversal. Hysterect [place]. Bladder surgery. Bunion removal. Hip surgery. Bilateral knee replacement. ENCOUNTER: Initial ACUITY: 1 day PAIN SCORE: 0/10 LOCATION: Bilateral legs. TECHNIQUE: Venous ultrasound of the left and right leg was performed from the inguinal ligament to the proximal calf. Real-time, color Doppler and spectral tracing, compression and augmentation techniques were us ed. FINDINGS: RIGHT LEG: There is normal compressibility of the deep venous system from the inguinal region to the proximal ca lf. No echogenic clot is seen in the lumen of the common femoral, femoral, popliteal, and posterior tibial veins. There is a normal response of the venous system to proximal and distal augmentation an d respiration. LEFT LEG: There is normal compressibility of the deep venous system from the inguinal region to the proximal ca lf. No echogenic clot is seen in the lumen of the common femoral, femoral, popliteal, and posterior tibial veins. There is a normal response of the venous system to proximal and distal augmentation an d respiration. CONCLUSION: 1. No sonographic evidence for lower extremity DVT. Daniel Alatorre MD on April 15, 2017 at 16:20 Board Certified Radiologist. This report was verified electronically.
--- NOTE | 2017-04-15 16:23 | RADRPT ---
EXAM DATE/TIME: 04/15/2017 15:31 [facility] COMPARISON: No previous studies available for comparison. INDICATIONS : Pre-op cardiac surgery. MEDICAL HISTORY : Hypertension. Migraine. Diabetes. Sarcodosis. SURGICAL HISTORY : Tonsillectomy. Cholecystectomy. Appendectomy. Cataract removal. Gastric bypass with reversal. Hystere ctomy. Bladder surgery. Bunion removal. Hip surgery. Bilateral knee replacement. ENCOUNTER: Initial ACUITY: 1 day PAIN SCORE: 0/10 LOCATION: Bilateral legs. GREATER SAPHENOUS VEIN THIGH: PROXIMAL: Right 6 mm Left 6 mm MID: Right 4 mm Left 3 mm DISTAL: Right 2 mm Left 2 mm CALF: PROXIMAL: Right 1 mm Left 1 mm MID: Right Non-visualized Left Non-visualized DISTAL: Right Non-visualized Left Non-visualized FINDINGS: The venous system of the lower extremities are patent by color Doppler imaging. Measurements of the leg veins (in mm) are listed above. CONCLUSION: 1. Patent greater saphenous veins with measurements, as above. Daniel Alatorre MD on April 15, 2017 at 16:21 Board Certified Radiologist. This report was verified electronically.
[2017-04-15] MEDS: MONTELUKAST SODIUM 10 MG TAB PO SCH (21:16)
[2017-04-15] MEDS: GABAPENTIN 300 MG CAP PO SCH (21:16)
[2017-04-15] MEDS: SODIUM CHLORIDE 0.9% FLUSH 10 ML FLUSH IV FLUSH SCH (21:16)
[2017-04-15 21:43] LABS: APTT (PATIENT) 22.5 SEC (24.3-30.1)
[2017-04-15 22:09] LABS: BLOOD, URINE NEG (NEG); COMMENT (UR) CULT NOT INDICATED; CULTURE IF INDICATED CULT NOT INDICATED; GLUCOSE,URINE NEG (NEG); KETONE, URINE NEG (NEG); NITRITE,URINE NEG (NEG); PH, URINE 5.5 (5.0-8.5); SQUAMOUS EPITHELIAL CELL URINE <1 /hpf (0-5); URINE COLOR LIGHT-YELLOW (YELLW/STRAW)
[2017-04-16] VITALS (21 sets, daily range): BP systolic 143–147; BP diastolic 67–84; PULSE 74–95; RESP 18–20; TEMP 98–99.2; O2SAT 93–96
[2017-04-16] MEDS: NITROGLYCERIN 2% OINT 1 GM PACKET TOPICAL SCH ×4 (00:18→19:05)
[2017-04-16] MEDS: HYDROmorphone HCL PF 1 MG/ML VIAL IV PUSH PRN ×2 (03:10→08:44)
[2017-04-16 04:39] LABS: AUTOMATED NEUTROPHIL # 7.3 TH/MM3 (1.8-7.7); BASOPHIL % 0.3 % (0.0-2.0); EOSINOPHIL % 0.2 % (0.0-4.0); HEMO FLAGS DIFF FINAL; LYMPH % 24.2 % (9.0-44.0); LYMPHOCYTE # 2.5 TH/MM3 (1.0-4.8); MEAN CELL VOLUME 87.6 FL (80.0-100.0); MEAN CORPUSCULAR HEMOGLOBIN 30.2 PG (27.0-34.0); MEAN CORPUSCULAR HGB CONC 34.5 % (32.0-36.0); MONO % 5.9 % (0.0-8.0); NEUT % 69.4 % (16.0-70.0); PLATELET COUNT 228 TH/MM3 (150-450); RED BLOOD COUNT 3.43 MIL/MM3 (4.00-5.30); RED CELL DISTRIBUTION WIDTH 14.1 % (11.6-17.2); WHITE BLOOD COUNT 10.5 TH/MM3 (4.0-11.0)
[2017-04-16 04:47] LABS: APTT (PATIENT) 43.8 SEC (24.3-30.1)
[2017-04-16 04:58] LABS: BICARBONATE 27.8 MEQ/L (21.0-32.0); POTASSIUM 3.8 MEQ/L (3.5-5.1)
[2017-04-16 05:04] LABS: LDL CHOLESTEROL 110 MG/DL (0-99)
[2017-04-16] MEDS: diphenhydrAMINE HCL 50 MG/ML VIAL IV PUSH PRN ×2 (05:33→10:33)
[2017-04-16] MEDS: NITROGLYCERIN-D5W 50 MG/250 ML 250 ML IV PRN (07:33)
[2017-04-16] MEDS: HEPARIN-D5W 25,000 U/250 ML 250 ML IV PRN (07:36)
[2017-04-16] MEDS: INSULIN ASPART SUPPLEMENTAL SCALE SQ SCH ×4 (08:00→21:00)
[2017-04-16] MEDS: METOPROLOL SUCCINATE 25 MG EXTENDED RELEASE TAB PO SCH (08:46)
[2017-04-16] MEDS: amLODIPine BESYLATE 5 MG TAB PO SCH (08:46)
[2017-04-16] MEDS: SODIUM CHLORIDE 0.9% FLUSH 10 ML FLUSH IV FLUSH SCH (08:47)
[2017-04-16] MEDS: FLUoxetine HCL 20 MG CAP PO SCH (08:59)
[2017-04-16] MEDS: ATORVASTATIN 40 MG TAB PO SCH (08:59)
[2017-04-16] MEDS: PANTOPRAZOLE SODIUM 40 MG VIAL IV PUSH SCH (08:59)
[2017-04-16] MEDS: DOCUSATE SODIUM 50 MG/SENNA 8.6 MG TAB PO SCH ×2 (08:59→22:24)
--- NOTE | 2017-04-16 09:16 | PD.CARD.PN ---
Subjective Subjective Remarks Mild angina/ chest pressure this AM that resolved Objective Medications Current Medications Medications (Trade) Dose Ordered Sig/Cindy Route Start Time Stop Time Status Last Admin (Zofran Inj) 4 mg Q6H PRN IVP 04/15/17 07:15 04/15/17 13:57 (Ambien) 5 mg HS PRN PO 04/15/17 07:15 (Narcan Inj) 0.4 mg UNSCH PRN IV PUSH 04/15/17 07:15 (Eliana-Colace) 1 tab BID PO 04/15/17 09:00 04/16/17 08:59 (Milk Of Magnesia Liq) 30 ml Q12H PRN PO 04/15/17 07:15 (Senokot) 17.2 mg Q12H PRN PO 04/15/17 07:15 (Dulcolax Supp) 10 mg DAILY PRN RECTAL 04/15/17 07:15 (Lactulose Liq) 30 ml DAILY PRN PO 04/15/17 07:15 (D50w (Vial) Inj) 50 ml UNSCH PRN IV PUSH 04/15/17 07:15 (Glucagon Inj) 1 mg UNSCH PRN OTHER 04/15/17 07:15 (NovoLOG SUPPLEMENTAL SCALE) 1 ACHS SLIDING SCALE SQ 04/15/17 08:00 04/16/17 08:00 (Ativan) 0.5 mg Q8H PRN PO 04/15/17 07:30 (Catapres) 0.1 mg Q6H PRN PO 04/15/17 07:30 (Dilaudid Pf Inj) 0.5 mg Q4H PRN IV PUSH 04/15/17 07:30 04/16/17 08:44 (Nitroglycerin 2% Oint) 1 inch Q6HR TOPICAL 04/15/17 12:00 04/16/17 05:32 (Protonix Inj) 40 mg Q24H IV PUSH 04/15/17 08:00 04/16/17 08:59 (PROzac) 20 mg DAILY PO 04/15/17 09:00 04/16/17 08:59 (Neurontin) 900 mg HS PO 04/15/17 21:00 04/15/17 21:16 (Atarax) 25 mg HS PRN PO 04/15/17 07:30 (Singulair) 10 mg HS PO 04/15/17 21:00 04/15/17 21:16 (Januvia) 100 mg HS PO 04/15/17 21:00 04/15/17 21:15 (Ultram) 100 mg Q6H PRN PO 04/15/17 07:30 (Apresoline Inj) 20 mg Q4H PRN IV PUSH 04/15/17 07:30 (Toprol Xl) 25 mg DAILY PO 04/15/17 09:00 04/16/17 08:46 (Aspirin) 325 mg CRM MARKETING ANALYST PO 04/15/17 08:45 04/19/17 08:44 04/15/17 09:11 (Zofran Inj) 4 mg Q4H PRN IV PUSH 04/15/17 10:30 (Lipitor) 40 mg DAILY PO 04/16/17 09:00 04/16/17 08:59 Nitroglycerin/ Dextrose 250 ml @ 1.5 mls/hr TITRATE PRN IV 04/15/17 10:30 04/16/17 07:33 Heparin Sodium/ Dextrose 250 ml @ 10 mls/hr TITRATE PRN IV 04/15/17 10:45 04/16/17 07:36 (Norvasc) 5 mg DAILY PO 04/15/17 10:45 04/16/17 08:46 (Pill Splitter) 1 ea UNSCH PRN OTHER 04/15/17 12:15 (NS Flush) 2 ml BID IV FLUSH 04/15/17 21:00 04/15/17 21:16 (NS Flush) 2 ml UNSCH PRN IV FLUSH 04/15/17 14:00 Papaverine HCl 60 mg/Nitroglycerin 100 mcg/Diltiazem HCl 100 mg/Sodium Chloride 100 ml @ 0 mls/hr CRM MARKETING ANALYST IRRIGATION 04/15/17 14:00 04/22/17 13:59 Cefazolin Sodium 500 mg/Sodium Chloride 505 ml @ 0 mls/hr CRM MARKETING ANALYST IRRIGATION 04/15/17 15:00 04/22/17 14:59 Cefazolin Sodium/ Dextrose 50 ml @ 150 mls/hr CRM MARKETING ANALYST IV 04/15/17 14:00 04/22/17 13:59 (Lopressor) 12.5 mg CRM MARKETING ANALYST PO 04/15/17 14:00 04/22/17 13:59 (Hibiclens 4% Top Soln) 1 applic CRM MARKETING ANALYST TOPICAL 04/15/17 14:00 04/22/17 13:59 Insulin Human Regular 100 units/ Sodium Chloride 100 ml @ 0 mls/hr CRM MARKETING ANALYST PRN IV 04/15/17 14:00 04/22/17 13:59 (Benadryl Inj) 25 mg Q6H PRN IV PUSH 04/15/17 15:30 04/16/17 05:33 (Flu (Quadrivalent) Vaccine Inj) 0.5 ml ONCE ONCE IM 04/16/17 10:00 04/16/17 10:01 Vital Signs / I&O Vital Signs Date Time Temp Pulse Resp B/P (MAP) Pulse Ox O2 Delivery O2 Flow Rate FiO2 04/16/17 07:33 87 143/67 04/16/17 06:00 90 04/16/17 05:00 95 04/16/17 04:00 86 04/16/17 03:00 99.2 89 18 144/84 (104) 94 04/16/17 03:00 89 04/16/17 02:00 74 04/16/17 01:00 82 04/16/17 00:00 82 04/15/17 23:00 99.2 79 18 153/71 (98) 94 04/15/17 23:00 79 04/15/17 22:00 92 04/15/17 21:00 80 04/15/17 20:00 98.9 75 18 139/71 (93) 95 04/15/17 20:00 80 04/15/17 19:00 81 04/15/17 18:00 54 04/15/17 17:00 75 04/15/17 16:00 84 04/15/17 15:00 84 04/15/17 15:00 98.3 74 14 145/84 (104) 98 04/15/17 14:33 18 04/15/17 14:00 84 04/15/17 13:00 77 04/15/17 12:42 156/79 04/15/17 12:15 63 04/15/17 11:00 97.6 84 16 166/44 (84) 97 04/15/17 11:00 87 04/15/17 11:00 145/74 04/15/17 10:30 59 168/85 I/O 04/15/17 04/15/17 04/15/17 04/16/17 04/16/17 04/16/17 07:00 15:00 23:00 07:00 15:00 23:00 Intake Total 500 ml 240 ml Output Total 1000 ml Balance 500 ml -760 ml Intake Oral 500 ml 240 ml Output Urine Total 1000 ml # Voids 1 Physical Exam GENERAL: Obes, No acute distress. HEENT: Jugular venous pressure is normal. CHEST: Lungs clear to auscultation bilaterally. Unlabored respiratory effort. CARDIAC: Regular rate and rhythm with 1/6 KATHRYN. ABDOMEN: Soft, nontender, no hepatosplenomegaly. Bowel sounds present. EXTREMITIES: No clubbing, cyanosis, or edema. right groin OK Laboratory Laboratory Tests Test 04/15/17 14:03 04/15/17 20:10 04/15/17 21:58 04/16/17 03:59 Activated Partial Thromboplast Time 30.2 SEC 22.5 SEC 43.8 SEC Troponin I 1.02 NG/ML 1.76 NG/ML 3.01 NG/ML Urine Color LIGHT-YELLOW Urine Turbidity CLEAR Urine pH 5.5 Urine Specific [place] 1.014 Urine Protein NEG mg/dL Urine Glucose (UA) NEG mg/dL Urine Ketones NEG mg/dL Urine Occult Blood NEG Urine Nitrite NEG Urine Bilirubin NEG Urine Urobilinogen LESS THAN 2.0 MG/DL Urine Leukocyte Esterase NEG Urine Squamous Epithelial Cells <1 /hpf Urine Amorphous Sediment RARE Microscopic Urinalysis Comment CULT NOT INDICATED White Blood Count 10.5 TH/MM3 Red Blood Count 3.43 MIL/MM3 Hemoglobin 10.4 GM/DL Hematocrit 30.0 % Mean Corpuscular Volume 87.6 FL Mean Corpuscular Hemoglobin 30.2 PG Mean Corpuscular Hemoglobin Concent 34.5 % Red Cell Distribution Width 14.1 % Platelet Count 228 TH/MM3 Mean Platelet Volume 7.4 FL Neutrophils (%) (Auto) 69.4 % Lymphocytes (%) (Auto) 24.2 % Monocytes (%) (Auto) 5.9 % Eosinophils (%) (Auto) 0.2 % Basophils (%) (Auto) 0.3 % Neutrophils # (Auto) 7.3 TH/MM3 Lymphocytes # (Auto) 2.5 TH/MM3 Monocytes # (Auto) 0.6 TH/MM3 Eosinophils # (Auto) 0.0 TH/MM3 Basophils # (Auto) 0.0 TH/MM3 CBC Comment DIFF FINAL Differential Comment Blood Urea Nitrogen 11 MG/DL Creatinine 0.86 MG/DL Random Glucose 242 MG/DL Calcium Level 8.2 MG/DL Sodium Level 137 MEQ/L Potassium Level 3.8 MEQ/L Chloride Level 103 MEQ/L Carbon Dioxide Level 27.8 MEQ/L Anion Gap 6 MEQ/L Estimat Glomerular Filtration Rate 79 ML/MIN Triglycerides Level 70 MG/DL Cholesterol Level 196 MG/DL LDL Cholesterol 110 MG/DL HDL Cholesterol 72.0 MG/DL Cholesterol/HDL Ratio 2.72 RATIO Assessment and Plan Problem List: (1) 3-vessel coronary artery disease ICD Codes: I25.10 - Atherosclerotic heart disease of [place] coronary artery without angina pectoris (2) Non-STEMI (non-ST elevated myocardial infarction) ICD Codes: I21.4 - Non-ST elevation (NSTEMI) myocardial infarction Assessment and Plan Cont. heparin, ASA, antianginals. CABG this admit. I will be out of state after today/ my colleagues will cover Isaac Willson MD Apr 16, 2017 09:16
[2017-04-16 09:26] LABS: HEMOGLOBIN A1b 2.1 %; HEMOGLOBIN Ao 80.8 %; HEMOGLOBIN LA1C 2.9 %; HEMOGLOBIN P3 4.6 %
[2017-04-16] MEDS ORDERED: INFLUENZA VIRUS VACCINE (QUADRIVALENT) 0.5 ML SYR IM ONE (10:00)
[2017-04-16] MEDS ORDERED: ATROPINE SULFATE 1 MG/10 ML SYRINGE ONE (11:07)
[2017-04-16] MEDS ORDERED: EPINEPHrine HCL (1:10,000) 1 MG/10 ML SYRINGE ONE (11:07)
[2017-04-16 11:24] LABS: APTT (PATIENT) 50.9 SEC (24.3-30.1)
--- NOTE | 2017-04-16 12:08 | RADRPT ---
EXAM DATE/TIME: 04/16/2017 11:50 [facility] COMPARISON: CHEST SINGLE AP, April 15, 2017, 5:54. INDICATIONS : Preop CABG, history of sarcoidosis RADIATION DOSE: 8.24 CTDIvol (mGy) MEDICAL HISTORY : Hypertension. Cardiovascular disease Diabetes mellitus type 2. SURGICAL HISTORY : Appendectomy. Cholecystectomy.Hysterectomy. ENCOUNTER: Initial ACUITY: 1 day PAIN SCALE: 0/10 LOCATION: chest TECHNIQUE: Volumetric scanning of the chest was performed. Using automated exposure control and adjustment of t he mA and/or kV according to patient size, radiation dose was kept as low as reasonably achievable to obtain optimal diagnostic quality images. DICOM format image data is available electronically for r eview and comparison. Follow-up recommendations for detected pulmonary nodules are based at a minimum on nodule size and pa tient risk factors according to Fleischner Society Guidelines. FINDINGS: LUNGS: There is no consolidation or pneumothorax. No concerning pulmonary nodule is visualized. There is mi ld bilateral basilar atelectasis. PLEURAE: There is no pleural thickening or pleural effusion. MEDIASTINUM: The heart and great vessels demonstrate no acute abnormality. There is no mediastinal or hilar lymph adenopathy for noncontrast technique. Coronary artery calcifications.. AXILLAE: Within normal limits. No lymphadenopathy. MUSCULOSKELETAL: Within normal limits for patient age. CONCLUSION: Negative exam other than mild bibasilar atelectasis. Dann Mcclain MD on April 16, 2017 at 12:05 Board Certified Radiologist. This report was verified electronically.
[2017-04-16] MEDS: METOPROLOL TARTRATE 25 MG TAB PO SCH ×2 (13:54→22:24)
--- NOTE | 2017-04-16 14:50 | EKG ---
Date Performed: 04/15/2017 Time Performed: 22:59:34 PTAGE: 71 years EKG: Sinus rhythm Normal ECG PREVIOUS TRACING : 04/15/2017 05.50 Compared to prior tracing no significant change DOCTOR: Walt Hernández Interpretating Date/Time 04/16/2017 14:50:06
--- NOTE | 2017-04-16 14:51 | EKG ---
Date Performed: 04/16/2017 Time Performed: 05:24:28 PTAGE: 71 years EKG: Sinus rhythm Normal ECG PREVIOUS TRACING : 04/15/2017 22.59 Compared to prior tracing no significant change DOCTOR: Walt Hernández Interpretating Date/Time 04/16/2017 14:50:17
--- NOTE | 2017-04-16 15:01 | HHI.FPPN ---
Subjective Remarks OCCASIONAL CP AND WHEEZE C/O ANXIETY SEEN W D/W [employer]D SERVICES ARCHITECT REVIEWED Objective Vitals Vital Signs Date Time Temp Pulse Resp B/P (MAP) Pulse Ox O2 Delivery O2 Flow Rate FiO2 04/16/17 08:00 98.6 87 18 143/67 (92) 93 04/16/17 07:33 87 143/67 04/16/17 06:00 90 04/16/17 05:00 95 04/16/17 04:00 86 04/16/17 03:00 99.2 89 18 144/84 (104) 94 04/16/17 03:00 89 04/16/17 02:00 74 04/16/17 01:00 82 04/16/17 00:00 82 04/15/17 23:00 99.2 79 18 153/71 (98) 94 04/15/17 23:00 79 04/15/17 22:00 92 04/15/17 21:00 80 04/15/17 20:00 98.9 75 18 139/71 (93) 95 04/15/17 20:00 80 04/15/17 19:00 81 04/15/17 18:00 54 04/15/17 17:00 75 04/15/17 16:00 84 I/O 04/15/17 04/15/17 04/15/17 04/16/17 04/16/17 04/16/17 07:00 15:00 23:00 07:00 15:00 23:00 Intake Total 500 ml 240 ml Output Total 1000 ml Balance 500 ml -760 ml Intake Oral 500 ml 240 ml Output Urine Total 1000 ml # Voids 1 Result Diagram: 04/16/17 0359 04/16/17 0359 Objective Remarks GENERAL: SKIN: Warm and dry. HEAD: Atraumatic. Normocephalic. EYES: Pupils equal and round. No scleral icterus. No injection or drainage. ENT: No nasal bleeding or discharge. Mucous membranes pink and moist. NECK: Trachea midline. No JVD. CARDIOVASCULAR: Regular rate and rhythm. RESPIRATORY: No accessory muscle use. Clear to auscultation. Breath sounds equal bilaterally. GASTROINTESTINAL: Abdomen soft, non-tender, nondistended. Hepatic and splenic margins not palpable. MUSCULOSKELETAL: Extremities without clubbing, cyanosis, or edema. No obvious deformities. NEUROLOGICAL: Awake and alert. No obvious cranial nerve deficits. Motor grossly within normal limits. Five out of 5 muscle strength in the arms and legs. Normal speech. PSYCHIATRIC: Appropriate mood and affect; insight and judgment normal. Medications and IVs Current Medications Medications (Trade) Dose Ordered Sig/Cindy Route Start Time Stop Time Status Last Admin (Zofran Inj) 4 mg Q6H PRN IVP 04/15/17 07:15 04/15/17 13:57 (Ambien) 5 mg HS PRN PO 04/15/17 07:15 (Narcan Inj) 0.4 mg UNSCH PRN IV PUSH 04/15/17 07:15 (Eliana-Colace) 1 tab BID PO 04/15/17 09:00 04/16/17 08:59 (Milk Of Magnesia Liq) 30 ml Q12H PRN PO 04/15/17 07:15 (Senokot) 17.2 mg Q12H PRN PO 04/15/17 07:15 (Dulcolax Supp) 10 mg DAILY PRN RECTAL 04/15/17 07:15 (Lactulose Liq) 30 ml DAILY PRN PO 04/15/17 07:15 (D50w (Vial) Inj) 50 ml UNSCH PRN IV PUSH 04/15/17 07:15 (Glucagon Inj) 1 mg UNSCH PRN OTHER 04/15/17 07:15 (NovoLOG SUPPLEMENTAL SCALE) 1 ACHS SLIDING SCALE SQ 04/15/17 08:00 04/16/17 08:00 (Ativan) 0.5 mg Q8H PRN PO 04/15/17 07:30 (Catapres) 0.1 mg Q6H PRN PO 04/15/17 07:30 (Dilaudid Pf Inj) 0.5 mg Q4H PRN IV PUSH 04/15/17 07:30 04/16/17 08:44 (Nitroglycerin 2% Oint) 1 inch Q6HR TOPICAL 04/15/17 12:00 04/16/17 13:52 (Protonix Inj) 40 mg Q24H IV PUSH 04/15/17 08:00 04/16/17 08:59 (PROzac) 20 mg DAILY PO 04/15/17 09:00 04/16/17 08:59 (Neurontin) 900 mg HS PO 04/15/17 21:00 04/15/17 21:16 (Atarax) 25 mg HS PRN PO 04/15/17 07:30 (Singulair) 10 mg HS PO 04/15/17 21:00 04/15/17 21:16 (Januvia) 100 mg HS PO 04/15/17 21:00 04/15/17 21:15 (Ultram) 100 mg Q6H PRN PO 04/15/17 07:30 (Apresoline Inj) 20 mg Q4H PRN IV PUSH 04/15/17 07:30 (Aspirin) 325 mg CONSTRUCTION GRIP PO 04/15/17 08:45 04/19/17 08:44 04/15/17 09:11 (Zofran Inj) 4 mg Q4H PRN IV PUSH 04/15/17 10:30 (Lipitor) 40 mg DAILY PO 04/16/17 09:00 04/16/17 08:59 Nitroglycerin/ Dextrose 250 ml @ 1.5 mls/hr TITRATE PRN IV 04/15/17 10:30 04/16/17 07:33 Heparin Sodium/ Dextrose 250 ml @ 10 mls/hr TITRATE PRN IV 04/15/17 10:45 04/16/17 07:36 (Norvasc) 5 mg DAILY PO 04/15/17 10:45 04/16/17 08:46 (Pill Splitter) 1 ea UNSCH PRN OTHER 04/15/17 12:15 (NS Flush) 2 ml BID IV FLUSH 04/15/17 21:00 04/15/17 21:16 (NS Flush) 2 ml UNSCH PRN IV FLUSH 04/15/17 14:00 Papaverine HCl 60 mg/Nitroglycerin 100 mcg/Diltiazem HCl 100 mg/Sodium Chloride 100 ml @ 0 mls/hr CONSTRUCTION GRIP IRRIGATION 04/15/17 14:00 04/22/17 13:59 Cefazolin Sodium 500 mg/Sodium Chloride 505 ml @ 0 mls/hr CONSTRUCTION GRIP IRRIGATION 04/15/17 15:00 04/22/17 14:59 Cefazolin Sodium/ Dextrose 50 ml @ 150 mls/hr CONSTRUCTION GRIP IV 04/15/17 14:00 04/22/17 13:59 (Lopressor) 12.5 mg CONSTRUCTION GRIP PO 04/15/17 14:00 04/22/17 13:59 (Hibiclens 4% Top Soln) 1 applic CONSTRUCTION GRIP TOPICAL 04/15/17 14:00 04/22/17 13:59 Insulin Human Regular 100 units/ Sodium Chloride 100 ml @ 0 mls/hr CONSTRUCTION GRIP PRN IV 04/15/17 14:00 04/22/17 13:59 (Benadryl Inj) 25 mg Q6H PRN IV PUSH 04/15/17 15:30 04/16/17 10:33 (Lopressor) 25 mg Q12HR PO 04/16/17 10:00 04/16/17 13:54 A/P Assessment and Plan ASSESSMENT AND PLAN: Non-ST elevation [place]- Cont. heparin, ASA, antianginals. CABG this admit. Chest pain Diabetes- Sliding scale insulin Urgent hypertension- BB AND PRN ANTIHTN Headache Sarcoidosis Asthma DVT PROPHYLAXIS: SCD, TEDS, HEPARIN GTT GI PROPHYLAXIS: IV PROTONIX Clint Bustos MD Apr 16, 2017 15:01
--- NOTE | 2017-04-16 17:04 | PD.CAR.PN ---
CVT Progress Note Subjective/Hospital Course: 71/ female admitted with NSTEMI, underwent cardiac cath by Dr Willson 04/15/17, found to have EF 65% 3 vessel CAD LAD, Ramus, RCA , eval for CABG PMH: sarcoidosis lung eyes, skin ( CT chest no concerning pulmonary nodules noted morbid obesity with previous stomach stapling with reversal / dumping syndrome, degenerative arthritis, DM Type II HTN brachial cyst plexus pt now scheduled for surgery in am remains heparin and NTG gtt Objective: GENERAL: SKIN: Warm and dry. HEAD: Normocephalic. EYES: No scleral icterus. No injection or drainage. NECK: Supple, trachea midline. No JVD or lymphadenopathy. CARDIOVASCULAR: Regular rate and rhythm without murmurs, gallops, or rubs. RESPIRATORY: Breath sounds equal bilaterally. No accessory muscle use. GASTROINTESTINAL: Abdomen soft, non-tender, nondistended. MUSCULOSKELETAL: No cyanosis, or edema. BACK: Nontender without obvious deformity. No CVA tenderness. Vital Signs Date Time Temp Pulse Resp B/P (MAP) Pulse Ox O2 Delivery O2 Flow Rate FiO2 04/16/17 08:00 98.6 87 18 143/67 (92) 93 04/16/17 07:38 18 04/16/17 07:33 87 143/67 04/16/17 06:00 90 04/16/17 05:00 95 04/16/17 04:00 86 04/16/17 03:00 99.2 89 18 144/84 (104) 94 04/16/17 03:00 89 04/16/17 02:00 74 04/16/17 01:00 82 04/16/17 00:00 82 04/15/17 23:00 99.2 79 18 153/71 (98) 94 04/15/17 23:00 79 04/15/17 22:00 92 04/15/17 21:00 80 04/15/17 20:00 98.9 75 18 139/71 (93) 95 04/15/17 20:00 80 04/15/17 19:00 81 04/15/17 18:00 54 04/15/17 17:00 75 Labs: Laboratory Tests Test 04/16/17 10:43 Activated Partial Thromboplast Time 50.9 SEC (24.3-30.1) Result Diagram: 04/16/17 0359 04/16/17 0359 (1) 3-vessel coronary artery disease (2) Non-STEMI (non-ST elevated myocardial infarction) Plan: for surgery on am HBG 10.3, will need iron work up Isi Oliveira Apr 16, 2017 17:04
[2017-04-16] MEDS: GABAPENTIN 300 MG CAP PO SCH (22:23)
[2017-04-16] MEDS: MONTELUKAST SODIUM 10 MG TAB PO SCH (22:23)
[2017-04-17] VITALS (15 sets, daily range): BP systolic 93–169; BP diastolic 37–80; PULSE 63–93; RESP 10–20; TEMP 98.8–99.8; O2SAT 92–99
[2017-04-17] MEDS: diphenhydrAMINE HCL 50 MG/ML VIAL IV PUSH PRN (00:25)
[2017-04-17] MEDS: NITROGLYCERIN 2% OINT 1 GM PACKET TOPICAL SCH (00:25)
[2017-04-17 06:18] LABS: AUTOMATED NEUTROPHIL # 6.8 TH/MM3 (1.8-7.7); BASOPHIL % 0.4 % (0.0-2.0); EOSINOPHIL # 0.1 TH/MM3 (0-0.4); EOSINOPHIL % 0.7 % (0.0-4.0); HEMATOCRIT 29.9 % (35.0-46.0); HEMO FLAGS DIFF FINAL; LYMPH % 24.5 % (9.0-44.0); LYMPHOCYTE # 2.5 TH/MM3 (1.0-4.8); MEAN CELL VOLUME 88.7 FL (80.0-100.0); MEAN CORPUSCULAR HEMOGLOBIN 29.4 PG (27.0-34.0); MEAN CORPUSCULAR HGB CONC 33.2 % (32.0-36.0); MONO % 8.4 % (0.0-8.0); PLATELET COUNT 230 TH/MM3 (150-450); RED BLOOD COUNT 3.37 MIL/MM3 (4.00-5.30); RED CELL DISTRIBUTION WIDTH 14.5 % (11.6-17.2); WHITE BLOOD COUNT 10.3 TH/MM3 (4.0-11.0)
[2017-04-17 06:38] LABS: BICARBONATE 27.2 MEQ/L (21.0-32.0); POTASSIUM 3.6 MEQ/L (3.5-5.1)
[2017-04-17] MEDS: METOPROLOL TARTRATE 25 MG TAB PO SCH ×2 (06:45→22:06)
[2017-04-17] MEDS ORDERED: HEPARIN SODIUM - SQ 10,000 UNITS/ML VIAL ONE (06:47)
[2017-04-17] MEDS ORDERED: VANCOMYCIN HCL 1000 MG VIAL ONE (06:47)
[2017-04-17] MEDS ORDERED: ceFAZolin 2 GM PREMIX 50 ML ONE (06:48)
[2017-04-17] MEDS ORDERED: ceFAZolin 1 GM ADDVANTAGE VIAL IV ONE (07:52)
[2017-04-17] MEDS ORDERED: NORMOSOL R INJ 2,000 ML IV ONE (07:52)
[2017-04-17] MEDS ORDERED: SODIUM CHLOR 0.9% (EXCEL) INJ 250 ML IV ONE (07:52)
[2017-04-17] MEDS ORDERED: LACTATED RINGER'S 1000 ML INJ 1,000 ML IV ONE (07:52)
[2017-04-17] MEDS ORDERED: fentaNYL CITRATE 1000 MCG/20 ML VIAL IV ONE (07:52)
[2017-04-17] MEDS ORDERED: MIDAZOLAM HCL 5 MG/5 ML VIAL IV ONE (07:52)
[2017-04-17] MEDS ORDERED: SODIUM CHLORIDE 0.9% INJ 200 ML IV ONE (07:52)
[2017-04-17] MEDS ORDERED: VECURONIUM BROMIDE 20 MG VIAL IV ONE (07:52)
[2017-04-17] MEDS: PANTOPRAZOLE SODIUM 40 MG VIAL IV PUSH SCH (08:00)
[2017-04-17] MEDS ORDERED: BUPIVACAINE LIPOSO PF 1.3% INJ 20 ML, DEXAMETHASONE INJ 4 MG in SODIUM CHLORIDE 0.9% IN... P-ARTICULR SCH (08:00)
--- NOTE | 2017-04-17 08:39 | RSPPFT ---
DATE OF PROCEDURE: 04/15/17 COMMENTS: The forced vital capacity, FEV1 both show marked reductions. The FEV1/FVC ratio is normal. The FEF 25-75 is markedly reduced. IMPRESSION: This is consistent with severe restrictive lung disease. There is also a small airways obstructive component. A post-bronchodilator study would be helpful.
[2017-04-17] MEDS ORDERED: DEXMEDETOMIDINE HCL 200 MCG/2 ML VIAL ONE (08:42)
[2017-04-17] MEDS: FLUoxetine HCL 20 MG CAP PO SCH (09:00)
[2017-04-17] MEDS: ATORVASTATIN 40 MG TAB PO SCH (09:00)
[2017-04-17] MEDS: amLODIPine BESYLATE 5 MG TAB PO SCH (09:00)
[2017-04-17] MEDS ORDERED: DEXTROSE 50% IN WATER 50 ML SYRINGE ONE (09:09)
[2017-04-17] MEDS ORDERED: POTASSIUM CHLOR 20 MEQ PREMIX 100 ML ONE ×2 (09:09→10:35)
--- NOTE | 2017-04-17 09:23 | HHI.FPPN ---
Objective Vitals Vital Signs Date Time Temp Pulse Resp B/P (MAP) Pulse Ox O2 Delivery O2 Flow Rate FiO2 04/17/17 05:00 88 04/17/17 04:00 88 04/17/17 03:00 90 04/17/17 02:00 88 04/17/17 01:00 88 04/17/17 00:00 99.8 93 18 138/66 (90) 96 04/17/17 00:00 88 04/16/17 23:00 82 04/16/17 22:00 84 04/16/17 21:00 80 04/16/17 20:00 99.0 80 20 144/75 (98) 96 04/16/17 20:00 88 04/16/17 17:00 91 04/16/17 16:00 91 04/16/17 15:00 88 04/16/17 14:00 88 04/16/17 13:00 92 04/16/17 12:00 92 04/16/17 12:00 98.0 87 18 147/73 (97) 93 04/16/17 11:00 92 04/16/17 10:00 92 I/O 04/16/17 04/16/17 04/16/17 04/17/17 04/17/17 04/17/17 07:00 15:00 23:00 07:00 15:00 23:00 Intake Total 240 ml 380 ml Output Total 1000 ml Balance -760 ml 380 ml Intake Oral 240 ml 380 ml Output Urine Total 1000 ml # Voids 5 Result Diagram: 04/17/17 0545 04/17/17 0545 Medications and IVs Current Medications Medications (Trade) Dose Ordered Sig/Cindy Route Start Time Stop Time Status Last Admin (Zofran Inj) 4 mg Q6H PRN IVP 04/15/17 07:15 04/15/17 13:57 (Ambien) 5 mg HS PRN PO 04/15/17 07:15 (Narcan Inj) 0.4 mg UNSCH PRN IV PUSH 04/15/17 07:15 (Eliana-Colace) 1 tab BID PO 04/15/17 09:00 04/16/17 22:24 (Milk Of Magnesia Liq) 30 ml Q12H PRN PO 04/15/17 07:15 (Senokot) 17.2 mg Q12H PRN PO 04/15/17 07:15 (Dulcolax Supp) 10 mg DAILY PRN RECTAL 04/15/17 07:15 (Lactulose Liq) 30 ml DAILY PRN PO 04/15/17 07:15 (D50w (Vial) Inj) 50 ml UNSCH PRN IV PUSH 04/15/17 07:15 (Glucagon Inj) 1 mg UNSCH PRN OTHER 04/15/17 07:15 (NovoLOG SUPPLEMENTAL SCALE) 1 ACHS SLIDING SCALE SQ 04/15/17 08:00 04/16/17 17:00 (Ativan) 0.5 mg Q8H PRN PO 04/15/17 07:30 (Catapres) 0.1 mg Q6H PRN PO 04/15/17 07:30 (Dilaudid Pf Inj) 0.5 mg Q4H PRN IV PUSH 04/15/17 07:30 04/16/17 08:44 (Nitroglycerin 2% Oint) 1 inch Q6HR TOPICAL 04/15/17 12:00 04/17/17 00:25 (Protonix Inj) 40 mg Q24H IV PUSH 04/15/17 08:00 04/16/17 08:59 (PROzac) 20 mg DAILY PO 04/15/17 09:00 04/16/17 08:59 (Neurontin) 900 mg HS PO 04/15/17 21:00 04/16/17 22:23 (Atarax) 25 mg HS PRN PO 04/15/17 07:30 (Singulair) 10 mg HS PO 04/15/17 21:00 04/16/17 22:23 (Januvia) 100 mg HS PO 04/15/17 21:00 04/16/17 22:22 (Ultram) 100 mg Q6H PRN PO 04/15/17 07:30 (Apresoline Inj) 20 mg Q4H PRN IV PUSH 04/15/17 07:30 (Aspirin) 325 mg [employer]REAR[employer] SALES ASSOCIATE PO 04/15/17 08:45 04/19/17 08:44 04/15/17 09:11 (Zofran Inj) 4 mg Q4H PRN IV PUSH 04/15/17 10:30 (Lipitor) 40 mg DAILY PO 04/16/17 09:00 04/16/17 08:59 Nitroglycerin/ Dextrose 250 ml @ 1.5 mls/hr TITRATE PRN IV 04/15/17 10:30 04/16/17 07:33 Heparin Sodium/ Dextrose 250 ml @ 10 mls/hr TITRATE PRN IV 04/15/17 10:45 04/16/17 07:36 (Norvasc) 5 mg DAILY PO 04/15/17 10:45 04/16/17 08:46 (Pill Splitter) 1 ea UNSCH PRN OTHER 04/15/17 12:15 (NS Flush) 2 ml BID IV FLUSH 04/15/17 21:00 04/15/17 21:16 (NS Flush) 2 ml UNSCH PRN IV FLUSH 04/15/17 14:00 Papaverine HCl 60 mg/Nitroglycerin 100 mcg/Diltiazem HCl 100 mg/Sodium Chloride 100 ml @ 0 mls/hr [employer] SAL[employer]OCIATE IRRIGATION 04/15/17 14:00 04/22/17 13:59 Cefazolin Sodium 500 mg/Sodium Chloride 505 ml @ 0 mls/hr [employer]ATE IRRIGATION 04/15/17 15:00 04/22/17 14:59 Cefazolin Sodium/ Dextrose 50 ml @ 150 mls/hr [employer]IATE IV 04/15/17 14:00 04/22/17 13:59 04/17/17 07:35 (Lopressor) 12.5 mg [employer]IATE PO 04/15/17 14:00 04/22/17 13:59 (Hibiclens 4% Top Soln) 1 applic [employer] SALES ASSOCIATE TOPICAL 04/15/17 14:00 04/22/17 13:59 Insulin Human Regular 100 units/ Sodium Chloride 100 ml @ 0 mls/hr [employer] SALES ASSOCIATE PRN IV 04/15/17 14:00 04/22/17 13:59 (Benadryl Inj) 25 mg Q6H PRN IV PUSH 04/15/17 15:30 04/17/17 00:25 (Lopressor) 25 mg Q12HR PO 04/16/17 10:00 04/17/17 06:45 Bupivacaine Liposome 20 ml/ Dexamethasone Sodium Phosphate 4 mg/Sodium Chloride 41 ml @ 82 mls/hr ONCE P-ARTICULR 04/17/17 08:00 04/18/17 07:59 A/P Assessment and Plan ASSESSMENT AND PLAN: Non-ST elevation CO- Cont. heparin, ASA, antianginals. IN OR NOW FOR CABG. Chest pain Diabetes- Sliding scale insulin Urgent hypertension- BB AND PRN ANTIHTN Headache Sarcoidosis Asthma DVT PROPHYLAXIS: SCD, TEDS, HEPARIN GTT GI PROPHYLAXIS: IV PROTONIX PT HAS BEEN OBS. SHE REQUIRES FURTHER INPT STAY OUTLINED ABOVE. EXPECT 2-3 MORE DAYS INPATIENT STAY. THEN DC HOME W [facility]. Clint Bustos MD Apr 17, 2017 09:23
[2017-04-17] MEDS ORDERED: DOBUTamine PREMIX DRIP 250 ML IV SCH (11:33)
[2017-04-17] MEDS ORDERED: LACTATED RINGER'S 1000 ML INJ 500 ML IV PRN (11:33)
[2017-04-17] MEDS ORDERED: SUGAMMADEX SODIUM 200 MG/2 ML VIAL IV PUSH ONE ×2 (11:43)
[2017-04-17] MEDS ORDERED: ACETAMINOPHEN 325 MG TAB PO PRN (11:45)
[2017-04-17] MEDS ORDERED: DEXTROSE 50% IN WATER 50 ML VIAL(D50) IV PUSH PRN (11:45)
[2017-04-17] MEDS ORDERED: DEXMEDETOMIDINE INJ 200 MCG in SODIUM CHLORIDE 0.9% INJ 50 ML IV PRN (11:45)
[2017-04-17] MEDS ORDERED: ONDANSETRON HCL 4 MG/2 ML VIAL IV PUSH PRN (11:45)
[2017-04-17] MEDS ORDERED: RESP: ALBUTEROL 2.5 MG/IPRATROPIUM 0.5 MG NEB (PRN) NEB (11:45)
[2017-04-17] MEDS ORDERED: PHENYLEPHRINE INJ 40 MG in DEXTROSE 5% IN WATE 500 ML INJ 496 ML IV PRN ×2 (11:45)
[2017-04-17] MEDS ORDERED: ACETAMINOPHEN 1000 MG/100 ML 100 ML IV SCH (11:45)
[2017-04-17] MEDS ORDERED: ACETAMINOPHEN 650 MG SUPP RECTAL PRN (11:45)
[2017-04-17] MEDS ORDERED: POTASSIUM CHLOR 20 MEQ PREMIX 100 ML IV PRN ×3 (11:45)
[2017-04-17] MEDS ORDERED: POTASSIUM CHLORIDE 20 MEQ CONTROLLED RELEASE TAB PO PRN ×2 (11:45)
[2017-04-17] MEDS ORDERED: METOPROLOL TARTRATE 5 MG/5 ML VIAL IV PUSH PRN (11:45)
[2017-04-17] MEDS ORDERED: SODIUM CHLORIDE 0.9% FLUSH 10 ML FLUSH IV FLUSH PRN (11:45)
[2017-04-17] MEDS ORDERED: ACETAMINOPHEN/HYDROcodone 325 MG/5 MG TAB PO PRN (11:45)
[2017-04-17] MEDS ORDERED: NITROGLYCERIN-D5W 50 MG/250 ML 250 ML IV PRN (11:45)
[2017-04-17] MEDS ORDERED: MORPHINE SULFATE 4 MG/ML INJ IV PUSH PRN (11:45)
[2017-04-17] MEDS ORDERED: DOPamine INJ PREMIX 500 ML IV PRN (11:45)
[2017-04-17] MEDS ORDERED: Post-op Orders (for Pharmacy) MISC OTHER ONE (11:45)
[2017-04-17] MEDS ORDERED: MEPERIDINE HCL 25 MG/ML VIAL IV PUSH PRN (11:45)
[2017-04-17] MEDS ORDERED: CALCIUM CHLORIDE 10% 1 GRAM/10 ML VIAL IV PUSH PRN (11:45)
[2017-04-17] MEDS ORDERED: SODIUM BICARBONATE 8.4% SOLN 50 MEQ/50 ML VIAL IV PUSH PRN ×2 (11:45)
[2017-04-17] MEDS ORDERED: RESP: RACEPINEPHRINE 2.25% 0.5 ML NEB NEB PRN (11:45)
[2017-04-17] MEDS ORDERED: ALBUMIN HUMAN 5% 12.5 GM/250 ML BOTTLE IV PRN (11:45)
[2017-04-17] MEDS: SODIUM CHLORIDE 0.9% FLUSH 10 ML FLUSH IV FLUSH SCH ×2 (11:45→22:07)
[2017-04-17] MEDS ORDERED: KETOROLAC TROMETHAMINE 30 MG/ML (IVP) VIAL IV PUSH PRN (11:45)
[2017-04-17] MEDS ORDERED: hydrALAZINE HCL 20 MG/ML VIAL IV PUSH PRN (11:45)
[2017-04-17] MEDS ORDERED: MAGNESIUM SULFATE INJ 2 GM in SODIUM CHLORIDE 0.9% INJ 100 ML IV PRN ×4 (11:45)
--- NOTE | 2017-04-17 11:48 | PD.OP ---
cc: David Paulino MD; Isaac Willson MD Operative Report Date of Surgery: Apr 17, 2017 Preoperative Diagnosis: Postoperative Diagnosis: Procedure: 1. Urgent Off-pump Coronary Artery Bypass Grafting x 3 with Left Internal Mammary Artery (HARRIS) to the Left Anterior Descending (LAD), reverse saphenous vein graft to the ramus marginalis (RM), reverse saphenous vein graft to the Right Coronary Artery (RCA) 2. Right Leg Endoscopic Vein [place] 3. Intraoperative Vein Mapping 4. Multi-Level Intercostal Nerve Block. Surgeon: David Paulino Job Checker(s): Teja Guillen Operation and Findings: PREPROCEDURE DIAGNOSES 1. Severe Multi-Vessel Coronary Artery Disease. 2. Sarcoidosis 3. Acute Myocardial Infarction (NSTEMI) POSTPROCEDURE DIAGNOSES Same SURGICAL PROCEDURE 1. Urgent Off-pump Coronary Artery Bypass Grafting x 3 with Left Internal Mammary Artery (HARRIS) to the Left Anterior Descending (LAD), reverse saphenous vein graft to the ramus marginalis (RM), reverse saphenous vein graft to the Right Coronary Artery (RCA) 2. Right Leg Endoscopic Vein [place] 3. Intraoperative Vein Mapping 4. Multi-Level Intercostal Nerve Block. SURGEON David Paulino MD TRAPPER ANIMAL ANI Lombardo ANESTHESIA General endotracheal AIR BRAKE OPERATOR RAVINDER Tamez MD PREPARATION ChloraPrep. COUNTS Needle, sponge, and instrument counts were correct. DRAINS Two 32-Syriac mediastinal tubes. COMPLICATIONS None. INDICATIONS FOR PROCEDURE The patient is a 71-year-old presenting with chest pain and severe multi- vessel coronary artery disease. She is being brought to the operating room for surgical revascularization therapy. PROCEDURE Patient was brought to the operating room and placed supine on the OR table. Following the induction of adequate general endotracheal anesthesia and placement of appropriate monitoring devices, intraoperative vein mapping was performed which revealed suitable-caliber conduit in both legs. The patient was then prepped and draped in standard sterile fashion. Next, 2500 units of intravenous heparin was given. The right greater saphenous vein was harvested endoscopically. This appeared to be a useable-caliber conduit. Simultaneously, a median sternotomy was performed and the left internal mammary artery dissected free off the posterior sternal table. The patient was systemically heparinized and anticoagulation monitored by serial ACT measurements. The internal mammary artery had good pulsatile flow in it and was a decent-caliber conduit. The pericardium was then divided in the midline, the cradle created and targets analyzed. At this point, all anastomoses were performed in a beating -heart fashion using the Maquet stabilizing system. The left internal mammary artery was anastomosed to the distal LAD (2 mm) in an end-to-side fashion using 7-0 Prolene. The next segment was anastomosed to the ramus (1.75 mm) in an end- to-side fashion using a running 7-0 Prolene. The final segment was anastomosed to the RCA (3 mm) in an end-to-side fashion using 7-0 Prolene. The proximal anastomoses were then constructed to the ascending aorta in a running manner using 6-0 Prolene. All anastomotic sites were inspected and appeared to be hemostatic and patent. Protamine solution was given. Strict hemostasis was assured. The closure was undertaken. 2 chest tubes were placed. The pericardium was reapproximated in the midline. Bilateral multi-level intercostal nerve block was performed using Exparel solution. The sternum was approximated using sternal wires. The muscular and fascial layer were then closed in 3 layers. The endoscopic vein harvest site was closed in 2 layers. The patient tolerated the procedure well and was transferred to CVICU in stable condition. David Paulino MD Apr 17, 2017 11:48
--- NOTE | 2017-04-17 14:17 | RADRPT ---
EXAM DATE/TIME: 04/17/2017 12:46 [facility] COMPARISON: CHEST SINGLE AP, April 15, 2017, 5:54. INDICATIONS : Post-op CABG. MEDICAL HISTORY : None. SURGICAL HISTORY : None. ENCOUNTER: Initial ACUITY: 1 day PAIN SCORE: Non-responsive. LOCATION: chest FINDINGS: Endotracheal tube is present with tip 5 cm above the asher. A left thoracostomy tube is present. Mid line chest tube is present. A left subclavian central line is present good position. Sternotomy wires are noted. There is no evidence of pneumothorax or effusion. Minimal left midlung and basilar atelec tasis is noted. Cardiac contours are satisfactory. CONCLUSION: Satisfactory postop appearance Mason Moody MD on April 17, 2017 at 14:12 Board Certified Radiologist. This report was verified electronically.
[2017-04-17] MEDS: ceFAZolin 2 GM PREMIX 50 ML IV SCH ×2 (16:00→23:55)
[2017-04-17] MEDS ORDERED: INSULIN REGULAR (IV INFUSION) 100 UNITS in SODIUM CHLORIDE 0.9% INJ 99 ML IV PRN (16:00)
[2017-04-17] MEDS ORDERED: CALCIUM CHLORIDE INJ 1 GM in SODIUM CHLORIDE 0.9% INJ 100 ML IV PRN (16:00)
[2017-04-17] MEDS: HYDROmorphone HCL PF 1 MG/ML VIAL IV PUSH PRN ×2 (16:01→22:29)
[2017-04-17] MEDS: CLEVIDIPINE INJ 50 ML IV PRN ×2 (16:02→23:55)
[2017-04-17] MEDS: RESP: ALBUTEROL 2.5 MG/IPRATROPIUM 0.5 MG NEB (SCH) NEB ×2 (17:38→22:12)
[2017-04-17] MEDS: AMIODARONE 200 MG TAB PO SCH (22:06)
[2017-04-17] MEDS: DOCUSATE SODIUM 50 MG/SENNA 8.6 MG TAB PO SCH (22:06)
[2017-04-17] MEDS: GABAPENTIN 300 MG CAP PO SCH (22:06)
[2017-04-17] MEDS: MONTELUKAST SODIUM 10 MG TAB PO SCH (22:30)
[2017-04-18] VITALS (19 sets, daily range): BP systolic 88–152; BP diastolic 49–87; PULSE 68–92; RESP 18–22; TEMP 98.2–99.5; O2SAT 96–99
[2017-04-18] MEDS: HYDROmorphone HCL PF 1 MG/ML VIAL IV PUSH PRN ×3 (04:25→17:36)
[2017-04-18] MEDS: RESP: ALBUTEROL 2.5 MG/IPRATROPIUM 0.5 MG NEB (SCH) NEB ×2 (04:43→09:18)
[2017-04-18] MEDS: PANTOPRAZOLE SOD 40 MG DELAYED RELEASE TAB PO SCH (05:05)
--- NOTE | 2017-04-18 05:19 | RADRPT ---
EXAM DATE/TIME: 04/18/2017 04:33 [facility] COMPARISON: CHEST SINGLE AP, April 17, 2017, 12:46. INDICATIONS : Shortness of breath, possible pulmonary disease. MEDICAL HISTORY : Hypertension. Diabetes mellitus type II. SURGICAL HISTORY : Cholecystectomy. Appendectomy. Hysterectomy. CABG Bilateral knee arthroplasty ENCOUNTER: Subsequent ACUITY: 3 days PAIN SCORE: Non-responsive. LOCATION: Bilateral chest FINDINGS: A single portable frontal view of the chest shows interval development of consolidation involving the left lower lobe. 2 thoracostomy tubes one of which is sub-xiphoid nature and one on the left as well as a left subclavian central line are unchanged. No pneumothorax. Heart is mildly enlarged but stabl e. Median sternotomy wires. CONCLUSION: New left lower lobe infiltrate. No pneumothorax. Dann Madison Jr., MD on April 18, 2017 at 5:17 Board Certified Radiologist. This report was verified electronically.
[2017-04-18 05:32] LABS: HEMATOCRIT 27.7 % (35.0-46.0); MEAN CELL VOLUME 89.1 FL (80.0-100.0); MEAN CORPUSCULAR HEMOGLOBIN 29.5 PG (27.0-34.0); MEAN CORPUSCULAR HGB CONC 33.1 % (32.0-36.0); PLATELET COUNT 231 TH/MM3 (150-450); RED BLOOD COUNT 3.11 MIL/MM3 (4.00-5.30); RED CELL DISTRIBUTION WIDTH 14.3 % (11.6-17.2); REVIEW FLAG FINAL; WHITE BLOOD COUNT 15.6 TH/MM3 (4.0-11.0)
[2017-04-18 05:45] LABS: BICARBONATE 24.8 MEQ/L (21.0-32.0); MAGNESIUM 2.1 MG/DL (1.5-2.5); POTASSIUM 3.8 MEQ/L (3.5-5.1)
[2017-04-18] MEDS: PANTOPRAZOLE SODIUM 40 MG VIAL IV PUSH SCH (08:00)
[2017-04-18] MEDS: ceFAZolin 2 GM PREMIX 50 ML IV SCH ×2 (08:21→17:36)
[2017-04-18] MEDS: amLODIPine BESYLATE 5 MG TAB PO SCH (09:00)
[2017-04-18] MEDS ORDERED: ASPIRIN 81 MG CHEW TAB PO SCH (09:00)
--- NOTE | 2017-04-18 09:00 | PD.CAR.PN ---
CVT Progress Note Subjective/Hospital Course: 71/ female admitted with NSTEMI, underwent cardiac cath by Dr Willson 04/15/17, found to have EF 65% 3 vessel CAD LAD, Ramus, RCA , eval for CABG PMH: sarcoidosis lung eyes, skin ( CT chest no concerning pulmonary nodules noted morbid obesity with previous stomach stapling with reversal / dumping syndrome, degenerative arthritis, DM Type II HTN brachial cyst plexus pt now scheduled for surgery in am remains heparin and NTG gtt 04/17 Procedure 1. Urgent Off-pump Coronary Artery Bypass Grafting x 3 with Left Internal Mammary Artery (HARRIS) to the Left Anterior Descending (LAD), reverse saphenous vein graft to the ramus marginalis (RM), reverse saphenous vein graft to the Right Coronary Artery (RCA) 2. Right Leg Endoscopic Vein [place] 3. Intraoperative Vein Mapping 4. Multi-Level Intercostal Nerve Block. 04/18 Doing well. Extubated and tolerating Post-operative confusion improving. Very appropriate with no focal deficits Transfer CPCU Maintain CT Gentle diuresis Objective: Vital Signs Date Time Temp Pulse Resp B/P (MAP) Pulse Ox O2 Delivery O2 Flow Rate FiO2 04/18/17 07:00 99.2 73 18 115/58 (77) 99 104/60 (75) 04/18/17 07:00 73 04/18/17 06:00 74 101/56 04/18/17 04:45 20 04/18/17 04:00 99.5 89 22 152/56 (88) 99 134/53 (80) 04/18/17 03:30 69 04/18/17 00:00 99.5 89 22 144/77 (99) 99 149/87 (107) 04/18/17 00:00 90 04/17/17 23:55 89 162/64 04/17/17 22:13 94 Nasal Cannula 5.00 04/17/17 20:00 99.8 75 20 140/80 (100) 99 169/62 (97) 04/17/17 20:00 74 04/17/17 17:00 92 Simple Mask 10.00 04/17/17 16:15 98 Nasal Cannula 4 04/17/17 16:15 95 Nasal Cannula 6.00 04/17/17 16:02 61 150/79 04/17/17 15:00 68 04/17/17 15:00 98.9 71 13 124/65 (84) 99 133/49 (77) 04/17/17 13:30 40 04/17/17 13:25 99 40 04/17/17 13:00 63 04/17/17 12:15 50 04/17/17 12:15 98.8 93 10 93/54 (67) 99 95/37 (56) 04/17/17 12:10 98 50 Labs: Laboratory Tests Test 04/18/17 04:10 White Blood Count 15.6 TH/MM3 (4.0-11.0) Red Blood Count 3.11 MIL/MM3 (4.00-5.30) Hemoglobin 9.2 GM/DL (11.6-15.3) Hematocrit 27.7 % (35.0-46.0) Mean Corpuscular Volume 89.1 FL (80.0-100.0) Mean Corpuscular Hemoglobin 29.5 PG (27.0-34.0) Mean Corpuscular Hemoglobin Concent 33.1 % (32.0-36.0) Red Cell Distribution Width 14.3 % (11.6-17.2) Platelet Count 231 TH/MM3 (150-450) Mean Platelet Volume 7.7 FL (7.0-11.0) Blood Urea Nitrogen 11 MG/DL (7-18) Creatinine 0.92 MG/DL (0.50-1.00) Random Glucose 82 MG/DL (74-106) Calcium Level 8.5 MG/DL (8.5-10.1) Magnesium Level 2.1 MG/DL (1.5-2.5) Sodium Level 139 MEQ/L (136-145) Potassium Level 3.8 MEQ/L (3.5-5.1) Chloride Level 107 MEQ/L (98-107) Carbon Dioxide Level 24.8 MEQ/L (21.0-32.0) Anion Gap 7 MEQ/L (5-15) Estimat Glomerular Filtration Rate 73 ML/MIN (>89) Result Diagram: 04/18/1740904/18/17409 (1) 3-vessel coronary artery disease (2) Non-STEMI (non-ST elevated myocardial infarction) Plan: for surgery on am HBG 10.3, will need iron work up (3) S/P CABG x 3 David Paulino MD Apr 18, 2017 09:00
[2017-04-18] MEDS ORDERED: SOD PHOSPHATE/SOD BIPHOSPHATE (ADULT) ENEMA 133ML RECTAL PRN (09:15)
[2017-04-18] MEDS ORDERED: BISACODYL 10 MG SUPP RECTAL PRN (09:15)
[2017-04-18] MEDS ORDERED: GLUCAGON 1 MG/ML VIAL OTHER PRN (09:15)
[2017-04-18] MEDS ORDERED: DEXTROSE 50% IN WATER 50 ML VIAL(D50) IV PUSH PRN (09:15)
[2017-04-18] MEDS: MULTIVITAMIN INJ 10 ML, THIAMINE INJ 500 MG, FOLIC ACID INJ 1 MG in SODIUM CHLORID 0.9%... IV SCH (10:06)
[2017-04-18] MEDS: CLOPIDOGREL 75 MG TAB PO SCH (10:06)
[2017-04-18] MEDS: METOPROLOL TARTRATE 25 MG TAB PO SCH ×2 (10:06→21:40)
[2017-04-18] MEDS: FLUoxetine HCL 20 MG CAP PO SCH (10:07)
[2017-04-18] MEDS: ATORVASTATIN 40 MG TAB PO SCH (10:07)
[2017-04-18] MEDS: AMIODARONE 200 MG TAB PO SCH ×2 (10:07→21:40)
[2017-04-18] MEDS: SODIUM CHLORIDE 0.9% FLUSH 10 ML FLUSH IV FLUSH SCH ×2 (10:08→21:00)
[2017-04-18] MEDS: INSULIN ASPART SUPPLEMENTAL SCALE SQ SCH ×4 (11:01→21:41)
[2017-04-18] MEDS ORDERED: FUROSEMIDE 20 MG/2 ML VIAL IV PUSH ONE (13:15)
--- NOTE | 2017-04-18 14:21 | EKG ---
Date Performed: 04/18/2017 Time Performed: 04:09:18 PTAGE: 71 years EKG: CONSIDER ACUTE ST ELEVATION [place] Sinus rhythm Lateral ST elevation, CONSIDER ACUTE INFARCT Abnormal ECG PREVIOUS TRACING : 04/16/2017 05.24 DOCTOR: Maruicio Meadows Interpretating Date/Time 04/18/2017 14:15:37
[2017-04-18] MEDS: SENNOSIDES 8.6 MG TAB PO SCH (21:00)
[2017-04-18] MEDS: MONTELUKAST SODIUM 10 MG TAB PO SCH (21:40)
[2017-04-18] MEDS: DOCUSATE SODIUM 100 MG CAP PO SCH (21:40)
[2017-04-18] MEDS: GABAPENTIN 300 MG CAP PO SCH (21:51)
[2017-04-18] MEDS: traMADol HCL 50 MG TAB PO PRN (21:51)
[2017-04-19] VITALS (29 sets, daily range): BP systolic 115–136; BP diastolic 55–62; PULSE 68–89; RESP 16–20; TEMP 97.9–100.9; O2SAT 93–99
[2017-04-19] MEDS: ceFAZolin 2 GM PREMIX 50 ML IV SCH (00:03)
[2017-04-19] MEDS: INSULIN ASPART SUPPLEMENTAL SCALE SQ SCH ×5 (02:00→22:00)
[2017-04-19] MEDS: RESP: ALBUTEROL 2.5 MG/IPRATROPIUM 0.5 MG NEB (SCH) NEB ×4 (03:01→20:54)
[2017-04-19] MEDS: HYDROmorphone HCL PF 1 MG/ML VIAL IV PUSH PRN ×2 (03:41→22:42)
[2017-04-19 05:08] LABS: AUTOMATED NEUTROPHIL # 9.9 TH/MM3 (1.8-7.7); BASOPHIL # 0.1 TH/MM3 (0-0.2); BASOPHIL % 0.5 % (0.0-2.0); EOSINOPHIL # 0.1 TH/MM3 (0-0.4); EOSINOPHIL % 0.7 % (0.0-4.0); HEMATOCRIT 25.5 % (35.0-46.0); HEMO FLAGS DIFF FINAL; LYMPH % 14.7 % (9.0-44.0); LYMPHOCYTE # 1.9 TH/MM3 (1.0-4.8); MEAN CELL VOLUME 89.8 FL (80.0-100.0); MEAN CORPUSCULAR HEMOGLOBIN 29.1 PG (27.0-34.0); MEAN CORPUSCULAR HGB CONC 32.4 % (32.0-36.0); MONO % 8.9 % (0.0-8.0); NEUT % 75.2 % (16.0-70.0); PLATELET COUNT 209 TH/MM3 (150-450); RED BLOOD COUNT 2.83 MIL/MM3 (4.00-5.30); RED CELL DISTRIBUTION WIDTH 14.9 % (11.6-17.2); WHITE BLOOD COUNT 13.1 TH/MM3 (4.0-11.0)
[2017-04-19] MEDS: PANTOPRAZOLE SOD 40 MG DELAYED RELEASE TAB PO SCH (05:29)
[2017-04-19] MEDS: traMADol HCL 50 MG TAB PO PRN ×2 (05:29→17:16)
[2017-04-19 05:33] LABS: BICARBONATE 25.5 MEQ/L (21.0-32.0); MAGNESIUM 2.1 MG/DL (1.5-2.5)
[2017-04-19] MEDS: SODIUM CHLORIDE 0.9% FLUSH 10 ML FLUSH IV FLUSH SCH ×2 (09:00→22:21)
[2017-04-19] MEDS ORDERED: POLYETHYLENE GLYCOL 17 GM PKG PO SCH (09:00)
[2017-04-19] MEDS: MAGNESIUM HYDROXIDE SUSP 30 ML CUP PO SCH (09:00)
[2017-04-19] MEDS: MULTIVITAMIN INJ 10 ML, THIAMINE INJ 500 MG, FOLIC ACID INJ 1 MG in SODIUM CHLORID 0.9%... IV SCH (09:00)
--- NOTE | 2017-04-19 10:52 | PD.CAR.PN ---
CVT Progress Note Subjective/Hospital Course: 71/ female admitted with NSTEMI, underwent cardiac cath by Dr Willson 04/15/17, found to have EF 65% 3 vessel CAD LAD, Ramus, RCA , eval for CABG PMH: sarcoidosis lung eyes, skin ( CT chest no concerning pulmonary nodules noted morbid obesity with previous stomach stapling with reversal / dumping syndrome, degenerative arthritis, DM Type II HTN brachial cyst plexus pt now scheduled for surgery in am remains heparin and NTG gtt 04/17 Procedure 1. Urgent Off-pump Coronary Artery Bypass Grafting x 3 with Left Internal Mammary Artery (HARRIS) to the Left Anterior Descending (LAD), reverse saphenous vein graft to the ramus marginalis (RM), reverse saphenous vein graft to the Right Coronary Artery (RCA) 2. Right Leg Endoscopic Vein [place] 3. Intraoperative Vein Mapping 4. Multi-Level Intercostal Nerve Block. 04/18 Doing well. Extubated and tolerating Post-operative confusion improving. Very appropriate with no focal deficits Transfer CPCU Maintain CT Gentle diuresis 04/19 D/C CT Ambulate Discharge planning Objective: Vital Signs Date Time Temp Pulse Resp B/P (MAP) Pulse Ox O2 Delivery O2 Flow Rate FiO2 04/19/17 09:58 97 Nasal Cannula 3.00 04/19/17 06:00 78 04/19/17 05:00 89 04/19/17 04:00 84 04/19/17 03:20 100.9 79 18 136/62 (86) 97 04/19/17 03:20 97 Nasal Cannula 3.00 04/19/17 03:01 93 Nasal Cannula 3.00 04/19/17 03:00 81 04/19/17 02:00 76 04/19/17 01:00 72 04/19/17 00:00 74 04/18/17 23:32 Nasal Cannula 3.00 04/18/17 23:30 98.2 76 18 114/54 (74) 98 04/18/17 23:30 98 Nasal Cannula 4.00 04/18/17 23:00 77 04/18/17 22:00 78 04/18/17 21:00 92 04/18/17 20:32 Nasal Cannula 4.00 04/18/17 20:30 99.2 81 18 118/50 (72) 99 04/18/17 20:30 99 Nasal Cannula 5.00 04/18/17 20:00 80 04/18/17 19:00 71 04/18/17 18:00 68 04/18/17 17:00 68 04/18/17 16:15 99.1 69 20 88/51 (63) 98 04/18/17 16:00 68 04/18/17 15:00 77 04/18/17 14:37 99.0 73 20 103/54 (70) 99 04/18/17 11:00 76 04/18/17 11:00 98.7 76 18 103/49 (67) 96 Arterial Line Labs: Laboratory Tests Test 04/19/17 04:45 White Blood Count 13.1 TH/MM3 (4.0-11.0) Red Blood Count 2.83 MIL/MM3 (4.00-5.30) Hemoglobin 8.3 GM/DL (11.6-15.3) Hematocrit 25.5 % (35.0-46.0) Mean Corpuscular Volume 89.8 FL (80.0-100.0) Mean Corpuscular Hemoglobin 29.1 PG (27.0-34.0) Mean Corpuscular Hemoglobin Concent 32.4 % (32.0-36.0) Red Cell Distribution Width 14.9 % (11.6-17.2) Platelet Count 209 TH/MM3 (150-450) Mean Platelet Volume 7.5 FL (7.0-11.0) Neutrophils (%) (Auto) 75.2 % (16.0-70.0) Lymphocytes (%) (Auto) 14.7 % (9.0-44.0) Monocytes (%) (Auto) 8.9 % (0.0-8.0) Eosinophils (%) (Auto) 0.7 % (0.0-4.0) Basophils (%) (Auto) 0.5 % (0.0-2.0) Neutrophils # (Auto) 9.9 TH/MM3 (1.8-7.7) Lymphocytes # (Auto) 1.9 TH/MM3 (1.0-4.8) Monocytes # (Auto) 1.2 TH/MM3 (0-0.9) Eosinophils # (Auto) 0.1 TH/MM3 (0-0.4) Basophils # (Auto) 0.1 TH/MM3 (0-0.2) CBC Comment DIFF FINAL Differential Comment Blood Urea Nitrogen 21 MG/DL (7-18) Creatinine 1.06 MG/DL (0.50-1.00) Random Glucose 111 MG/DL (74-106) Calcium Level 8.1 MG/DL (8.5-10.1) Magnesium Level 2.1 MG/DL (1.5-2.5) Sodium Level 136 MEQ/L (136-145) Potassium Level 4.0 MEQ/L (3.5-5.1) Chloride Level 103 MEQ/L (98-107) Carbon Dioxide Level 25.5 MEQ/L (21.0-32.0) Anion Gap 8 MEQ/L (5-15) Estimat Glomerular Filtration Rate 62 ML/MIN (>89) Result Diagram: 04/19/17 0445 04/19/17 0445 (1) 3-vessel coronary artery disease (2) Non-STEMI (non-ST elevated myocardial infarction) Plan: for surgery on am HBG 10.3, will need iron work up (3) S/P CABG x 3 David Paulino MD Apr 19, 2017 10:52
[2017-04-19] MEDS: METOPROLOL TARTRATE 25 MG TAB PO SCH ×2 (13:40→22:20)
[2017-04-19] MEDS: ATORVASTATIN 40 MG TAB PO SCH (13:40)
[2017-04-19] MEDS: FLUoxetine HCL 20 MG CAP PO SCH (13:40)
[2017-04-19] MEDS: AMIODARONE 200 MG TAB PO SCH ×2 (13:41→22:20)
[2017-04-19] MEDS: amLODIPine BESYLATE 5 MG TAB PO SCH (13:41)
[2017-04-19] MEDS: DOCUSATE SODIUM 100 MG CAP PO SCH ×2 (13:41→22:20)
[2017-04-19] MEDS: MULTIVITAMINS/MINERALS THERAPEUTIC TAB PO SCH (13:41)
[2017-04-19] MEDS: CLOPIDOGREL 75 MG TAB PO SCH (13:42)
[2017-04-19] MEDS: SENNOSIDES 8.6 MG TAB PO SCH (22:20)
[2017-04-19] MEDS: GABAPENTIN 300 MG CAP PO SCH (22:20)
[2017-04-19] MEDS: MONTELUKAST SODIUM 10 MG TAB PO SCH (22:20)
[2017-04-20] VITALS (12 sets, daily range): BP systolic 99–125; BP diastolic 56–60; PULSE 66–73; RESP 16–18; TEMP 98–99.3; O2SAT 71–99
[2017-04-20] MEDS: INSULIN ASPART SUPPLEMENTAL SCALE SQ SCH ×2 (02:00→05:42)
[2017-04-20] MEDS: RESP: ALBUTEROL 2.5 MG/IPRATROPIUM 0.5 MG NEB (SCH) NEB ×3 (04:14→15:31)
[2017-04-20] MEDS: traMADol HCL 50 MG TAB PO PRN ×2 (05:42→12:01)
[2017-04-20] MEDS: PANTOPRAZOLE SOD 40 MG DELAYED RELEASE TAB PO SCH (05:42)
[2017-04-20] MEDS ORDERED: POTASSIUM CHLORIDE 10 MEQ CONTROLLED RELEASE TAB PO ONE (09:00)
[2017-04-20] MEDS ORDERED: FUROSEMIDE 20 MG/2 ML VIAL IV PUSH ONE (09:00)
[2017-04-20] MEDS: DOCUSATE SODIUM 100 MG CAP PO SCH (09:48)
[2017-04-20] MEDS: CLOPIDOGREL 75 MG TAB PO SCH (09:49)
[2017-04-20] MEDS: MULTIVITAMINS/MINERALS THERAPEUTIC TAB PO SCH (09:49)
[2017-04-20] MEDS: ATORVASTATIN 40 MG TAB PO SCH (09:49)
[2017-04-20] MEDS: METOPROLOL TARTRATE 25 MG TAB PO SCH (09:49)
[2017-04-20] MEDS: AMIODARONE 200 MG TAB PO SCH (09:49)
[2017-04-20] MEDS: FLUoxetine HCL 20 MG CAP PO SCH (09:50)
[2017-04-20] MEDS: amLODIPine BESYLATE 5 MG TAB PO SCH (09:50)
[2017-04-20] MEDS: MAGNESIUM HYDROXIDE SUSP 30 ML CUP PO SCH (09:50)
--- NOTE | 2017-04-20 10:10 | HHI.FPPN ---
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 Objective Vitals Vital Signs Date Time Temp Pulse Resp B/P (MAP) Pulse Ox O2 Delivery O2 Flow Rate FiO2 04/20/17 10:01 96 Nasal Cannula 1.00 04/20/17 07:30 99 Nasal Cannula 2.00 04/20/17 07:30 98.0 68 16 119/59 (79) 99 04/20/17 07:30 68 04/20/17 06:00 71 04/20/17 05:00 73 04/20/17 04:00 69 04/20/17 03:20 99 Nasal Cannula 2.00 04/20/17 03:20 98.5 68 18 99/56 (70) 99 04/20/17 03:00 68 04/20/17 02:00 67 04/20/17 01:00 66 04/20/17 00:00 72 04/19/17 23:32 Nasal Cannula 2.00 04/19/17 23:30 98.3 76 18 118/55 (76) 99 04/19/17 23:30 99 Nasal Cannula 3.00 04/19/17 23:00 74 04/19/17 22:00 78 04/19/17 21:00 70 04/19/17 20:56 97 Nasal Cannula 3.00 04/19/17 20:00 95 Nasal Cannula 3.00 04/19/17 20:00 98.6 83 18 129/60 (83) 95 04/19/17 20:00 68 04/19/17 19:00 69 04/19/17 18:00 70 04/19/17 17:00 70 04/19/17 16:00 69 04/19/17 16:00 96 Nasal Cannula 3.00 04/19/17 16:00 98.0 69 16 121/61 (81) 95 04/19/17 15:00 74 04/19/17 14:00 86 04/19/17 13:00 74 04/19/17 11:30 97.9 73 20 118/61 (80) 96 04/19/17 11:30 73 04/19/17 11:30 96 Nasal Cannula 3.00 04/19/17 11:00 76 I/O 04/19/17 04/19/17 04/19/17 04/20/179/17 10/9/17 07:00 15:00 23:00 07:00 15:00 23:00 Intake Total 590 ml 958 ml 595 ml Output Total 340 ml 500 ml 400 ml Balance 250 ml 458 ml 195 ml Intake Oral 240 ml 700 ml 480 ml IV Total 350 ml 258 ml 115 ml Output Urine Total 300 ml 400 ml 400 ml Chest Tube Drainage Total 40 ml 100 ml Bladder Scan Volume Amount 350 ml # Bowel Movements 1 0 0 Result Diagram: 04/19/1744404/19/17444 Objective Remarks GENERAL: SKIN: Warm and dry. HEAD: Atraumatic. Normocephalic. EYES: Pupils equal and round. No scleral icterus. No injection or drainage. ENT: No nasal bleeding or discharge. Mucous membranes pink and moist. NECK: Trachea midline. No JVD. CARDIOVASCULAR: Regular rate and rhythm. RESPIRATORY: No accessory muscle use. Clear to auscultation. Breath sounds equal bilaterally. GASTROINTESTINAL: Abdomen soft, non-tender, nondistended. Hepatic and splenic margins not palpable. MUSCULOSKELETAL: Extremities without clubbing, cyanosis, or edema. No obvious deformities. NEUROLOGICAL: Awake and alert. No obvious cranial nerve deficits. Motor grossly within normal limits. Five out of 5 muscle strength in the arms and legs. Normal speech. PSYCHIATRIC: Appropriate mood and affect; insight and judgment normal. Medications and IVs Current Medications Medications (Trade) Dose Ordered Sig/Cindy Route Start Time Stop Time Status Last Admin (Narcan Inj) 0.4 mg UNSCH PRN IV PUSH 04/15/17 07:15 (Lactulose Liq) 30 ml DAILY PRN PO 04/15/17 07:15 (PROzac) 20 mg DAILY PO 04/15/17 09:00 04/20/17 09:50 (Neurontin) 900 mg HS PO 04/15/17 21:00 04/19/17 22:20 (Atarax) 25 mg HS PRN PO 04/15/17 07:30 (Singulair) 10 mg HS PO 04/15/17 21:00 04/19/17 22:20 (Januvia) 100 mg HS PO 04/15/17 21:00 04/20/17 00:21 (Ultram) 100 mg Q6H PRN PO 04/15/17 07:30 04/20/17 12:01 (Lipitor) 40 mg DAILY PO 04/16/17 09:00 04/20/17 09:49 (Norvasc) 5 mg DAILY PO 04/15/17 10:45 04/20/17 09:50 (Pill Splitter) 1 ea UNSCH PRN OTHER 04/15/17 12:15 (Benadryl Inj) 25 mg Q6H PRN IV PUSH 04/15/17 15:30 04/17/17 00:25 (Lopressor) 25 mg Q12HR PO 04/16/17 10:00 04/20/17 09:49 (NS Flush) 2 ml BID IV FLUSH 04/17/17 11:45 04/19/17 22:21 (NS Flush) 2 ml UNSCH PRN IV FLUSH 04/17/17 11:45 (Plavix) 75 mg DAILY PO 04/18/17 09:00 04/20/17 09:49 (Protonix) 40 mg DAILY@06 PO 04/18/17 06:00 04/20/17 05:42 (Cordarone) 400 mg Q12HR PO 04/17/17 21:00 04/20/17 09:49 (Zofran Inj) 4 mg Q6H PRN IV PUSH 04/17/17 11:45 04/17/17 19:34 (Apresoline Inj) 10 mg Q4H PRN IV PUSH 04/17/17 11:45 (Lopressor Inj) 2.5 mg Q1H PRN IV PUSH 04/17/17 11:45 (Duoneb Neb) 1 ampule Q6HR NEB NEB 04/17/17 16:00 04/20/17 09:58 (Duoneb Neb) 1 ampule Q2HR NEB PRN NEB 04/17/17 11:45 (Colace) 100 mg BID PO 04/18/17 21:00 04/20/17 09:48 (Theragran M Tab) 1 tab DAILY PO 04/19/17 09:00 04/20/17 09:49 (Milk Of Magnesia Liq) 30 ml DAILY PO 04/19/17 09:00 04/20/17 09:50 (Dulcolax Supp) 10 mg UNSCH PRN RECTAL 04/18/17 09:15 (Miralax) 17 gm DAILY PO 04/19/17 09:00 (Senokot) 8.6 mg HS PO 04/18/17 21:00 04/19/17 22:20 (Fleets Enema (Adult)) 133 ml UNSCH PRN RECTAL 04/18/17 09:15 (D50w (Vial) Inj) 50 ml UNSCH PRN IV PUSH 04/18/17 09:15 (Glucagon Inj) 1 mg UNSCH PRN OTHER 04/18/17 09:15 (NovoLOG SUPPLEMENTAL SCALE) 1 ACHS SQ 04/20/17 12:00 A/P Assessment and Plan ASSESSMENT AND PLAN: Non-ST elevation PR- Cont. heparin, ASA, antianginals. S/P CABG. Chest pain Diabetes- Sliding scale insulin Urgent hypertension- BB AND PRN ANTIHTN Headache Sarcoidosis Asthma DVT PROPHYLAXIS: SCD, TEDS, HEPARIN GI PROPHYLAXIS: IV PROTONIX Clint Bustos MD Apr 20, 2017 10:10
--- NOTE | 2017-04-20 10:59 | RADRPT ---
EXAM DATE/TIME: 04/20/2017 10:19 [facility] COMPARISON: CHEST SINGLE AP, April 18, 2017, 4:33. INDICATIONS : Post chest tube removal, no shortness of breath MEDICAL HISTORY : Hypertension. Diabetes mellitus type II. SURGICAL HISTORY : Cholecystectomy. CABG. Appendectomy. Hysterectomy, bilateral knees ENCOUNTER: Subsequent ACUITY: 4 - 6 days PAIN SCORE: 0/10 LOCATION: Bilateral chest FINDINGS: Chest tubes have been removed. Heart remains enlarged. Sternal wires are evident. Minimal bibasila r parenchymal changes noted. There is no pneumothorax. CONCLUSION: There is no pneumothorax following chest tube removal. Devon Levine MD FACR on April 20, 2017 at 10:44 Board Certified Radiologist. This report was verified electronically.
[2017-04-20] MEDS ORDERED: INSULIN ASPART SUPPLEMENTAL SCALE SQ SCH (12:00)
[2017-04-20] MEDS ORDERED: NOVOLOGP2 SQ (16:00)
[2017-04-20] MEDS ORDERED: ATOR40TA16 PO (16:00)
[2017-04-20] MEDS ORDERED: PANT40TA3 PO (16:00)
[2017-04-20] MEDS ORDERED: VENTAER INH (16:00)
[2017-04-20] MEDS ORDERED: METO25TA3 PO (16:00)
[2017-04-20] MEDS ORDERED: THERM PO (16:00)
[2017-04-20] MEDS ORDERED: POLY17S PO (16:00)
[2017-04-20] MEDS ORDERED: AMLO5 PO (16:00)
[2017-04-20] MEDS ORDERED: PLAV75TA29 PO (16:00)
[2017-04-20] MEDS ORDERED: ULTR50TA5 PO (16:00)
[2017-04-20] MEDS ORDERED: AMIO200T PO (16:00)
[2017-04-20] MEDS ORDERED: DOCU1CAP39 PO (16:00)
--- NOTE | 2017-04-20 16:06 | HHI.DS ---
Discharge Summary Admission Date Apr 17, 2017 at 09:21 Discharge Date: Apr 20, 2017 Admitting Diagnosis chest pain, elevated trop (1) H/O sarcoidosis Diagnosis: Principal ICD Codes: Z86.2 - Personal history of diseases of the blood and blood-forming organs and certain disorders involving the immune mechanism Status: Chronic (2) Non-STEMI (non-ST elevated myocardial infarction) Diagnosis: Principal ICD Codes: I21.4 - Non-ST elevation (NSTEMI) myocardial infarction Status: Acute (3) Chest pain Diagnosis: Principal ICD Codes: R07.9 - Chest pain, unspecified Status: Acute (4) Primary localized osteoarthrosis, hand ICD Codes: M19.049 - Primary localized osteoarthrosis of hand Status: Chronic (5) Diabetic peripheral neuropathy associated with type 2 diabetes mellitus Diagnosis: Principal ICD Codes: E11.42 - Type 2 diabetes mellitus with diabetic polyneuropathy Status: Chronic (6) S/P CABG x 3 Diagnosis: Secondary ICD Codes: Z95.1 - Presence of aortocoronary bypass graft Status: Acute Procedures 1. Urgent Off-pump Coronary Artery Bypass Grafting x 3 with Left Internal Mammary Artery (HARRIS) to the Left Anterior Descending (LAD), reverse saphenous vein graft to the ramus marginalis (RM), reverse saphenous vein graft to the Right Coronary Artery (RCA) 2. Right Leg Endoscopic Vein [place] 3. Intraoperative Vein Mapping 04/17 Brief History 71/ female admitted with NSTEMI, underwent cardiac cath by Dr Willson 04/15/17, found to have EF 65% 3 vessel CAD LAD, Ramus, RCA , eval for CABG PMH: sarcoidosis lung eyes, skin ( CT chest no concerning pulmonary nodules noted morbid obesity with previous stomach stapling with reversal / dumping syndrome, degenerative arthritis, DM Type II HTN brachial cyst plexus pt now scheduled for surgery in am remains heparin and NTG gtt 04/17 Procedure 1. Urgent Off-pump Coronary Artery Bypass Grafting x 3 with Left Internal Mammary Artery (HARRIS) to the Left Anterior Descending (LAD), reverse saphenous vein graft to the ramus marginalis (RM), reverse saphenous vein graft to the Right Coronary Artery (RCA) 2. Right Leg Endoscopic Vein [place] 3. Intraoperative Vein Mapping 4. Multi-Level Intercostal Nerve Block. CBC/BMP: 04/19/17 0445 04/19/17 0445 Significant Findings Laboratory Tests Test 04/18/17 04:10 04/19/17 04:45 White Blood Count 15.6 TH/MM3 (4.0-11.0) 13.1 TH/MM3 (4.0-11.0) Red Blood Count 3.11 MIL/MM3 (4.00-5.30) 2.83 MIL/MM3 (4.00-5.30) Hemoglobin 9.2 GM/DL (11.6-15.3) 8.3 GM/DL (11.6-15.3) Hematocrit 27.7 % (35.0-46.0) 25.5 % (35.0-46.0) Estimat Glomerular Filtration Rate 73 ML/MIN (>89) 62 ML/MIN (>89) Neutrophils (%) (Auto) 75.2 % (16.0-70.0) Monocytes (%) (Auto) 8.9 % (0.0-8.0) Neutrophils # (Auto) 9.9 TH/MM3 (1.8-7.7) Monocytes # (Auto) 1.2 TH/MM3 (0-0.9) Blood Urea Nitrogen 21 MG/DL (7-18) Creatinine 1.06 MG/DL (0.50-1.00) Random Glucose 111 MG/DL (74-106) Calcium Level 8.1 MG/DL (8.5-10.1) Imaging Last Impressions Chest X-Ray 04/20/17 0000 Signed Impressions: Service Date/Time: Thursday, April 20, 2017 10:19 - CONCLUSION: There is no pneumothorax following chest tube removal. Devon Levine MD FACR Lower Extremity Ultrasound 04/15/17 Signed Impressions: Service Date/Time: Saturday, April 15, 2017 15:31 - CONCLUSION: 1. Patent greater saphenous veins with measurements, as above. Daniel Alatorre MD Chest CT 04/15/17 Signed Impressions: Service Date/Time: April 11:50 - CONCLUSION: Negative exam other than mild bibasilar atelectasis. Dann Mcclain MD Carotid Artery Ultrasound 04/15/17 Signed Impressions: Service Date/Time: Saturday, April 15, 2017 14:35 - CONCLUSION: 1. Mild calcified carotid plaque without significant flow-limiting stenosis. 2. Antegrade vertebral artery flow bilaterally. Daniel Alatorre MD PE at Discharge GENERAL: SKIN: Warm and dry. prevena dressing to chest , incision intact right leg HEAD: Normocephalic. EYES: No scleral icterus. No injection or drainage. NECK: Supple, trachea midline. No JVD or lymphadenopathy. CARDIOVASCULAR: Regular rate and rhythm without murmurs, gallops, or rubs. RESPIRATORY: Breath sounds equal bilaterally. No accessory muscle use. diminished in bases, otherwise CTA GASTROINTESTINAL: Abdomen soft, non-tender, nondistended. MUSCULOSKELETAL: No cyanosis, or edema. BACK: Nontender without obvious deformity. No CVA tenderness. Hospital Course 04/18 Doing well. Extubated and tolerating Post-operative confusion improving. Very appropriate with no focal deficits Transfer [facility]PCU Maintain CT Gentle diuresis 04/19 D/C CT Ambulate Discharge planning 04/20 + BM ambulating with assist stable for dc to rehab heart rhythm stable gentle diuresis given Discharge Disposition: Disch w/ Home Health Serv Discharge Instructions DIET: Follow Instructions for: Heart Healthy Diet, Diabetic Diet Activities you can perform: Full Weight Bearing, Shower Only-No Bath Activities to avoid: Strenuous Activity, Driving Additional Activity Instructio: no lifting > 8 lbs or gallon of milk Follow up Referrals: Appointment for Follow Up Cardiology PCP Follow-up New Medications: Albuterol 18 GM Inh (Ventolin Hfa 18 GM Inh) 90 Mcg/Act Aer 2 PUFF INH Q4-6H PRN for SHORTNESS OF BREATH, #1 INHALER 0 Refills Insulin Aspart Inj (Novolog Inj) 1,000 Unit/10 Ml Vial 1-9 UNITS SQ ACHS for Blood Sugar Management, #10 ML 0 Refills Max dose at bedtime:( )units; sugars less than 70,(0)units; sugars 150-199,(1) unit; sugars 200-249,(3) units; sugars 250-299,(5) units; sugars 300-349,(7) units; sugars greater than 349,(9) units Amiodarone (Amiodarone) 200 Mg Tab 200 MG PO Q12HR for heart rhythm for 14 Days, #28 TAB 0 Refills for 2 weeks only , no refill , prophylaxis Amlodipine (Norvasc) 5 Mg Tab 5 MG PO DAILY for Blood Pressure Management, #30 TAB 2 Refills Atorvastatin (Atorvastatin) 40 Mg Tab 40 MG PO DAILY for Cholesterol Management, #30 TAB 2 Refills Clopidogrel (Plavix) 75 Mg Tab 75 MG PO DAILY for Blood Clot Prevention, #30 TAB 2 Refills Docusate Sodium (Dok) 100 Mg Cap 100 MG PO BID for Constipation, #60 CAP 0 Refills Metoprolol Tartrate (Metoprolol Tartrate) 25 Mg Tab 25 MG PO Q12HR for Blood Pressure Management, #60 TAB 2 Refills Multiple Vitamins W/ Minerals (Thera M Plus) 1 Tab 1 TAB PO DAILY for multi vitamin, #30 TAB 2 Refills Pantoprazole (Pantoprazole) 40 Mg Tab 40 MG PO DAILY@06 for GERD, #30 TAB 2 Refills Polyethylene Glycol 3350 Powder (Polyethylene Glycol 3350 Powder) 17 Gram Pow 17 GM PO DAILY for Constipation, #30 PACKET 0 Refills Tramadol (Ultram) 50 Mg Tab 50 MG PO Q6H PRN for PAIN SCALE 1 TO 6, #40 TAB Continued Medications: Fluoxetine (Fluoxetine) 20 Mg Capsule 20 MG PO DAILY, #30 CAP 0 Refills Gabapentin (Gabapentin) 300 Mg Cap 900 MG PO HS, #60 CAP 0 Refills Glipizide (Glipizide) 10 Mg Tab 10 MG PO DAILY for Blood Sugar Management, #30 TAB 0 Refills Take 30 minutes before a meal Hydroxyzine HCl (Hydroxyzine HCl) 25 Mg Tab 25 MG PO HS PRN for ITCHING, TAB 0 Refills Lidocaine Patch 12 HR (Lidocaine Patch 12 HR) 5 % Patch 1 PATCH TOPICAL BID for Pain Management, #1 BOX 0 Refills Remove patch after 12 hours Montelukast (Singulair) 10 Mg Tab 10 MG PO HS, #30 TAB 0 Refills Sitagliptin (Januvia) 100 Mg Tab 100 MG PO HS for Blood Sugar Management, #30 TAB 0 Refills Discontinued Medications: Acetaminophen/Diphenhydramine (Acetaminophen Pm Caplet) 500 Mg-25 Mg Tablet 1 TAB PO HS Tramadol (Tramadol) 50 Mg Tab 100 MG PO Q6H PRN for PAIN, #31 TAB 0 Refills Valsartan-Hydrochlorothiazide (Valsartan-Hydrochlorothiazide) 320-12.5 Mg Tab 1 TAB PO DAILY for Blood Pressure Management, #30 TAB 0 Refills Isi Oliveira Apr 20, 2017 16:06
[2017-04-20] MEDS ORDERED: PROT40TA PO (19:04)
[2017-04-28] MEDS ORDERED: WHEEMIS3 (13:13)
[2017-04-28] MEDS ORDERED: [UNRECOGNIZED DRUG - SUPPLY] (13:13)
[2017-04-28] MEDS ORDERED: COMMODE 3-IN-11 MIS (13:13)
[2017-04-29] MEDS ORDERED: AMIO200T PO (15:11)
[2017-04-29] MEDS ORDERED: FLUO20CA12 PO (15:11)
[2017-04-29] MEDS ORDERED: NEUR300C PO (15:11)
[2017-04-29] MEDS ORDERED: PANT40TA3 PO (15:11)
[2017-04-29] MEDS ORDERED: SITA1TAB2 PO (15:11)
[2017-04-29] MEDS ORDERED: METO25TA3 PO (15:11)
[2017-04-29] MEDS ORDERED: MONT10TA4 PO (15:11)
[2017-04-29] MEDS ORDERED: PLAV75TA29 PO (15:11)
[2017-04-29] MEDS ORDERED: ATOR40TA16 PO (15:11)
[2017-04-29] MEDS ORDERED: AMLO5 PO (15:11)
[2017-04-29] MEDS ORDERED: THERM PO (15:11)
[2017-04-29] MEDS ORDERED: GLIP5 PO (15:11)
[2017-04-29] MEDS ORDERED: VENTAER INH (15:11)
[2017-04-30] MEDS ORDERED: ULTR50TA5 PO (09:09)
== END 2017-04-20 18:26 | disposition home health service (06) | DRG 234 ==
LOC: NEPC 05:41 → INTOOBSV 07:01 → NEDA 07:01 → HCIS 10:42 → OBSVTOIN 04-17 09:21 → HCVI 04-17 12:23 → HCPC 04-18 14:04
PROVIDERS: ADMIT Family Medicine; ATTEND Thoracic Surgery (Cardiothoracic Vascular Surgery)
PROC: B2111ZZ Fluoroscopy of Multiple Coronary Arteries using Low Osmolar Contrast (ICD-10-PCS; 2017-04-15)
PROC: B2151ZZ Fluoroscopy of Left Heart using Low Osmolar Contrast (ICD-10-PCS; 2017-04-15)
PROC: 3E0T3BZ Introduction of Anesthetic Agent into Peripheral Nerves and Plexi, Percutaneous Approach (ICD-10-PCS; 2017-04-15)
PROC: 4A023N7 Measurement of Cardiac Sampling and Pressure, Left Heart, Percutaneous Approach (ICD-10-PCS; principal; 2017-04-15 09:15)
PROC: 021109W Bypass Coronary Artery, Two Arteries from Aorta with Autologous Venous Tissue, Open Approach (ICD-10-PCS; 2017-04-17)
PROC: 06BP4ZZ Excision of Right Saphenous Vein, Percutaneous Endoscopic Approach (ICD-10-PCS; 2017-04-17)
PROC: 02100Z9 Bypass Coronary Artery, One Artery from Left Internal Mammary, Open Approach (ICD-10-PCS; 2017-04-17 07:10)
DX: I21.4 Non-ST elevation (NSTEMI) myocardial infarction (principal); E11.42 Type 2 diabetes mellitus with diabetic polyneuropathy; K91.1 Postgastric surgery syndromes; I25.119 Atherosclerotic heart disease of native coronary artery with unspecified angina pectoris; I10 Essential (primary) hypertension; J45.909 Unspecified asthma, uncomplicated; D86.89 Sarcoidosis of other sites; I16.0 Hypertensive urgency; M19.90 Unspecified osteoarthritis, unspecified site; L29.9 Pruritus, unspecified; F41.9 Anxiety disorder, unspecified; E66.9 Obesity, unspecified; Z79.84 Long term (current) use of oral hypoglycemic drugs; Z82.49 Family history of ischemic heart disease and other diseases of the circulatory system; Z98.84 Bariatric surgery status; Z68.34 Body mass index [BMI] 34.0-34.9, adult; Z88.5 Allergy status to narcotic agent; Z88.6 Allergy status to analgesic agent
CPT/HCPCS: 71010; 71250; 76937; 80048; 80061; 81001; 82550; 82948; 83036; 83735; 84484; 85014; 85025; 85027; 85610; 85730; 86850; 86900; 86901; 86920; 87641; 93005; 93306; 93458; 93880; 93970; 93998; 94002; 94010; 94150; 94640; 94664; 94667; 94668; 96374; 96375; C1760; C1768; C1769; C1893; C9113; C9248; C9290; G0269; J0171; J0461; J0690; J1100; J1170; J1200; J1644; J1815; J1817; J1885; J1940; J2060; J2250; J2270; J2405; J3010; J3370; J3411; J3480; J7030; J7040; J7050; J7120; Q9967

== ENCOUNTER 2017-05-06 22:34 | Emergency (ER) | payer MEDICARE, OTHER ==
[~2017-05-06] VITALS: Ht 175.3 cm; Wt 96.5 kg
[~2017-05-06 22:34] MED LIST changes: -ACET25TA2 PO; +AMIO200T PO; +AMLO5 PO; +ATOR40TA16 PO; +COMMODE 3-IN-11 MIS; +DOCU1CAP39 PO; +GLIP5 PO; -LIDO1PAD52 TOPICAL; -LOMO2.5T PO; +METO25TA3 PO; +MONT10TA4 PO; +NEUR300C PO; +NOVOLOGP2 SQ; -OMEP20TA PO; +PANT40TA3 PO; +PLAV75TA29 PO; +POLY17S PO; +PROT40TA PO; -ROBA500T PO; +THERM PO; -TRAM50TA PO; +ULTR50TA5 PO; -VALS320T4 PO; +VENTAER INH; +WHEEMIS3; +[UNRECOGNIZED DRUG - SUPPLY]
[2017-05-06 22:42] VITALS: BP 167/76; PULSE 69; RESP 16; TEMP 99.5; O2SAT 97
[2017-05-06] MEDS ORDERED: SODIUM CHLORIDE 0.9% FLUSH 10 ML FLUSH IVF PRN (22:45)
--- NOTE | 2017-05-06 22:59 | PD ---
HPI Chief Complaint: Syncope/Near-Syncope Time Seen by Provider: 22:43 Travel History International Travel<30 days: No Contact w/Intl Traveler<30days: No Traveled to known affect area: No History of Present Illness HPI 71-year-old female who recently had CABG on 04/17/17, brought in by ambulance from home for evaluation of right shoulder pain and right neck pain. Patient reports that she was trying to calm her sons down when she felt backwards. She is unsure how she will fell backwards. She does not believe she lost consciousness. She now has pain in her right lateral neck and right shoulder which is moderate, worse with movement and palpation. She denies any other injuries. No chest pain or dyspnea. PFSH Past Medical History Arthritis: No Asthma: Yes Autoimmune Disease: Yes Blood Disorders: No Anxiety: Yes Depression: Yes Heart Rhythm Problems: No Cancer: No Cardiovascular Problems: Yes High Cholesterol: No Chest Pain: No Congestive Heart Failure: No COPD: No Cerebrovascular Accident: No Diabetes: Yes ( januvia) Patient Takes Glucophage: No Diminished Hearing: No Endocrine: Yes Gastrointestinal Disorders: Yes (SEVERED VAGAL NERVE FROM GASTRIC BYPASS, DUMPING SYNDROME) GERD: No Genitourinary: No Headaches: Yes Hepatitis: No Hiatal Hernia: No Hypertension: Yes Immune Disorder: Yes (sarcodosis) Implanted Vascular Access Dvce: Yes Kidney Stones: No Musculoskeletal: Yes (hip pain ) Neurologic: Yes Psychiatric: Yes Reproductive: No Respiratory: Yes Immunizations Current: Yes Migraines: Yes Renal Failure: No Seizures: No Sleep Apnea: No Thyroid Disease: No Ulcer: No Tetanus Vaccination: < 5 Years Influenza Vaccination: Yes Menopausal: Yes Past Surgical History Abdominal Surgery: Yes (Gall bladder 1988, Gastric Bypass 1988, REVERSAL GASTRIC BYPASS 2004) AICD: No Appendectomy: Yes Arteriovenous Shunt: No Body Medical Devices: 3 SCREWS L HIP Cardiac Surgery: No Cholecystectomy: Yes Coronary Artery Bypass Graft: Yes (TRIPLE BYPASS 2016) Ear Surgery: No Endocrine Surgery: No Eye Surgery: No Genitourinary Surgery: No Gynecologic Surgery: Yes (Hysterectomy 1969) Hysterectomy: Yes Insulin Pump: No Joint Replacement: Yes ([place] knees) Oral Surgery: No Pacemaker: No Thoracic Surgery: No Tympanostomy Tube: No Other Surgery: Yes (hysterectomy 1969) Social History Alcohol Use: No Tobacco Use: No Substance Use: No Allergies-Medications (Allergen,Severity, Reaction): Coded Allergies: acetaminophen (Unverified Allergy, Severe, ITCHING, 04/15/17) aspirin (Unverified Allergy, Severe, GI UPSET, 04/15/17) codeine (Unverified Allergy, Severe, ITCHING, 04/15/17) hydrocodone (Unverified Allergy, Severe, NAUSEA, ITCHING, 04/15/17) PT STATES SHE TAKES BENADRYL PRIOR TO TAKING LORTABS morphine (Unverified Allergy, Severe, ITCHING, 04/15/17) oxycodone (Unverified Allergy, Severe, GI UPSET, 04/15/17) propoxyphene (Unverified Allergy, Severe, ITCHING, 04/15/17) Reported Meds & Prescriptions Reported Meds & Active Scripts Active Ultram (Tramadol HCl) 50 Mg Tab 50 Mg PO Q12HR PRN Thera M Plus (Multivitamins/Minerals Therapeutic) 1 Tab 1 Tab PO DAILY 30 Days Glucotrol (Glipizide) 5 Mg Tab 5 Mg PO DAILY@0800 30 Days Take 30 minutes before a meal Januvia (Sitagliptin Phosphate) 100 Mg Tab 100 Mg PO HS 30 Days Pantoprazole (Pantoprazole Sodium) 40 Mg Tab 40 Mg PO DAILY@06 30 Days Montelukast (Montelukast Sodium) 10 Mg Tab 10 Mg PO HS 30 Days Fluoxetine (Fluoxetine HCl) 20 Mg Capsule 20 Mg PO DAILY 30 Days Neurontin (Gabapentin) 300 Mg Cap 300 Mg PO TID 30 Days Norvasc (Amlodipine Besylate) 5 Mg Tab 5 Mg PO DAILY 30 Days Metoprolol Tartrate 25 Mg Tab 25 Mg PO Q12HR 30 Days Atorvastatin (Atorvastatin Calcium) 40 Mg Tab 40 Mg PO HS 30 Days Amiodarone (Amiodarone HCl) 200 Mg Tab 200 Mg PO Q12HR 30 Days Plavix (Clopidogrel Bisulfate) 75 Mg Tab 75 Mg PO DAILY 30 Days Ventolin Hfa 18 GM Inh (Albuterol Sulfate) 90 Mcg/Act Aer 2 Puff INH Q4-6H PRN [Walker with Seat] Each Commode 3-in-1 (Device) 1 Mis Mis Ea .ROUTE DIRECTED Wheelchair (Device) 1 Mis Mis Ea .ROUTE DIRECTED Novolog Inj (Insulin Aspart) 1,000 Unit/10 Ml Vial 1-9 Units SQ ACHS Max dose at bedtime:( )units; sugars less than 70,(0)units; sugars 150-199,(1) unit; sugars 200-249,(3) units; sugars 250-299,(5) units; sugars 300-349,(7) units; sugars greater than 349,(9) units Thera M Plus (Multivitamins/Minerals Therapeutic) 1 Tab 1 Tab PO DAILY Pantoprazole (Pantoprazole Sodium) 40 Mg Tab 40 Mg PO DAILY@06 Polyethylene Glycol 3350 Powder (Polyethylene Glycol) 17 Gram Pow 17 Gm PO DAILY Dok (Docusate Sodium) 100 Mg Cap 100 Mg PO BID Norvasc (Amlodipine Besylate) 5 Mg Tab 5 Mg PO DAILY Metoprolol Tartrate 25 Mg Tab 25 Mg PO Q12HR Atorvastatin (Atorvastatin Calcium) 40 Mg Tab 40 Mg PO DAILY Amiodarone (Amiodarone HCl) 200 Mg Tab 200 Mg PO Q12HR 14 Days for 2 weeks only , no refill , prophylaxis Plavix (Clopidogrel Bisulfate) 75 Mg Tab 75 Mg PO DAILY Reported Protonix (Pantoprazole Sodium) 40 Mg Tab 40 Mg PO DAILY Fluoxetine (Fluoxetine HCl) 20 Mg Capsule 20 Mg PO DAILY Januvia (Sitagliptin Phosphate) 100 Mg Tab 100 Mg PO HS Singulair (Montelukast Sodium) 10 Mg Tab 10 Mg PO HS Glipizide 10 Mg Tab 10 Mg PO DAILY Take 30 minutes before a meal Hydroxyzine HCl 25 Mg Tab 25 Mg PO HS PRN Gabapentin 300 Mg Cap 900 Mg PO HS Review of Systems Except as stated in HPI: all other systems reviewed are Neg Physical Exam Narrative GENERAL: Well-developed, well-nourished, awake, alert, GCS 15, no apparent distress. SKIN: Focused skin assessment warm/dry. No lacerations, abrasions, or ecchymosis. Midline/vertical/anterior chest wall surgical incision that is well -healing without warmth or erythema. HEAD: Atraumatic. Normocephalic. EYES: Pupils equal and round. No scleral icterus. No injection or drainage. ENT: Mucous membranes pink and moist. NECK: Trachea midline. No JVD. CARDIOVASCULAR: Regular rate and rhythm. RESPIRATORY: No accessory muscle use. Clear to auscultation. Breath sounds equal bilaterally. GASTROINTESTINAL: Abdomen soft, non-tender, nondistended. MUSCULOSKELETAL: Right anterior shoulder and right clavicle with moderate diffuse tenderness without obvious deformity or step-off, with normal range of motion. There is no midline cervical spine step-off or tenderness. There is mild right lateral neck tenderness without masses. NEUROLOGICAL: Awake and alert. No obvious cranial nerve deficits. Motor grossly within normal limits. Normal speech. PSYCHIATRIC: Appropriate mood and affect; insight and judgment normal. Data Data Last Documented VS Vital Signs Date Time Temp Pulse Resp B/P (MAP) Pulse Ox O2 Delivery O2 Flow Rate FiO2 05/07/17 00:30 65 16 160/76 (104) 97 Room Air 05/06/17 22:42 99.5 Orders Orders Electrocardiogram (05/06/17 22:45) Complete Blood Count With Diff (05/06/17 22:45) Comprehensive Metabolic Panel (05/06/17 22:45) Act Partial Throm Time (Ptt) (05/06/17 22:45) Prothrombin Time / Inr (Pt) (05/06/17 22:45) Chest, Single Ap (05/06/17 22:45) Ct Brain W/O Iv Contrast(Rout) (05/06/17 22:45) Ct Cerv Spine W/O Contrast (05/06/17 22:45) Ecg Monitoring (05/06/17 22:45) Iv Access Insert/Monitor (05/06/17 22:45) Oximetry (05/06/17 22:45) Sodium Chloride 0.9% Flush (Ns Flush) (05/06/17 22:45) Shoulder, Complete (>2vws) (05/06/17 ) Hydromorphone Pf Inj (Dilaudid Pf Inj) (05/06/17 23:15) Cyclobenzaprine (Flexeril) (05/07/17 00:15) Urinalysis - C+S If Indicated (05/07/17 00:09) Cath For Specimen (05/07/17 00:09) Labs Laboratory Tests Test 05/06/17 22:50 05/07/17 00:30 White Blood Count 7.3 TH/MM3 Red Blood Count 3.70 MIL/MM3 Hemoglobin 10.9 GM/DL Hematocrit 33.3 % Mean Corpuscular Volume 89.8 FL Mean Corpuscular Hemoglobin 29.6 PG Mean Corpuscular Hemoglobin Concent 32.9 % Red Cell Distribution Width 14.9 % Platelet Count 275 TH/MM3 Mean Platelet Volume 7.4 FL Neutrophils (%) (Auto) 52.8 % Lymphocytes (%) (Auto) 32.6 % Monocytes (%) (Auto) 10.7 % Eosinophils (%) (Auto) 3.8 % Basophils (%) (Auto) 0.1 % Neutrophils # (Auto) 3.8 TH/MM3 Lymphocytes # (Auto) 2.4 TH/MM3 Monocytes # (Auto) 0.8 TH/MM3 Eosinophils # (Auto) 0.3 TH/MM3 Basophils # (Auto) 0.0 TH/MM3 CBC Comment DIFF FINAL Differential Comment Prothrombin Time 10.3 SEC Prothromb Time International Ratio 0.9 RATIO Activated Partial Thromboplast Time 23.7 SEC Blood Urea Nitrogen 13 MG/DL Creatinine 0.98 MG/DL Random Glucose 174 MG/DL Total Protein 7.6 GM/DL Albumin 3.0 GM/DL Calcium Level 8.8 MG/DL Alkaline Phosphatase 111 U/L Aspartate Amino Transf (AST/SGOT) 11 U/L Alanine Aminotransferase (ALT/SGPT) 18 U/L Total Bilirubin 0.3 MG/DL Sodium Level 138 MEQ/L Potassium Level 3.8 MEQ/L Chloride Level 105 MEQ/L Carbon Dioxide Level 24.7 MEQ/L Anion Gap 8 MEQ/L Estimat Glomerular Filtration Rate 68 ML/MIN Urine Color LIGHT-YELLOW Urine Turbidity CLEAR Urine pH 5.5 Urine Specific [place] 1.008 Urine Protein NEG mg/dL Urine Glucose (UA) NEG mg/dL Urine Ketones NEG mg/dL Urine Occult Blood SMALL Urine Nitrite NEG Urine Bilirubin NEG Urine Urobilinogen LESS THAN 2.0 MG/DL Urine Leukocyte Esterase SMALL Urine RBC 1 /hpf Urine WBC 4 /hpf Urine Squamous Epithelial Cells 1 /hpf Urine Mucus FEW /lpf Microscopic Urinalysis Comment CATH-CULT NOT IND MDM Medical Decision Making Medical Screen Exam Complete: Yes Emergency Medical Condition: Yes Differential Diagnosis Mechanical fall, shoulder contusion, cervical spine injury, intracranial trauma , syncope Narrative Course Initial vital signs show heart rate 69, blood pressure 167/76, pulse ox 97% on room air, oral temp 99.5 from high. CBC: WBC 7.3, hemoglobin 10.9, hematocrit 33.3, platelets 275. CMP is remarkable for random glucose 174, otherwise unremarkable. UA is not suggestive of UTI. CT head: No acute disease. CT cervical spine: Degenerative changes without fracture. Degenerative subluxation at C5-6 Chest x-ray: No acute disease. Right shoulder x-ray: No acute fracture. Resorption distal clavicle likely sequela of previous trauma. The patient had a mechanical fall. She is complaining of muscular skeletal pain to her right shoulder and right neck. There are no fractures. She is complaining of a spasm sensation which is worse with movements. She was given pain medication and reports that her symptoms have improved, however she is requesting something for muscle relaxant. Diagnosis Primary Impression: Fall Qualified Codes: W19.XXXA - Unspecified fall, initial encounter Additional Impression: Contusion of right shoulder Qualified Codes: S40.011A - Contusion of right shoulder, initial encounter Referrals: Primary Care Physician 3 days Additional Instructions: Follow-up with your primary care physician this week. Return to the emergency department for worsening symptoms or any other concerns. Disposition: 01 DISCHARGE HOME Condition: Stable Dk Boyer MD May 06, 2017 22:59
[2017-05-06 23:15] LABS: AUTOMATED NEUTROPHIL # 3.8 TH/MM3 (1.8-7.7); BASOPHIL % 0.1 % (0.0-2.0); EOSINOPHIL # 0.3 TH/MM3 (0-0.4); EOSINOPHIL % 3.8 % (0.0-4.0); HEMATOCRIT 33.3 % (35.0-46.0); HEMOGLOBIN 10.9 GM/DL (11.6-15.3); LYMPH % 32.6 % (9.0-44.0); LYMPHOCYTE # 2.4 TH/MM3 (1.0-4.8); MEAN CELL VOLUME 89.8 FL (80.0-100.0); MEAN CORPUSCULAR HEMOGLOBIN 29.6 PG (27.0-34.0); MEAN CORPUSCULAR HGB CONC 32.9 % (32.0-36.0); MEAN PLATELET VOLUME 7.4 FL (7.0-11.0); MONO % 10.7 % (0.0-8.0); MONOCYTE # 0.8 TH/MM3 (0-0.9); NEUT % 52.8 % (16.0-70.0); PLATELET COUNT 275 TH/MM3 (150-450); RED CELL DISTRIBUTION WIDTH 14.9 % (11.6-17.2); WHITE BLOOD COUNT 7.3 TH/MM3 (4.0-11.0)
[2017-05-06] MEDS ORDERED: HYDROmorphone HCL PF 0.5 MG/0.5 ML SYRINGE IV PUSH ONE (23:15)
[2017-05-06 23:31] LABS: ALT (GPT) 18 U/L (10-53); AST (GOT) 11 U/L (15-37); BICARBONATE 24.7 MEQ/L (21.0-32.0); BLOOD UREA NITROGEN 13 MG/DL (7-18); CALCIUM 8.8 MG/DL (8.5-10.1); CHLORIDE 105 MEQ/L (98-107); CREATININE 0.98 MG/DL (0.50-1.00); GLOMERULAR FILTRATION RATE 68 ML/MIN (>89); GLUCOSE,RANDOM 174 MG/DL (74-106); SODIUM (NA) 138 MEQ/L (136-145)
[2017-05-06 23:33] LABS: ALKALINE PHOSPHATASE 111 U/L (45-117); TOTAL BILIRUBIN ADULT 0.3 MG/DL (0.2-1.0); TOTAL PROTEIN 7.6 GM/DL (6.4-8.2)
[2017-05-06 23:36] LABS: INTERNATIONAL NORMALIZED RATIO 0.9 RATIO; PROTHROMBIN TIME - PATIENT 10.3 SEC (9.8-11.6)
--- NOTE | 2017-05-06 23:53 | RADRPT ---
EXAM DATE/TIME: 05/06/2017 23:21 [facility] COMPARISON: No previous studies available for comparison. INDICATIONS : Right shoulder pain after patient fell today MEDICAL HISTORY : None. SURGICAL HISTORY : None. ENCOUNTER: Initial ACUITY: 1 day PAIN SCORE: 10/10 LOCATION: Right entire shoulder FINDINGS: Multiple view examination of the right shoulder demonstrates no evidence of fracture or dislocation. The glenohumeral joint is maintained. The clavicular joints is not well-defined with apparent resorp tion of the distal clavicle. There is some slight periosteal reaction in this region. CONCLUSION: 1. No acute fracture. 2. Resorption distal clavicle likely sequela of previous trauma. Agustin Dougherty MD on May 06, 2017 at 23:47 Board Certified Radiologist. This report was verified electronically.
--- NOTE | 2017-05-06 23:56 | RADRPT ---
EXAM DATE/TIME: 05/06/2017 23:26 [facility] COMPARISON: CHEST SINGLE AP, April 20, 2017, 10:19. INDICATIONS : Trauma to chest after patient fell tonight MEDICAL HISTORY : None. SURGICAL HISTORY : None. ENCOUNTER: Initial ACUITY: 1 day PAIN SCORE: 0/10 LOCATION: Bilateral chest FINDINGS: A single view of the chest demonstrates the lungs to be symmetrically aerated without evidence of mas s, infiltrate or effusion. Mild cardiomegaly and previous CABG. The cardiomediastinal contours are un remarkable. Osseous structures are intact. CONCLUSION: No acute disease. Agustin Dougherty MD on May 06, 2017 at 23:54 Board Certified Radiologist. This report was verified electronically.
--- NOTE | 2017-05-06 23:56 | RADRPT ---
EXAM DATE/TIME: 05/06/2017 23:24 [facility] COMPARISON: CT BRAIN W/O CONTRAST, October 19, 2015, 21:57. INDICATIONS : Trauma, fall. Syncopal episode. RADIATION DOSE: 56.35 CTDIvol (mGy) MEDICAL HISTORY : Hypertension. Cardiovascular disease Diabetes. Sarcodosis. SURGICAL HISTORY : CABG ENCOUNTER: Initial ACUITY: 1 day PAIN SCALE: 0/10 LOCATION: cranial TECHNIQUE: Multiple contiguous axial images were obtained of the head. Using automated exposure control and adj ustment of the mA and/or kV according to patient size, radiation dose was kept as low as reasonably a chievable to obtain optimal diagnostic quality images. DICOM format image data is available electro nically for review and comparison. FINDINGS: CEREBRUM: The ventricles are normal for age. Old lacunar infarct right basal ganglia. No evidence of midline sh ift, mass lesion, hemorrhage or acute infarction. No extra-axial fluid collections are seen. POSTERIOR FOSSA: The cerebellum and brainstem are intact. The 4th ventricle is midline. The cerebellopontine angle i s unremarkable. EXTRACRANIAL: The visualized portion of the orbits is intact. SKULL: The calvaria is intact. No evidence of skull fracture. CONCLUSION: No acute disease. Agustin Dougherty MD on May 06, 2017 at 23:52 Board Certified Radiologist. This report was verified electronically.
--- NOTE | 2017-05-06 23:59 | RADRPT ---
EXAM DATE/TIME: 05/06/2017 23:26 [facility] COMPARISON: No previous studies available for comparison. INDICATIONS : Trauma, fall. RADIATION DOSE: 37.38 CTDIvol (mGy) MEDICAL HISTORY : Hypertension. Cardiovascular disease Diabetes. Sarcodosis. SURGICAL HISTORY : CABG ENCOUNTER: Initial ACUITY: 1 day PAIN SCALE: 0/10 LOCATION: neck TECHNIQUE: Volumetric scanning of the cervical spine was performed. Multiplanar reconstructions in the sagittal, coronal and oblique axial planes were performed. Using automated exposure control and adjustment o f the mA and/or kV according to patient size, radiation dose was kept as low as reasonably achievable to obtain optimal diagnostic quality images. DICOM format image data is available electronically f or review and comparison. FINDINGS: VERTEBRAE: Normal vertebral body height. ALIGNMENT: Minimal anterolisthesis C5 on C6. Degenerative changes with anterior osteophytes at multiple levels g reatest at C6-7. Multilevel posterior disc osteophyte complexes without canal stenosis including C2-3 , C3-4, C4-5, C5-6 and C6-7 levels. CONCLUSION: Degenerative changes without fracture. Degenerative subluxation at C5-6. Agustin Dougherty MD on May 06, 2017 at 23:55 Board Certified Radiologist. This report was verified electronically.
[2017-05-07] MEDS ORDERED: CYCLOBENZAPRINE HCL 10 MG TAB PO ONE (00:15)
[2017-05-07 00:30] VITALS: BP 160/76; PULSE 65; RESP 16; O2SAT 97
[2017-05-07 00:54] LABS: BILIRUBIN, URINE NEG (NEG); BLOOD, URINE SMALL (NEG); GLUCOSE,URINE NEG (NEG); KETONE, URINE NEG (NEG); MUCUS URINE FEW /lpf (OCC); NITRITE,URINE NEG (NEG); PH, URINE 5.5 (5.0-8.5); SQUAMOUS EPITHELIAL CELL URINE 1 /hpf (0-5); URINE COLOR LIGHT-YELLOW (YELLW/STRAW); URINE LEUKOCYTE ESTERASE SMALL (NEG)
[2017-05-07 01:23] VITALS: BP 160/76
--- NOTE | 2017-05-07 18:01 | EKG ---
Date Performed: 05/06/2017 Time Performed: 22:49:37 PTAGE: 71 years EKG: Sinus rhythm NONSPECIFIC T-WAVE ABNORMALITY SINCE PRIOR TRACING T WAVE CHANGES ARE NEW. BORDERLINE ECG PREVIOUS TRACING 04/18/2017 @ ..18 DOCTOR: Rachel Lima Interpretating Date/Time 05/07/2017 17:59:35
== END 2017-05-07 01:24 | disposition home or self-care (01) ==
LOC: NEPC 22:34
DX: S40.011A Contusion of right shoulder, initial encounter (principal); M54.2 Cervicalgia; R94.31 Abnormal electrocardiogram [ECG] [EKG]; J45.909 Unspecified asthma, uncomplicated; F41.9 Anxiety disorder, unspecified; F32.9 Major depressive disorder, single episode, unspecified; E10.9 Type 1 diabetes mellitus without complications; I10 Essential (primary) hypertension; W19.XXXA Unspecified fall, initial encounter
CPT/HCPCS: 70450; 71010; 72125; 73030; 80053; 81001; 85025; 85610; 85730; 93005; 96374; 99285; J1170; P9612

== ENCOUNTER 2017-06-01 12:44 | Emergency (ER) | payer MEDICARE, OTHER ==
[~2017-06-01] VITALS: Ht 175.3 cm; Wt 92.0 kg
[~2017-06-01 12:44] MED LIST changes: +TRAM50 PO; -ULTR50TA5 PO
[2017-06-01 12:49] VITALS: BP 189/84; PULSE 64; RESP 18; TEMP 98.8; O2SAT 96
[2017-06-01] MEDS ORDERED: ACETAMINOPHEN 500 MG CPLT PO ONE (13:00)
--- NOTE | 2017-06-01 13:02 | PD ---
HPI Chief Complaint: Fall Time Seen by Provider: 12:56 Travel History International Travel<30 days: No Contact w/Intl Traveler<30days: No Traveled to known affect area: No History of Present Illness HPI 71-year-old female presents to the ED for evaluation after mechanical fall. Patient is actually 6 weeks status post CABG, on Plavix. Patient states that she was bent over to reach for something, lost her balance, landed on her buttocks and then slumped to her left side, striking her head. She denies loss of consciousness. On presentation she complains of 7/10 proximal sternal chest pain. This is improved to 2/10 by applying pressure over the chest. She denies palpitations, shortness of breath, diaphoresis, nausea, vomiting. She also complains of mild left-sided headache, rated 2/10. She denies dizziness, vision changes. She is followed by Dr. Bustos, PCP and Dr. Isaac Willson, cardiology. 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, DUMPING SYNDROME) GERD: No Genitourinary: No Headaches: Yes Hepatitis: No Hiatal Hernia: No Hypertension: Yes Immune Disorder: Yes (sarcodosis) Implanted Vascular Access Dvce: Yes Kidney Stones: No Musculoskeletal: Yes (hip pain ) Neurologic: Yes Psychiatric: Yes Reproductive: No Respiratory: Yes Immunizations Current: Yes Migraines: Yes Renal Failure: No Seizures: No Sleep Apnea: No Thyroid Disease: No Ulcer: No Menopausal: Yes Past Surgical History Abdominal Surgery: Yes (Gall bladder 1988, Gastric Bypass 1988, REVERSAL GASTRIC BYPASS 2004) AICD: No Appendectomy: Yes Arteriovenous Shunt: No Body Medical Devices: 3 SCREWS L HIP Cardiac Surgery: No Cholecystectomy: Yes Coronary Artery Bypass Graft: Yes (TRIPLE BYPASS 2016) Ear Surgery: No Endocrine Surgery: No Eye Surgery: No Genitourinary Surgery: No Gynecologic Surgery: Yes (Hysterectomy 1969) Hysterectomy: Yes Insulin Pump: No Joint Replacement: Yes (loreto knees) Oral Surgery: No Pacemaker: No Thoracic Surgery: No Tympanostomy Tube: No Other Surgery: Yes (hysterectomy 1969) Social History Alcohol Use: No Tobacco Use: No Substance Use: No Allergies-Medications (Allergen,Severity, Reaction): Coded Allergies: aspirin (Unverified Allergy, Severe, GI UPSET, 06/01/17) codeine (Unverified Allergy, Severe, ITCHING, 06/01/17) hydrocodone (Unverified Allergy, Severe, NAUSEA, ITCHING, 06/01/17) PT STATES SHE TAKES BENADRYL PRIOR TO TAKING LORTABS morphine (Unverified Allergy, Severe, ITCHING, 06/01/17) oxycodone (Unverified Allergy, Severe, GI UPSET, 06/01/17) propoxyphene (Unverified Allergy, Severe, ITCHING, 06/01/17) Reported Meds & Prescriptions Reported Meds & Active Scripts Active Ultram (Tramadol HCl) 50 Mg Tab 50 Mg PO Q12HR PRN Thera M Plus (Multivitamins/Minerals Therapeutic) 1 Tab 1 Tab PO DAILY 30 Days Glucotrol (Glipizide) 5 Mg Tab 5 Mg PO DAILY@0800 30 Days Take 30 minutes before a meal Januvia (Sitagliptin Phosphate) 100 Mg Tab 100 Mg PO HS 30 Days Montelukast (Montelukast Sodium) 10 Mg Tab 10 Mg PO HS 30 Days Fluoxetine (Fluoxetine HCl) 20 Mg Capsule 20 Mg PO DAILY 30 Days Neurontin (Gabapentin) 300 Mg Cap 300 Mg PO TID 30 Days Norvasc (Amlodipine Besylate) 5 Mg Tab 5 Mg PO DAILY 30 Days Metoprolol Tartrate 25 Mg Tab 25 Mg PO Q12HR 30 Days Atorvastatin (Atorvastatin Calcium) 40 Mg Tab 40 Mg PO HS 30 Days Amiodarone (Amiodarone HCl) 200 Mg Tab 200 Mg PO Q12HR 30 Days Ventolin Hfa 18 GM Inh (Albuterol Sulfate) 90 Mcg/Act Aer 2 Puff INH Q4-6H PRN [Walker with Seat] Each Polyethylene Glycol 3350 Powder (Polyethylene Glycol) 17 Gram Pow 17 Gm PO DAILY Reported Protonix (Pantoprazole Sodium) 40 Mg Tab 40 Mg PO DAILY Hydroxyzine HCl 25 Mg Tab 25 Mg PO HS PRN Gabapentin 300 Mg Cap 900 Mg PO HS Review of Systems Except as stated in HPI: all other systems reviewed are Neg Physical Exam Narrative GENERAL: Well-nourished, well-developed black female, on a backboard, in a c- collar. SKIN: Focused skin assessment warm/dry. Well healing sternotomy scar without signs of infection. HEAD: Normocephalic. Atraumatic. EYES: No scleral icterus. No injection or drainage. PERRLA. EOMI. NECK: Supple, trachea midline. No JVD or lymphadenopathy. No midline tenderness to palpation. No limitations to range of motion of the neck. C- collar removed. CARDIOVASCULAR: Regular rate and rhythm without murmurs, gallops, or rubs CHEST: Tender to palpation over the proximal one third of the sternum. No appreciable deformity or crepitus. RESPIRATORY: Breath sounds clear and equal bilaterally. No accessory muscle use. GASTROINTESTINAL: Abdomen soft, non-tender, nondistended. Active bowel sounds MUSCULOSKELETAL: No cyanosis, or edema. Extremities spontaneously. NEUROLOGICAL: Awake and alert. Cranial nerves II through XII intact. Motor and sensory grossly within normal limits. Five out of 5 muscle strength in all muscle groups. Normal speech. BACK: Nontender without obvious deformity. No CVA tenderness. Data Data Last Documented VS Vital Signs Date Time Temp Pulse Resp B/P (MAP) Pulse Ox O2 Delivery O2 Flow Rate FiO2 06/01/17 12:56 65 20 96 Room Air 06/01/17 12:49 98.8 189/84 (119) Orders Orders Ct Brain W/O Iv Contrast(Rout) (06/01/17 ) Chest, Pa & Lat (06/01/17 ) Acetaminophen (Tylenol) (06/01/17 13:00) Ed Discharge Order (06/01/17 14:38) MDM Medical Decision Making Medical Screen Exam Complete: Yes Emergency Medical Condition: Yes Differential Diagnosis Contusion versus musculoskeletal pain versus hematoma versus other Narrative Course 71-year-old female presents to the ED for evaluation after mechanical fall. Patient is 6 weeks s/p CABG, on Plavix. Patient states that she was bent over to reach for something, lost her balance, landed on her buttocks and then slumped to her left side, striking her head. She denies loss of consciousness. On presentation she complains of 7/10 proximal sternal chest pain, improved to 2/10 by applying pressure over the chest. Denies palpitations, SOB, diaphoresis,N/V. Also complains of mild left-sided headache, rated 2/10. She is followed by Dr. Bustos, PCP and Dr. Isaac Willson, cardiology. Vitals reviewed. Physical exam reveals tenderness to palpation over the proximal third of the sternum but is otherwise unremarkable. C-collar was removed. Patient states she takes Tylenol at home for the pain. She was administered [address]. [address] of the brain reveals no acute injury per radiology read. X-ray of the chest reveals no appreciable disassociation of the sternum or breaking of the sternal wires. I discussed the results of the workup of the patient. She reports some improvement of her pain and headache. She has tramadol at home for pain as well. She is instructed to return to normal, gentle activity as tolerated, take tramadol as previously prescribed, as needed for pain greater than 6. She states that she has an appointment in 3 days with her primary care provider. She is stable and discharged home. Diagnosis Primary Impression: Fall from standing Qualified Codes: W19.XXXA - Unspecified fall, initial encounter Additional Impression: Pain of sternum Referrals: Clint Bustos MD Patient Instructions: General Instructions, Sternal Precautions (GEN) Additional Instructions: Rest, hydrate. Resume normal, gentle activity as tolerated. Resume at home medications as previously prescribed. Follow-up with Dr. Bustos this week. Return to the ED for any urgent or emergent medical condition. Disposition: 01 DISCHARGE HOME Condition: Stable Veronica Caraballo Jun 01, 2017 13:02
--- NOTE | 2017-06-01 13:33 | RADRPT ---
EXAM DATE/TIME: 06/01/2017 13:08 [facility] COMPARISON: CT BRAIN W/O CONTRAST, May 06, 2017, 23:24. INDICATIONS : Fall,head pain. RADIATION DOSE: 56.35 CTDIvol (mGy) MEDICAL HISTORY : Cardiovascular disease. Hypertension. Diabetes,sarcodosis SURGICAL HISTORY : Appendectomy. Cholecystectomy.Hysterectomy. ENCOUNTER: Initial ACUITY: 1 day PAIN SCALE: 3/10 LOCATION: cranial TECHNIQUE: Multiple contiguous axial images were obtained of the head. Using automated exposure control and adj ustment of the mA and/or kV according to patient size, radiation dose was kept as low as reasonably a chievable to obtain optimal diagnostic quality images. DICOM format image data is available electro nically for review and comparison. FINDINGS: CEREBRUM: Atrophy. Periventricular low attenuation change involving both cerebral hemispheres. 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 The ventricles are normal for age. No evidence of m idline shift, mass lesion, hemorrhage or acute infarction. No extra-axial fluid collections are seen . POSTERIOR FOSSA: The cerebellum and brainstem are intact. The 4th ventricle is midline. The cerebellopontine angle i s unremarkable. EXTRACRANIAL: The visualized portion of the orbits is intact. SKULL: The calvaria is intact. No evidence of skull fracture. CONCLUSION: 1. No acute intracranial abnormality. 2. Atrophy and chronic small vessel ischemic change. Dann Madison Jr., MD on June 01, 2017 at 13:30 Board Certified Radiologist. This report was verified electronically.
--- NOTE | 2017-06-01 14:26 | RADRPT ---
EXAM DATE/TIME: 06/01/2017 13:47 [facility] COMPARISON: CHEST SINGLE AP, May 06, 2017, 23:26. INDICATIONS : Post CABG, Apr. Fell on left side, very painful left chest wall. MEDICAL HISTORY : Myocardial infarction. SURGICAL HISTORY : CABG. ENCOUNTER: Initial ACUITY: 1 day PAIN SCORE: 9/10 LOCATION: Left chest FINDINGS: Frontal and lateral views of the chest demonstrate a normal-sized cardiac silhouette in this patient post median sternotomy. No effusion, consolidation, or pneumothorax is identified. The bones and soft tissues demonstrate no acute finding. There are degenerative changes of the thoracic spine. CONCLUSION: No acute cardiopulmonary abnormality is identified. Mason Blanca MD on June 01, 2017 at 14:24 Board Certified Radiologist. This report was verified electronically.
== END 2017-06-01 15:00 | disposition home or self-care (01) ==
LOC: NEPC 12:44
DX: R07.89 Other chest pain (principal); R51 Headache; Z79.02 Long term (current) use of antithrombotics/antiplatelets; J45.909 Unspecified asthma, uncomplicated; F41.9 Anxiety disorder, unspecified; F32.9 Major depressive disorder, single episode, unspecified; E11.9 Type 2 diabetes mellitus without complications; I10 Essential (primary) hypertension; Z79.899 Other long term (current) drug therapy
CPT/HCPCS: 70450; 71020; 99284

== ENCOUNTER 2017-07-20 17:45 | Emergency (ER) | payer MEDICARE, OTHER ==
[~2017-07-20 17:45] MED LIST changes: -COMMODE 3-IN-11 MIS; -DOCU1CAP39 PO; -GLIP10TA6 PO; -MONT10TA2 PO; -NOVOLOGP2 SQ; -PANT40TA3 PO; -PLAV75TA29 PO; -WHEEMIS3
[2017-07-20 17:47] VITALS: BP 201/74; PULSE 84; RESP 14; TEMP 98.2; O2SAT 98
--- NOTE | 2017-07-20 19:20 | PD ---
HPI Chief Complaint: Medical Clearance Time Seen by Provider: 18:12 Travel History International Travel<30 days: No Contact w/Intl Traveler<30days: No Traveled to known affect area: No History of Present Illness HPI Pt is a 71-year-old female presenting to emergency Department for evaluation of left wrist pain. Patient denies injury or trauma. She states she woke up and it was sore this morning. She reports her pain as a 6 out of 10. There are no alleviating factors, pain is 6 exacerbated in her wrist with movement. Pain in her chest wall is exacerbated to touch. Patient is also presenting with a lump that has appeared near her surgical scar from open heart surgery. She states she noticed this yesterday. She states it is is tender to palpation. She denies any fever, chills, chest pain, shortness of breath. 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, DUMPING SYNDROME) GERD: No Genitourinary: No Headaches: Yes Hepatitis: No Hiatal Hernia: No Hypertension: Yes Immune Disorder: Yes (sarcodosis) Implanted Vascular Access Dvce: Yes Kidney Stones: No Musculoskeletal: Yes (hip pain ) Neurologic: Yes Psychiatric: Yes Reproductive: No Respiratory: Yes Immunizations Current: Yes Migraines: Yes Renal Failure: No Seizures: No Sleep Apnea: No Thyroid Disease: No Ulcer: No Menopausal: Yes Past Surgical History Abdominal Surgery: Yes (Gall bladder 1988, Gastric Bypass 1988, REVERSAL GASTRIC BYPASS 2004) AICD: No Appendectomy: Yes Arteriovenous Shunt: No Body Medical Devices: 3 SCREWS L HIP Cardiac Surgery: No Cholecystectomy: Yes Coronary Artery Bypass Graft: Yes (TRIPLE BYPASS 2016) Ear Surgery: No Endocrine Surgery: No Eye Surgery: No Genitourinary Surgery: No Gynecologic Surgery: Yes (Hysterectomy 1969) Hysterectomy: Yes Insulin Pump: No Joint Replacement: Yes (loreto knees) Oral Surgery: No Pacemaker: No Thoracic Surgery: No Tympanostomy Tube: No Other Surgery: Yes (hysterectomy 1969) Social History Alcohol Use: No Tobacco Use: No Substance Use: No Allergies-Medications (Allergen,Severity, Reaction): Coded Allergies: aspirin (Unverified Allergy, Severe, GI UPSET, 06/01/17) codeine (Unverified Allergy, Severe, ITCHING, 06/01/17) hydrocodone (Unverified Allergy, Severe, NAUSEA, ITCHING, 06/01/17) PT STATES SHE TAKES BENADRYL PRIOR TO TAKING LORTABS morphine (Unverified Allergy, Severe, ITCHING, 06/01/17) oxycodone (Unverified Allergy, Severe, GI UPSET, 06/01/17) propoxyphene (Unverified Allergy, Severe, ITCHING, 06/01/17) Reported Meds & Prescriptions Reported Meds & Active Scripts Active Ultram (Tramadol HCl) 50 Mg Tab 50 Mg PO Q12HR PRN Thera M Plus (Multivitamins/Minerals Therapeutic) 1 Tab 1 Tab PO DAILY 30 Days Glucotrol (Glipizide) 5 Mg Tab 5 Mg PO DAILY@0800 30 Days Take 30 minutes before a meal Januvia (Sitagliptin Phosphate) 100 Mg Tab 100 Mg PO HS 30 Days Montelukast (Montelukast Sodium) 10 Mg Tab 10 Mg PO HS 30 Days Fluoxetine (Fluoxetine HCl) 20 Mg Capsule 20 Mg PO DAILY 30 Days Neurontin (Gabapentin) 300 Mg Cap 300 Mg PO TID 30 Days Norvasc (Amlodipine Besylate) 5 Mg Tab 5 Mg PO DAILY 30 Days Metoprolol Tartrate 25 Mg Tab 25 Mg PO Q12HR 30 Days Atorvastatin (Atorvastatin Calcium) 40 Mg Tab 40 Mg PO HS 30 Days Amiodarone (Amiodarone HCl) 200 Mg Tab 200 Mg PO Q12HR 30 Days Ventolin Hfa 18 GM Inh (Albuterol Sulfate) 90 Mcg/Act Aer 2 Puff INH Q4-6H PRN [Walker with Seat] Each Polyethylene Glycol 3350 Powder (Polyethylene Glycol) 17 Gram Pow 17 Gm PO DAILY Reported Protonix (Pantoprazole Sodium) 40 Mg Tab 40 Mg PO DAILY Hydroxyzine HCl 25 Mg Tab 25 Mg PO HS PRN Gabapentin 300 Mg Cap 900 Mg PO HS Review of Systems Except as stated in HPI: all other systems reviewed are Neg Musculoskeletal: Positive: Myalgias, Pain Skin: Positive Lumps Physical Exam Narrative GENERAL: Well-developed, well-nourished, alert female. Presenting in no acute distress. SKIN: Warm and dry. Palpable 2 cm linear lump to mid sternum adjacent to surgical scar. No erythema, induration, fluctuance noted. HEAD: Normocephalic. EYES: No scleral icterus. No injection or drainage. NECK: Supple, trachea midline. No JVD or lymphadenopathy. CARDIOVASCULAR: Regular rate RESPIRATORY: No accessory muscle use. MUSCULOSKELETAL: No cyanosis, or edema. No obvious deformity Data Data Last Documented VS Vital Signs Date Time Temp Pulse Resp B/P (MAP) Pulse Ox O2 Delivery O2 Flow Rate FiO2 07/20/17 17:47 98.2 84 14 201/74 (116) 98 MDM Medical Decision Making Medical Screen Exam Complete: Yes Emergency Medical Condition: Yes Interpretation(s) Vital Signs Date Time Temp Pulse Resp B/P (MAP) Pulse Ox O2 Delivery O2 Flow Rate FiO2 07/20/17 17:47 98.2 84 14 201/74 (116) 98 Differential Diagnosis Arthritis versus carpal tunnel syndrome versus sprain versus strain versus abscess versus keloid versus other Narrative Course Patient is a 71-year-old female presenting with plane of wrist pain and a lump to her surgical scar. Patient is well-appearing, she is mildly hypertensive on arrival. The patient is awaiting bed placement. Patient presented to the triage desk, she stated that she did not want to wait any longer and would follow-up. She was encouraged to stay and be evaluated. She continued to decline. AMA: The risks of leaving against medical advice without further evaluation treatment were discussed with the patient. These risks include cardiac dysfunction, cardiac dysrhythmia, possible heart attack, possible stroke or . The patient indicated understanding of these risks and appeared to have the capacity to make this decision. Diagnosis Primary Impression: Left against medical advice Maryellen Mcnally Jul 20, 2017 19:20
== END 2017-07-20 19:37 | disposition left against medical advice (07) ==
LOC: NED 17:45
DX: M25.532 Pain in left wrist (principal); R07.89 Other chest pain; I10 Essential (primary) hypertension; J45.909 Unspecified asthma, uncomplicated; F41.9 Anxiety disorder, unspecified; F32.9 Major depressive disorder, single episode, unspecified; E11.9 Type 2 diabetes mellitus without complications; D86.9 Sarcoidosis, unspecified; Z79.899 Other long term (current) drug therapy
CPT/HCPCS: 99281

== ENCOUNTER → 2017-09-29 | Outpatient (CLI) | payer MEDICARE, OTHER ==
[2017-09-29 09:10] LABS: BASOPHIL % 0.7 % (0.0-2.0); EOSINOPHIL # 0.1 TH/MM3 (0-0.4); HEMATOCRIT 35.5 % (35.0-46.0); HEMOGLOBIN 11.7 GM/DL (11.6-15.3); LYMPH % 37.1 % (9.0-44.0); LYMPHOCYTE # 2.1 TH/MM3 (1.0-4.8); MEAN CORPUSCULAR HEMOGLOBIN 28.2 PG (27.0-34.0); MEAN CORPUSCULAR HGB CONC 32.8 % (32.0-36.0); MEAN PLATELET VOLUME 7.7 FL (7.0-11.0); MONO % 6.6 % (0.0-8.0); MONOCYTE # 0.4 TH/MM3 (0-0.9); NEUT % 53.6 % (16.0-70.0); PLATELET COUNT 260 TH/MM3 (150-450); RED BLOOD COUNT 4.13 MIL/MM3 (4.00-5.30); RED CELL DISTRIBUTION WIDTH 14.3 % (11.6-17.2); WHITE BLOOD COUNT 5.7 TH/MM3 (4.0-11.0)
[2017-09-29 09:31] LABS: ALBUMIN 3.1 GM/DL (3.4-5.0); AST (GOT) 10 U/L (15-37); BICARBONATE 25.8 MEQ/L (21.0-32.0); BLOOD UREA NITROGEN 11 MG/DL (7-18); CALCIUM 8.6 MG/DL (8.5-10.1); CHLORIDE 105 MEQ/L (98-107); CREATININE 0.79 MG/DL (0.50-1.00); GLOMERULAR FILTRATION RATE 87 ML/MIN (>89); GLUCOSE,FASTING 142 MG/DL (74-99); SODIUM (NA) 140 MEQ/L (136-145)
[2017-09-29 09:32] LABS: CHOLESTEROL 175 MG/DL (120-200)
[2017-09-29 09:42] LABS: ALKALINE PHOSPHATASE 121 U/L (45-117); ALT (GPT) 14 U/L (10-53); CHOLESTEROL/ HDL RATIO 2.76 RATIO; HDL CHOLESTEROL 63.4 MG/DL (40.0-60.0); LDL CHOLESTEROL 93 MG/DL (0-99); TOTAL BILIRUBIN ADULT 0.5 MG/DL (0.2-1.0); TOTAL PROTEIN 7.4 GM/DL (6.4-8.2); TRIGLYCERIDES 94 MG/DL (42-150)
== END ==
LOC: CLAB 08:05
PROVIDERS: ATTEND Family Medicine
DX: E78.00 Pure hypercholesterolemia, unspecified (principal); D64.9 Anemia, unspecified; I10 Essential (primary) hypertension; E78.5 Hyperlipidemia, unspecified; E03.9 Hypothyroidism, unspecified; R53.81 Other malaise; Z79.891 Long term (current) use of opiate analgesic
CPT/HCPCS: 36415; 80053; 80061; 84443; 85025

== ENCOUNTER → 2018-01-07 | Outpatient (CLI) | payer MEDICARE, OTHER ==
[2018-01-07 11:47] LABS: AUTOMATED NEUTROPHIL # 2.8 TH/MM3 (1.8-7.7); BASOPHIL % 0.3 % (0.0-2.0); EOSINOPHIL # 0.1 TH/MM3 (0-0.4); HEMATOCRIT 36.1 % (35.0-46.0); HEMOGLOBIN 11.8 GM/DL (11.6-15.3); LYMPH % 42.4 % (9.0-44.0); LYMPHOCYTE # 2.5 TH/MM3 (1.0-4.8); MEAN CELL VOLUME 87.6 FL (80.0-100.0); MEAN CORPUSCULAR HEMOGLOBIN 28.6 PG (27.0-34.0); MEAN CORPUSCULAR HGB CONC 32.6 % (32.0-36.0); MONO % 7.9 % (0.0-8.0); MONOCYTE # 0.5 TH/MM3 (0-0.9); NEUT % 47.4 % (16.0-70.0); PLATELET COUNT 252 TH/MM3 (150-450); RED BLOOD COUNT 4.12 MIL/MM3 (4.00-5.30); WHITE BLOOD COUNT 5.8 TH/MM3 (4.0-11.0)
[2018-01-07 12:03] LABS: AST (GOT) 12 U/L (15-37); BICARBONATE 26.5 MEQ/L (21.0-32.0); BLOOD UREA NITROGEN 14 MG/DL (7-18); CALCIUM 8.3 MG/DL (8.5-10.1); CHLORIDE 106 MEQ/L (98-107); CREATININE 0.91 MG/DL (0.50-1.00); GLOMERULAR FILTRATION RATE 74 ML/MIN (>89); GLUCOSE,FASTING 106 MG/DL (74-99); SODIUM (NA) 143 MEQ/L (136-145)
[2018-01-07 12:05] LABS: ALT (GPT) 16 U/L (10-53)
[2018-01-07 12:07] LABS: ALKALINE PHOSPHATASE 122 U/L (45-117); TOTAL BILIRUBIN ADULT 0.4 MG/DL (0.2-1.0)
[2018-01-07 14:00] LABS: HEMOGLOBIN A1C 7.4 % (4.3-6.0)
== END ==
LOC: CLAB 09:31
PROVIDERS: ATTEND Family Medicine
DX: D64.9 Anemia, unspecified (principal); I10 Essential (primary) hypertension; R10.84 Generalized abdominal pain; E11.9 Type 2 diabetes mellitus without complications; D56.5 Hemoglobin E-beta thalassemia; Z79.891 Long term (current) use of opiate analgesic
CPT/HCPCS: 36415; 80053; 83036; 85025